=== PATIENT | male | born 1955 | race Caucasian/White ===

== ENCOUNTER 2017-07-30 16:29 | Emergency (ER) | payer OTHER ==
[2017-07-30] MEDS: IBUPROFEN 600 MG TAB PO ×2 (17:09)
[2017-07-30 18:08] LABS: INFLUENZA A AMPLIFICATION NEGATIVE (NEGATIVE); INFLUENZA B AMPLIFICATION NEGATIVE (NEGATIVE)
[2017-07-30] MEDS: cefTRIAXone SOD 1 GM VIAL (J0696) IM ×2 (18:32)
== END 2017-07-30 18:56 | disposition home or self-care (01) ==
LOC: M ED 16:29
DX: J06.9 Acute upper respiratory infection, unspecified (principal); F17.200 Nicotine dependence, unspecified, uncomplicated
CPT/HCPCS: J0696

== ENCOUNTER → 2018-07-07 | Outpatient (CLI) | payer OTHER ==
[~2018-07-07] MED LIST: LISI10TA2 PO; PROAAER10 INH; ZITHTAB PO
--- NOTE | 2018-07-07 12:42 | REP ---
Chest x-ray: Two views. History: Cough. History of pneumonia. Comparison study: July 30, 2017. Findings: There is a 2.2 cm noncalcified lung nodule projecting in the right upper lobe region. This merits further evaluation. Remaining lung mena appear clear. Pleural angles are sharp. Heart is not enlarged. There is mild vascular calcification. Mild degenerative changes are seen in the thoracic spine. Impression: 2.2 cm pulmonary nodule right upper lobe. Recommend chest CT study. Otherwise no active disease. Electronically Signed by Justin Orosco MD 07/07/2018 12:33 P
== END ==
LOC: M SMT 08:45
PROVIDERS: ATTEND Internal Medicine Pulmonary Disease
DX: R91.1 Solitary pulmonary nodule (principal)

== ENCOUNTER → 2018-08-07 | Outpatient (CLI) | payer OTHER ==
[~2018-08-07] MED LIST changes: +ISOVUE-370 76% 100ML VIAL (Q9967) As Ordered ONE
--- NOTE | 2018-08-07 11:27 | REP ---
CT CHEST WITH IV CONTRAST: HISTORY: Mild persistent uncomplicated asthma. Comparison chest x-ray July 12, 2018. CT CONTRAST DOSE: 75 mL of intravenous Isovue 370. CT FINDINGS: CT study confirms the presence of a spiculated right upper lobe lung nodule measuring 2.4 x 1.8 x 1.8 cm. This is suspicious for primary malignancy. There is no evidence of mediastinal or hilar lymphadenopathy. No pleural effusion is seen. No adrenal lesion is seen. There is an accessory splenule in the left upper quadrant. There is mild fatty infiltration of the liver. No bony destructive lesion is appreciated. No other pulmonary lesion is seen. IMPRESSION: 2.4 cm spiculated nodule in the right upper lobe suspicious for primary pulmonary malignancy. Histologic sampling and PET/CT scanning should be considered. Electronically Signed by Justin Orosco MD 08/07/2018 11:41 A
== END ==
LOC: M RAD 10:05
PROVIDERS: ATTEND Internal Medicine Pulmonary Disease
DX: J45.30 Mild persistent asthma, uncomplicated (principal); R91.1 Solitary pulmonary nodule
CPT/HCPCS: 71260; Q9967

== ENCOUNTER → 2018-08-17 | Outpatient (REF) | payer OTHER ==
[~2018-08-17] MED LIST changes: -ISOVUE-370 76% 100ML VIAL (Q9967) As Ordered ONE
== END ==
LOC: M LAB REF 17:51
PROVIDERS: ATTEND Internal Medicine Pulmonary Disease
DX: R91.8 Other nonspecific abnormal finding of lung field (principal)

== ENCOUNTER → 2018-08-18 | Outpatient (REF) | payer OTHER | LOC: M LAB REF 17:06 | PROVIDERS: ATTEND Internal Medicine Pulmonary Disease | DX: Z01.812 Encounter for preprocedural laboratory examination (principal); R91.8 Other nonspecific abnormal finding of lung field ==

== ENCOUNTER → 2018-08-24 | Outpatient (CLI) | payer OTHER ==
[2018-08-24 08:24] LABS: INR 0.93; PROTHROMBIN TIME 12.6 SECONDS (12.1-14.4)
[2018-08-24 08:25] LABS: PARTIAL THROMBOPLASTIN TIME 33.9 SECONDS (25.4-37.6)
== END ==
LOC: M LAB 07:13
PROVIDERS: ATTEND Internal Medicine Pulmonary Disease
DX: R91.8 Other nonspecific abnormal finding of lung field (principal)

== ENCOUNTER → 2018-08-28 | Outpatient (CLI) | payer OTHER ==
[~2018-08-28] MED LIST changes: +LIDOCAINE 1% MDV 20ML VIAL As Ordered ONE
--- NOTE | 2018-08-28 10:56 | REP ---
Chest x-ray: Single view. History: Post procedure pneumothorax. The patient status post CT guided needle biopsy right lung nodule. Findings: There is a 15-20% right-sided pneumothorax. This is unchanged from imaging done after the biopsy in the CT suite. Impression: Small post biopsy right sided pneumothorax. A followup film is to be performed in 2 hours. Electronically Signed by Justin Orosco MD 08/28/2018 07:16 P
--- NOTE | 2018-08-28 13:16 | REP ---
Follow-up chest x-ray: PA view. A 12:46 p.m. film. Comparison study 10:33 a.m. on this same date. History: Right-sided pneumothorax status post CT guided needle biopsy attempt. Findings: The current film demonstrates improvement in the size of the small right-sided pneumothorax, 5-10%. The patient is essentially asymptomatic and will be released. The reattempts is percutaneous needle biopsy at a different dates. The patient will follow-up with Dr. Holm as per previous arrangements. Impression: Improvement noted in the small right-sided pneumothorax. Electronically Signed by Justin Orosco MD 08/28/2018 01:07 P
--- NOTE | 2018-08-28 19:17 | REP ---
CT-guided right lobe lung biopsy The procedure is performed by HAZEL Tao, under the personal supervision of Dr. Orosco. The patient has a history of a spiculated right upper lobe lung nodule measuring 2.4 x 1.8 x 1.[address] dated 08/07/2018. The risks and benefits of the procedure were explained to the patient and informed consent was obtained both orally and written. Directly prior to the start of the procedure, a formal timeout was done in the exam room. The right upper lobe lung nodule was localized using CT guidance. Skin was prepped and draped in the usual sterile fashion. 8 ml of 1% lidocaine was used as a local anesthetic. Using CT guidance, a 19/20 gauge coaxial needle biopsy system was inserted and advanced towards the nodule. Pre biopsy imaging showed a pneumothorax had occurred, displacing the nodule too far away to allow for the procedure to continue. The patient was placed on 3 liters/min of oxygen via nasal cannula.. The patient was brought back to the department, serial chest x-rays show the pneumothorax to be improved. Dr. Emilee Charles was consulted. The patient is being discharged to follow up with Dr. Holm. He was given an appointment for repeat CT guided needle biopsy. After the appropriate amount of monitored convalescence the patient was discharged from the department. Reviewed by HAZEL Matute 08/28/2018 01:21 P Electronically Signed by Justin Orosco MD 08/28/2018 07:08 P
== END ==
LOC: M RADPRO 08:37
PROVIDERS: ATTEND Internal Medicine Pulmonary Disease
DX: R91.8 Other nonspecific abnormal finding of lung field (principal); J93.9 Pneumothorax, unspecified; Z79.899 Other long term (current) drug therapy

== ENCOUNTER → 2018-09-13 | Outpatient (CLI) | payer OTHER ==
[~2018-09-13] MED LIST changes: +FLON1SPR; +MULTCAP PO
--- NOTE | 2018-09-13 11:11 | REP ---
POST BIOPSY CHEST: A single post biopsy film of the chest is performed. There is a very small right pneumothorax status post right lung biopsy. Right upper lobe mass is again seen. Heart is not enlarged and there is mild calcification of the thoracic aorta. IMPRESSION: Very small right pneumothorax status post right lung biopsy. Electronically Signed by Bebo Daily MD 09/13/2018 02:12 P
--- NOTE | 2018-09-13 13:32 | REP ---
CHEST, SINGLE VIEW: Single view of the chest is performed. Comparison is made with prior exam of the same day. A very small right pneumothorax is again seen, stable, status post right lung biopsy. There are no other new findings. IMPRESSION: Stable small right pneumothorax status post right lung biopsy. Electronically Signed by Bebo Daily MD 09/13/2018 02:17 P
--- NOTE | 2018-09-13 14:18 | REP ---
CT-guided right lobe lung biopsy The procedure is performed by HAZEL Tao, under the personal supervision of Dr. Daily. The patient has a history of a spiculated right upper lobe lung nodule measuring 2.4 x 1.8 x 1.[address] dated 08/07/2018. The risks and benefits of the procedure were explained to the patient and informed consent was obtained both orally and written. Directly prior to the start of the procedure, a formal timeout was done in the exam room. The right upper lobe lung nodule was localized using CT guidance. Skin was prepped and draped in the usual sterile fashion. 13 ml of 1% lidocaine was used as a local anesthetic. Using CT guidance a 19/20 gauge coaxial needle biopsy system was inserted and advanced into the nodule. 4 core biopsy samples were obtained and sent to the lab. CT images obtained directly after the biopsy show evidence of a small pneumothorax, and the patient was put on 2 liters of oxygen via nasal cannula. A series of chest radiographs demonstrated a small pneumothorax that was not worsening . After the appropriate amount of monitored convalescence the patient was discharged from the department. Reviewed by HAZEL Matute 09/13/2018 01:16 P Electronically Signed by Bebo Daily MD 09/13/2018 02:09 P
== END ==
LOC: M RADPRO 08:05
PROVIDERS: ATTEND Internal Medicine Pulmonary Disease
DX: C34.11 Malignant neoplasm of upper lobe, right bronchus or lung (principal); J95.811 Postprocedural pneumothorax

== ENCOUNTER → 2018-10-11 | Outpatient (CLI) | payer OTHER ==
[~2018-10-11] MED LIST changes: -LIDOCAINE 1% MDV 20ML VIAL As Ordered ONE
[2018-10-11 14:38] LABS: BASO # 0.1 10^3/uL (0.0-0.2); BASO % 0.4 % (0.0-1.0); EOS # 0.1 10^3/uL (0.0-0.50); HEMATOCRIT 46.4 % (42.0-52.0); HEMOGLOBIN 15.2 g/dl (13.5-17.5); LYMPH # 1.8 10^3/uL (1.5-4.5); LYMPH % 16.1 % (24.0-44.0); MEAN CORPUSCULAR HGB CONC 32.8 g/dl (32.0-36.5); MEAN CORPUSCULAR VOLUME 85.6 fl (80.0-96.0); MONO # 0.6 10^3/uL (0.0-0.8); MONO % 5.4 % (0.0-5.0); NEUTROPHILS # 8.6 10^3/uL (1.8-7.7); NEUTROPHILS % 76.8 % (36.0-66.0); PLATELET COUNT, AUTOMATED 231 10^3/uL (150-450); RED BLOOD COUNT 5.42 10^6/uL (4.30-6.10); WHITE BLOOD COUNT 11.2 10^3/uL (4.0-10.0)
[2018-10-11 14:52] LABS: INR 0.93; PROTHROMBIN TIME 12.2 SECONDS (11.8-14.0)
[2018-10-11 14:53] LABS: PARTIAL THROMBOPLASTIN TIME 32.5 SECONDS (25.0-38.4)
[2018-10-11 15:01] LABS: BLOOD UREA NITROGEN 13 MG/DL (7-18); CALCIUM LEVEL 9.2 MG/DL (8.8-10.2); CARBON DIOXIDE LEVEL 29 MEQ/L (21-32); CHLORIDE LEVEL 103 MEQ/L (98-107); CREATININE FOR GFR 1.04 MG/DL (0.70-1.30); GLOMERULAR FILTRATION RATE > 60.0 (>49); GLUCOSE, FASTING 113 MG/DL (70-100); POTASSIUM SERUM 4.1 MEQ/L (3.5-5.1); SODIUM LEVEL 137 MEQ/L (136-145)
[2018-10-11 15:34] LABS: APPEARANCE, URINE CLEAR (CLEAR); BACTERIA, URINE AUTO NEGATIVE (NEGATIVE); BILIRUBIN, URINE AUTO NEGATIVE (NEGATIVE); BLOOD, URINE BLOOD NEGATIVE (NEGATIVE); COLOR, URINE STRAW (YELLOW); GLUCOSE, URINE (UA) AUTO NEGATIVE (NEGATIVE); KETONE, URINE AUTO NEGATIVE (NEGATIVE); LEUKOCYTE ESTERASE, URINE AUTO NEGATIVE (NEGATIVE); MUCUS, URINE SMALL (NEGATIVE); NITRITE, URINE AUTO NEGATIVE (NEGATIVE); PROTEIN, URINE AUTO NEGATIVE (NEGATIVE); RBC, URINE AUTO 1 /HPF (0-3); SPECIFIC GRAVITY URINE AUTO 1.009 (1.002-1.035); SQUAMOUS EPITHELIAL CELL UR AU 0 /HPF (0-6); UROBILINOGEN, URINE AUTO 0.2 mg/dL (0.0-2.0); WBC, URINE AUTO 0 /HPF (0-3)
--- NOTE | 2018-10-12 09:41 | REP ---
Clinical: Preoperative assessment. Lung cancer . Comparison: 07/07/2018 . Technique: PA and lateral. Findings: The mediastinum and cardiac silhouette are normal. No acute consolidation, effusion, or pneumothorax. Right upper lobe mass unchanged. The skeletal structures are intact and normal. Impression: 1. No acute cardiopulmonary process. 2. known right upper lobe mass unchanged. Electronically Signed by Sesar Dorado MD 10/11/2018 03:27 P
== END ==
LOC: M ADMPAT 14:03
PROVIDERS: ATTEND Thoracic Surgery (Cardiothoracic Vascular Surgery)
DX: C34.11 Malignant neoplasm of upper lobe, right bronchus or lung (principal)

== ENCOUNTER 2018-10-26 07:02 | Inpatient (IN) | payer OTHER ==
[2018-10-11 14:02] LABS: ABG BASE EXCESS 2.5 (-2.0-2.0); ABG HCO3 26.9 MEQ/L (22.0-26.0); ABG O2 SATURATION 94.8 % (95.0-99.0); ABG PARTIAL PRESSURE CO2 40.8 mmHg (35.0-45.0); ABG PARTIAL PRESSURE O2 71.3 mmHg (75.0-100.0); ABG STANDARD HCO3 26.6 MEQ/L (22.0-26.0); ABG TOTAL CO2 28.2 MEQ/L (23.0-31.0); ABG pH (ARTERIAL) 7.437 UNITS (7.350-7.450)
--- NOTE | 2018-10-13 00:03 | ECGEPIP ---
[facility] Test Date: 2018-10-11 Pat Name: ALAN JULIAN Department: Room: - Gender: Male House Coordinator: GULSHAN : 1955 Requested By: Angel Gill Order Number: [id number] Reading MD: Fercho Zepeda Measurements Intervals [place] Rate: 74 P: 34 OK: 147 QRS: QRSD: 110 T: 6 QT: 351 QTc: 391 Interpretive Statements SINUS RHYTHM MARKED LEFT AXIS DEVIATION/LAHB No prior tracing in the system Electronically Signed on 10-13-2018 0:02:47 EDT by Fercho Zepeda
[2018-10-26] VITALS (9 sets, daily range): BP systolic 85–127; BP diastolic 59–92
[~2018-10-26] VITALS: Ht 177.8 cm; Wt 103.3 kg
[~2018-10-26 07:02] MED LIST changes: +LR 1,000 ML IV ONE; +MUPIROCIN 2% OINT 22 GM TUBE TOP ONE
[2018-10-26] MEDS ORDERED: BUPIVACAINE LIPOSOME/PF 1.3% 20ML VIAL (13.3MG/ML)(EXPAREL)(C9290 PER1MG) As Ordered ONE (07:22)
[2018-10-26] MEDS ORDERED: BUPIVACAINE HCL 0.5% 10 ML VIAL As Ordered ONE (07:24)
[2018-10-26] MEDS ORDERED: PROPOFOL 200 MG/20 ML VIAL As Ordered ONE (08:09)
[2018-10-26] MEDS ORDERED: LIDOCAINE 2% INJ 100 MG/5 ML SDV (FOR ANES.) As Ordered ONE ×2 (08:09→12:19)
[2018-10-26] MEDS ORDERED: fentaNYL 100 MCG/2 ML INJECTION (J3010) As Ordered ONE ×3 (08:09→13:55)
[2018-10-26] MEDS ORDERED: ROCURONIUM BROMIDE 50 MG/5 ML VIAL As Ordered ONE ×2 (08:09→11:46)
[2018-10-26] MEDS ORDERED: ONDANSETRON 4MG/2ML VIAL (J2405) As Ordered ONE (08:09)
[2018-10-26] MEDS ORDERED: dexameTHASONE 4 MG/ML 1ML VIAL (J1100) As Ordered ONE (08:09)
[2018-10-26] MEDS ORDERED: SUGAMMADEX SODIUM 500 MG/5 ML VIAL (BRIDION) As Ordered ONE (08:09)
[2018-10-26] MEDS ORDERED: MIDAZOLAM INJ 2 MG/2 ML VIAL (J2250) As Ordered ONE ×3 (08:10→09:06)
[2018-10-26] MEDS ORDERED: CETACAINE SPRAY 5GM As Ordered ONE (08:47)
[2018-10-26] MEDS: MIDAZOLAM INJ 2 MG/2 ML VIAL (J2250) IV SCH ×3 (08:49→09:06)
[2018-10-26] MEDS: fentaNYL 100 MCG/2 ML INJECTION (J3010) IV SCH ×2 (08:49→08:51)
[2018-10-26] MEDS ORDERED: ONDANSETRON 4MG/2ML VIAL (J2405) IV PRN ×3 (10:45→16:30)
[2018-10-26] MEDS ORDERED: WALLBOXKEY XX PRN (10:45)
[2018-10-26] MEDS ORDERED: EPIDURAL/PCA KEYS XX PRN (10:45)
[2018-10-26] MEDS ORDERED: diphenhydrAMINE INJ 50MG/ML VIAL (J1200) IV PRN (10:45)
[2018-10-26] MEDS ORDERED: METOCLOPRAMIDE INJ 10MG/2ML VIAL (J2765) IV PRN (10:45)
[2018-10-26] MEDS ORDERED: NALOXONE INJ 0.4 MG/1 ML VIAL (J2310) IV PRN (10:45)
[2018-10-26] MEDS ORDERED: PHENYLEPHRINE INJ 10MG/ML VIAL (J2370) As Ordered ONE (11:21)
[2018-10-26] MEDS ORDERED: PHENYLephrine HCL 500 MCG/5 ML (100MCG/ML) SYRINGE (J2370) As Ordered ONE (11:48)
[2018-10-26] MEDS ORDERED: LIDOCAINE 2% W/EPIN INJ 20ML **PRES FREE As Ordered ONE (14:33)
[2018-10-26] MEDS ORDERED: ACETAMINOPHEN TAB 650MG DOSE (2X325MG) PO PRN (15:00)
[2018-10-26] MEDS ORDERED: BISACODYL 10 MG SUPP PR PRN (15:00)
[2018-10-26] MEDS ORDERED: KCL 20MEQ IN D5/NS 1000ML 1,000 ML IV SCH (15:00)
[2018-10-26] MEDS ORDERED: FLUTICASONE PROP 0.05% NASAL SPRAY 16 GM (FLONASE) PRN (15:00)
[2018-10-26 15:34] LABS: ABG BASE EXCESS -1.4 (-2.0-2.0); ABG HCO3 26.4 MEQ/L (22.0-26.0); ABG O2 SATURATION 99.1 % (95.0-99.0); ABG PARTIAL PRESSURE CO2 57.8 mmHg (35.0-45.0); ABG PARTIAL PRESSURE O2 161.4 mmHg (75.0-100.0); ABG STANDARD HCO3 23.3 MEQ/L (22.0-26.0); ABG TOTAL CO2 28.2 MEQ/L (23.0-31.0); ABG pH (ARTERIAL) 7.278 UNITS (7.350-7.450)
[2018-10-26] MEDS: FENTANYL/BUPIVACAINE/NACL BAG 250 ML EPIDURAL SCH (15:35)
[2018-10-26 15:44] LABS: BASO % 0.2 % (0.0-1.0); HEMATOCRIT 42.8 % (42.0-52.0); HEMOGLOBIN 13.6 g/dl (13.5-17.5); LYMPH # 0.7 10^3/uL (1.5-4.5); LYMPH % 3.4 % (24.0-44.0); MEAN CORPUSCULAR HEMOGLOBIN 27.9 pg (27.0-33.0); MEAN CORPUSCULAR HGB CONC 31.8 g/dl (32.0-36.5); MEAN CORPUSCULAR VOLUME 87.7 fl (80.0-96.0); MONO # 0.5 10^3/uL (0.0-0.8); MONO % 2.3 % (0.0-5.0); NEUTROPHILS % 93.4 % (36.0-66.0); PLATELET COUNT, AUTOMATED 246 10^3/uL (150-450); RED BLOOD COUNT 4.88 10^6/uL (4.30-6.10); WHITE BLOOD COUNT 21.4 10^3/uL (4.0-10.0)
[2018-10-26] MEDS: KETOROLAC 30 MG/ML VIAL (J1885) IV SCH ×2 (15:45→21:00)
[2018-10-26] MEDS ORDERED: PERCOCET 5MG/325MG TAB As Ordered ONE (15:51)
[2018-10-26] MEDS: PERCOCET 5MG/325MG TAB PO PRN ×2 (15:55→16:25)
[2018-10-26] MEDS: fentaNYL 100 MCG/2 ML INJECTION (J3010) IV PRN ×4 (15:55→16:10)
[2018-10-26 16:12] LABS: BLOOD UREA NITROGEN 10 MG/DL (7-18); CALCIUM LEVEL 9.4 MG/DL (8.8-10.2); CARBON DIOXIDE LEVEL 28 MEQ/L (21-32); CHLORIDE LEVEL 108 MEQ/L (98-107); CREATININE FOR GFR 1.21 MG/DL (0.70-1.30); GLOMERULAR FILTRATION RATE > 60.0 (>49); GLUCOSE, FASTING 144 MG/DL (70-100); SODIUM LEVEL 140 MEQ/L (136-145)
[2018-10-26] MEDS ORDERED: LR 1,000 ML IV SCH (16:30)
[2018-10-26] MEDS: LISINOPRIL 10 MG TAB PO SCH (17:34)
[2018-10-26] MEDS: MOM 30ML SUSPENSION UDC PO SCH (17:43)
[2018-10-26] MEDS: ceFAZolin SOD 1 GM in D5W MINI-BAG PLUS 50 ML IV SCH (17:43)
[2018-10-26] MEDS: PANTOPRAZOLE 40MG TAB (PROTONIX) PO SCH (17:43)
[2018-10-26] MEDS: hydroCHLOROthiazide 12.5 MG CAPSULE PO SCH (17:57)
--- NOTE | 2018-10-26 19:02 | REP ---
AP PORTABLE CHEST: 10/26/2018. Clinical history: Status post bilobectomy in the right lung. Comparison: Chest x-ray 10/11/2018, CT chest of 08/07/2018. Findings: Two new chest tubes in the right hemithorax with volume loss in the right chest. Small apical and medial pneumothorax in the upper chest. No gross effusion. No midline shift. Left lung shows some minimal linear atelectatic change. No effusion. Heart size not grossly enlarged. The aorta is with some calcifications in the arch but without aneurysm. Impression: 1. Status post thoracotomy with volume loss in right lung and with apical and paramediastinal pneumothorax on that right side, small. There is no tension component. Two chest tubes at the upper lung zone on the right side. 2. Some linear atelectatic change left mid lung zone. Electronically Signed by Mauri Elizondo MD 10/26/2018 07:55 P
[2018-10-26] MEDS: LEVALBUTEROL 1.25 MG/0.5 ML CONCENTRATE NEB NEB SCH (19:31)
[2018-10-26] MEDS: DOCUSATE SODIUM 100 MG CAP PO SCH (21:04)
[2018-10-26] MEDS: HEPARIN SOD (PORCINE) 5000 UNITS/ML VIAL SC SCH (21:04)
[2018-10-27] VITALS (9 sets, daily range): BP systolic 90–133; BP diastolic 51–73
[2018-10-27] MEDS: ceFAZolin SOD 1 GM in D5W MINI-BAG PLUS 50 ML IV SCH ×3 (01:58→19:12)
[2018-10-27] MEDS: LEVALBUTEROL 1.25 MG/0.5 ML CONCENTRATE NEB NEB SCH ×4 (02:01→19:40)
[2018-10-27] MEDS: KETOROLAC 30 MG/ML VIAL (J1885) IV SCH ×4 (04:04→21:15)
[2018-10-27 06:33] LABS: ABG BASE EXCESS 2.5 (-2.0-2.0); ABG HCO3 27.5 MEQ/L (22.0-26.0); ABG PARTIAL PRESSURE CO2 43.8 mmHg (35.0-45.0); ABG PARTIAL PRESSURE O2 153.1 mmHg (75.0-100.0); ABG STANDARD HCO3 26.7 MEQ/L (22.0-26.0); ABG TOTAL CO2 28.8 MEQ/L (23.0-31.0); ABG pH (ARTERIAL) 7.415 UNITS (7.350-7.450)
[2018-10-27 07:29] LABS: BASO % 0.2 % (0.0-1.0); EOS % 0.1 % (0.0-3.0); HEMATOCRIT 36.9 % (42.0-52.0); HEMOGLOBIN 12.1 g/dl (13.5-17.5); LYMPH # 1.7 10^3/uL (1.5-4.5); LYMPH % 12.8 % (24.0-44.0); MEAN CORPUSCULAR HEMOGLOBIN 28.7 pg (27.0-33.0); MEAN CORPUSCULAR HGB CONC 32.8 g/dl (32.0-36.5); MEAN CORPUSCULAR VOLUME 87.6 fl (80.0-96.0); MONO # 0.9 10^3/uL (0.0-0.8); NEUTROPHILS # 10.3 10^3/uL (1.8-7.7); NEUTROPHILS % 79.5 % (36.0-66.0); PLATELET COUNT, AUTOMATED 178 10^3/uL (150-450); RED BLOOD COUNT 4.21 10^6/uL (4.30-6.10); WHITE BLOOD COUNT 12.9 10^3/uL (4.0-10.0)
[2018-10-27 07:54] LABS: BLOOD UREA NITROGEN 15 MG/DL (7-18); CALCIUM LEVEL 8.3 MG/DL (8.8-10.2); CARBON DIOXIDE LEVEL 31 MEQ/L (21-32); CHLORIDE LEVEL 105 MEQ/L (98-107); CREATININE FOR GFR 1.25 MG/DL (0.70-1.30); GLOMERULAR FILTRATION RATE > 60.0 (>49); GLUCOSE, FASTING 123 MG/DL (70-100); POTASSIUM SERUM 4.2 MEQ/L (3.5-5.1); SODIUM LEVEL 139 MEQ/L (136-145)
[2018-10-27] MEDS: MOM 30ML SUSPENSION UDC PO SCH (09:00)
--- NOTE | 2018-10-27 09:32 | REP ---
Chest x-ray: Two views. History: Status post bilobectomy. Comparison study: October 26, 2018. Findings: EKG monitoring electrodes overlie the chest. There are two right-sided chest tubes. A small right apical pneumothorax is visible. There is some pleural thickening along the lateral chest wall. Soft tissue emphysema is seen at the chest tube insertion sites outside of the chest. The right lung is otherwise clear. There is discoid atelectasis in the left inferior perihilar region. This is more pronounced than on yesterday's radiograph. Heart is not enlarged. Electronically Signed by Justin Orosco MD 10/27/2018 12:28 P
[2018-10-27] MEDS: HEPARIN SOD (PORCINE) 5000 UNITS/ML VIAL SC SCH ×2 (10:11→21:15)
[2018-10-27] MEDS: hydroCHLOROthiazide 12.5 MG CAPSULE PO SCH (10:16)
[2018-10-27] MEDS: LISINOPRIL 10 MG TAB PO SCH (10:16)
[2018-10-27] MEDS: PANTOPRAZOLE 40MG TAB (PROTONIX) PO SCH (10:17)
[2018-10-27] MEDS: DOCUSATE SODIUM 100 MG CAP PO SCH ×2 (10:17→21:15)
--- NOTE | 2018-10-27 10:45 | RO ---
DATE OF PROCEDURE: 10/26/2018 PREPROCEDURE DIAGNOSIS: Right upper lobe lung cancer. POSTPROCEDURE DIAGNOSIS: Right upper lobe lung cancer. PROCEDURE: Bilobectomy of right upper and right middle lobes, mediastinal node lymphadenectomy, azygous vein flap bronchoplasty, five level rib block and bronchoscopy with BAL times two at the beginning and end of the case. FINDINGS: The bronchoscopy revealed a normal branching tracheobronchial tree. The right upper lobe only had two orifices. It was an increased distance from the kevin. He had some thick secretions which were suction aspirated. The lung resection however revealed very aberrant variant anatomy. There was no major fissure to speak of. The dissection proceeded from anterior to posterior taking the vein and then the truncal pulmonary artery at the hilum. The bronchus was then taken. Even after doing so, I could not create a major fissure because of the thickness of the tissue. Finally, after multiple attempts to create the minor fissure, I decided that it was safer to just proceed with a bilobectomy, therefore the middle lobe was also taken for specimen. Bronchoscopy at the end of the procedure showed increased secretions and these were suction aspirated with bronchoalveolar lavage. He did have numerous aberrant (2.28) branched pulmonary arteries. SURGEON: Angel Lowery MD SALES PERFORMANCE ANALYST: ANESTHESIA: PROCEDURE: Under satisfactory general anesthesia and single lumen tube endotracheal intubation, the bronchoscope was passed into the tracheobronchial tree. He had normal anatomy as described above with a fairly low takeoff of the right upper lobe with only two segments. He had thick secretions which were suction aspirated. The patient then underwent double lumen intubation and the tube was properly positioned. The patient was then turned into the left lateral decubitus position and sterilely prepped and draped in the usual fashion. A posterolateral incision was made and the latissimus dorsi divided. A portion of the serratus anterior was also divided and the incision had to be extended in order to achieve adequate visualization throughout the procedure. The chest was entered through the 5th intercostal space. The first thing that was noted was that there was absence of a minor fissure, except for a rudimentary fissure which was only approximately a centimeter in depth. I therefore decided to approach it from an anterior to posterior strategy. The superior pulmonary vein was then dissected free at the underlying pulmonary artery with preservation of the right middle lobe vein. This was surrounded by umbilical tape. The trunk of the pulmonary artery at the hilum was then carefully dissected after incising the mediastinal pleura. It too, was surrounded by vessel loop. Both of these were then divided by use of vascular VICKEY staplers. Attention was then turned to the posterior portion of the lung where the posterior mediastinal pleura was incised and the right upper lobe bronchus was identified from the takeoff of the right mainstem bronchus and its junction with the bronchus intermedius. The bronchus was then dissected free of the overlying pulmonary artery. An Holstein 4.5 stapler could then be passed around it and fired to complete the bronchial amputation. The remainder of the pulmonary artery was attempted to be dissected without adequate visualization of the posterior descending pulmonary artery. I therefore decided to create the minor fissure. The lung was reinflated and that portion of the lung that inflated was assumed to be the middle lobe and it was marked. I then attempted to create a minor fissure with the Holstein VICKEY stapler. The tissue was just way to thick to accept the sharmila. The lung tissue began tearing and I did not think that it was prudent to continue with that strategy. I therefore converted to a bilobectomy. The remaining middle lobe vein, which had been assiduously preserved, was then divided by use of a VICKEY vascular stapler. The major fissure was completed anteriorly with an Holstein VICKEY stapler. This then left the dissection of the pulmonary artery where two separate middle lobe arteries were identified, coming off separately, and were again divided by use of a VICKEY vascular stapler. The middle lobe bronchus was then divided by an Eschelon 4.5 stapler. The interlobar pulmonary artery was proximally dissected looking for the posterior ascending artery, which was then found and was then ligated in continuity with two #0 silk sutures reinforced by hemoclips. There was one additional upper lobe artery which was not initially appreciated, and this too was divided with a VICKEY stapler. It was just proximal to the posterior ascending pulmonary artery. The specimen was then delivered to the field and sent for pathological examination. Attention was then turned to the superior mediastinum which was incised. The azygous vein was divided at the vena cava and stapled at the hemiazygos vein. It was eventually filleted to form a bronchoplastic flap. The mediastinal nodes were then dissected including the azygous node. The azygous node was sent separately. There were copious amounts of nodes and there was one that had a white contoured hard appearance. The entire block was sent in toto for pathological examination with the distal node next to the azygous node marked with a suture for pathology orientation. After assuring ourselves that there was no lymphatic leak, the mediastinal paratracheal space was then filled with TISSEEL glue. The bronchoplastic flap was then constructed by filleting the azygous vein and suturing it with #3-0 Vicryl sutures to the bronchial stump. Before undertaking the flap, both bronchi were tested at 30 cm of water pressure and were found to be intact. A five level rib block consisting of Marcaine and Exparel was then injected and the ribs were reapproximated by use of #1 Prolene figure-of-8 sutures. The lung was reinflated after placement of two chest tubes, both #24s, a curved and a straight. The extrathoracic muscles were closed with running #0 Vicryl suture. The subcutaneous tissue was closed with running #3-0 Vicryl suture and the skin closed with running #3-0 Monocryl subcuticular suture. The patient was then turned supine and a second bronchoscopy was undertaken as I had difficulty inflating the lung initially after dividing the upper lobe bronchus. He was found to have copious secretions and these were suction aspirated with bronchoalveolar lavage. The patient tolerated the procedure well and left the operating room in satisfactory condition for the recovery room. ROGER
[2018-10-27] MEDS: FENTANYL/BUPIVACAINE/NACL BAG 250 ML EPIDURAL SCH ×2 (12:12→12:14)
[2018-10-27] MEDS ORDERED: FUROSEMIDE 40 MG/4 ML VIAL (J1940) IV ONE (15:00)
--- NOTE | 2018-10-27 19:40 | IPN ---
DATE: 10/27/2018 This is the first postoperative day for Mr. Mcdonnell. He had a stable night of surgery. He is not complaining of any pain. He has been up and around ambulating and walking. His vital signs show a maximum temperature (T max) of 98.6 with a heart rate that ranges between 96 and 104 and is sinus rhythm and a respiratory rate of 18 to 20 without the use of accessory muscles who is 95% saturated on two liters nasal cannula. His blood pressure is ranging between 125/68 to 91/54. His intake and output over the past 24 hours has been recorded as 2060 in and 860 out for a positivity of 1200 mL. He put out 210 mL yesterday from the chest tube and 300 mL in the last 14 hours. He had a small air leak with forceful coughing. On physical examination, he has coarse rhonchi, most of which was cleared with coughing on both sides. Percussion note is full to the diaphragm. Cardiac exam is without murmurs, clicks, gallops or rubs. I cannot feel his point of maximum impulse (PMI). S1, S2 are normal. Abdomen is soft and nontender. Bowel sounds are positive. There is no hepatomegaly. No costovertebral angle (CVA) tenderness. He is slightly tympanitic, however. He has passed flatus. Extremities show trace pretibial edema. No calf tenderness. No differential swelling of the upper extremities. Skin is warm, dry and perfused without cyanosis or mottling, including that of the nail beds and the knees. Neck is supple. There is no jugular venous distention, no subcutaneous emphysema. Trachea is midline. Mouth shows his mucous membranes to be pink and moist. Lips and commissures without lesions. There is no thrush. Eyes show his pupils to be equal and reactive. Extraocular motions intact. Sclerae anicteric. Neurologic shows II-XII intact along with gross motor and gross sensation intact. Gait is not tested. Psychiatric shows him to be awake and alert, oriented times three with appropriate mood and affect and conversational. His white count today is 12.9 down from 21.4 yesterday immediately after surgery. Hemoglobin and hematocrit are 12.1 and 36.9 down from 13.6 and 42.8 yesterday, no doubt secondary to hemodilution. Platelet count is 178 and differential shows 79% neutrophils, 12% lymphocytes, 7% monocytes. There are no immature forms. No toxic granulations. His electrolytes are normal with a BUN and creatinine of 15 and 1.25 with a glucose of 123 and a calcium of 8.3. Today's blood gases show a pH of 7.45, pCO2 of 43, a pO2 of 153 with a base excess of 2.5. His chest x-ray today shows his lung fully expanded to the chest wall. Chest tubes are in good place. There is minimal subcutaneous emphysema at the chest tube insertion sites. Costophrenic angles are sharp. There is obligate volume loss to the right side with a very minimal midline shift to the right. His right diaphragm is elevated secondary to the volume loss of the right lung. IMPRESSION: 1. Clinical stage I adenocarcinoma; pathology pending. 2. Postoperative day #1 status post bilobectomy right upper and middle lobes. 3. Chronic obstructive pulmonary disease (COPD). 4. Hypertension. PLAN AND DISCUSSION: I will transfer him to the progressive care unit (PCU) today. I will also diurese him today. I will continue his chest tube on suction. I am very gratified at how well he is doing postoperative day #1.
[2018-10-28] VITALS: BP 117/67
[2018-10-28] MEDS: LEVALBUTEROL 1.25 MG/0.5 ML CONCENTRATE NEB NEB SCH ×4 (01:39→19:46)
[2018-10-28] MEDS: ceFAZolin SOD 1 GM in D5W MINI-BAG PLUS 50 ML IV SCH ×2 (02:40→10:06)
[2018-10-28] MEDS: KETOROLAC 30 MG/ML VIAL (J1885) IV SCH ×2 (04:48→10:07)
[2018-10-28 05:14] LABS: BASO % 0.2 % (0.0-1.0); EOS # 0.1 10^3/uL (0.0-0.50); EOS % 0.4 % (0.0-3.0); HEMATOCRIT 35.2 % (42.0-52.0); HEMOGLOBIN 11.3 g/dl (13.5-17.5); LYMPH # 1.7 10^3/uL (1.5-4.5); MEAN CORPUSCULAR HEMOGLOBIN 28.2 pg (27.0-33.0); MEAN CORPUSCULAR HGB CONC 32.1 g/dl (32.0-36.5); MEAN CORPUSCULAR VOLUME 87.8 fl (80.0-96.0); MONO % 7.1 % (0.0-5.0); NEUTROPHILS # 11.3 10^3/uL (1.8-7.7); NEUTROPHILS % 79.9 % (36.0-66.0); PLATELET COUNT, AUTOMATED 163 10^3/uL (150-450); RED BLOOD COUNT 4.01 10^6/uL (4.30-6.10); WHITE BLOOD COUNT 14.2 10^3/uL (4.0-10.0)
[2018-10-28 05:34] LABS: CALCIUM LEVEL 7.9 MG/DL (8.8-10.2); CREATININE FOR GFR 1.33 MG/DL (0.70-1.30); GLOMERULAR FILTRATION RATE 58.2 (>49); POTASSIUM SERUM 4.3 MEQ/L (3.5-5.1)
[2018-10-28 06:00] VITALS: BP 120/66
[2018-10-28 08:00] VITALS: BP 133/80
[2018-10-28] MEDS: FENTANYL/BUPIVACAINE/NACL BAG 250 ML EPIDURAL SCH (08:06)
[2018-10-28] MEDS: DOCUSATE SODIUM 100 MG CAP PO SCH ×2 (08:06→20:51)
[2018-10-28] MEDS: PANTOPRAZOLE 40MG TAB (PROTONIX) PO SCH (08:06)
[2018-10-28] MEDS: hydroCHLOROthiazide 12.5 MG CAPSULE PO SCH (08:08)
[2018-10-28] MEDS: MOM 30ML SUSPENSION UDC PO SCH (08:08)
[2018-10-28] MEDS: LISINOPRIL 10 MG TAB PO SCH (08:08)
[2018-10-28] MEDS: HEPARIN SOD (PORCINE) 5000 UNITS/ML VIAL SC SCH ×2 (08:09→20:51)
--- NOTE | 2018-10-28 09:50 | REP ---
Chest x-ray: Two views. History: Status post by lobectomy. Comparison study: October 27, 2018. Findings: EKG monitoring electrodes are seen. An epidural catheter is noted. There are two right chest tubes noted in place. A small right apical pneumothorax is again seen. There is plate-like atelectasis in the left base unchanged. No new infiltrate is seen. Lungs are otherwise clear. Electronically Signed by Justin Orosco MD 10/28/2018 09:41 A
--- NOTE | 2018-10-28 10:55 | IPN ---
DATE: 10/28/2018 This is now the second postoperative day for Mr. Mcdonnell after his right upper and middle lobe bilobectomy. His pain is being well controlled with the epidural. His vital signs show a maximum temperature (T max) of 98.6 with a heart rate that ranges between 95 and 103 and is sinus rhythm, respiratory rate of 18 to 22 without the use of accessory muscles who is 96% saturated on 2 liters nasal cannula and whose blood pressure is ranging between 133/80 to 117/67. His intake and output over the past 24 hours has been recorded as 3318 in and 2455 out for a positivity of 860 mL. He put 445 mL out the chest tube and there is an air leak with forceful coughing. He has put 2000 mL out in urine. On physical examination, he has bilateral wheezing on both lungs during expiration. Percussion note is full to the diaphragm. Cardiac exam is without murmurs, clicks, gallops or rubs. I cannot feel his point of maximum impulse (PMI). S1 and S2 are normal. Abdomen is soft and nontender, but distended with active bowel sounds. He has not yet had a bowel movement, but he is passing flatus. Extremities show trace pretibial edema. No calf tenderness. No differential swelling of the upper extremities. Skin is warm, dry and perfused without cyanosis or mottling, including that of the nail beds and the knees. Neck is supple. There is no jugular venous distention, no subcutaneous emphysema. Trachea is midline. Mouth shows his mucous membranes to be pink and moist. Lips and commissures without lesions. There is no thrush. Eyes show his pupils to be equal and reactive. Extraocular motions intact. Sclerae nonicteric. Neurologic shows II-XII intact along with gross motor and gross sensation intact. Gait is not tested. Psychiatric showed him to be awake and alert, oriented times three with appropriate mood and affect and conversational. His white count today is 14.2 up slightly from 12.9 yesterday. Hemoglobin and hematocrit are 11.3 and 35.2, down from 12.1 and 36.9 yesterday. Platelet count is 163 and stable, differential shows 79% neutrophils, 12% lymphocytes, 7% monocytes. There are no immature forms. No toxic granulations. His electrolytes show a marginally high total CO2 of 33 with a BUN and creatinine of 20 and 1.33, up from 15 and 1.25 yesterday. Glucose is 121 with a calcium of 7.9. I will hold his Toradol today. His chest x-ray shows his lung fully expanded to the chest wall except for a very small apical air space in the right upper hemithorax. There are no infiltrates. Costophrenic angles are sharp and the chest tubes are in good place. There is gastric dilatation. There is minimal subcutaneus emphysema at the chest tube insertion sites. Pathology is still pending. IMPRESSION: 1. Postop day 2 status post right middle and upper lobe bilobectomy. 2. Clinical stage IA3 adenocarcinoma; final pathology pending. 3. Chronic obstructive pulmonary disease (COPD). 4. Hypertension. PLAN AND DISCUSSION: I will gently diurese him today. I will however hold his Toradol. His pain is being well controlled by use of the epidural and his blood pressure is quite adequate.
[2018-10-28] MEDS ORDERED: FUROSEMIDE 40 MG/4 ML VIAL (J1940) IV ONE (11:00)
[2018-10-28 12:00] VITALS: BP 129/73
[2018-10-28 16:00] VITALS: BP 126/73
[2018-10-28 20:00] VITALS: BP 119/68
[2018-10-29] VITALS: BP 122/76
[2018-10-29] MEDS: LEVALBUTEROL 1.25 MG/0.5 ML CONCENTRATE NEB NEB SCH ×4 (01:05→20:50)
[2018-10-29 04:00] VITALS: BP 129/80
[2018-10-29] MEDS: FENTANYL/BUPIVACAINE/NACL BAG 250 ML EPIDURAL SCH (04:34)
[2018-10-29 05:05] LABS: BASO # 0.1 10^3/uL (0.0-0.2); BASO % 0.4 % (0.0-1.0); EOS # 0.3 10^3/uL (0.0-0.50); EOS % 2.2 % (0.0-3.0); HEMATOCRIT 35.3 % (42.0-52.0); HEMOGLOBIN 11.2 g/dl (13.5-17.5); LYMPH # 1.7 10^3/uL (1.5-4.5); LYMPH % 12.9 % (24.0-44.0); MEAN CORPUSCULAR HEMOGLOBIN 27.1 pg (27.0-33.0); MEAN CORPUSCULAR HGB CONC 31.7 g/dl (32.0-36.5); MEAN CORPUSCULAR VOLUME 85.3 fl (80.0-96.0); MONO # 0.8 10^3/uL (0.0-0.8); MONO % 6.2 % (0.0-5.0); NEUTROPHILS # 10.4 10^3/uL (1.8-7.7); NEUTROPHILS % 77.8 % (36.0-66.0); PLATELET COUNT, AUTOMATED 176 10^3/uL (150-450); RED BLOOD COUNT 4.14 10^6/uL (4.30-6.10); WHITE BLOOD COUNT 13.4 10^3/uL (4.0-10.0)
[2018-10-29 05:31] LABS: BLOOD UREA NITROGEN 20 MG/DL (7-18); CALCIUM LEVEL 8.5 MG/DL (8.8-10.2); CARBON DIOXIDE LEVEL 35 MEQ/L (21-32); CHLORIDE LEVEL 100 MEQ/L (98-107); CREATININE FOR GFR 1.24 MG/DL (0.70-1.30); GLOMERULAR FILTRATION RATE > 60.0 (>49); GLUCOSE, FASTING 115 MG/DL (70-100); POTASSIUM SERUM 4.4 MEQ/L (3.5-5.1); SODIUM LEVEL 137 MEQ/L (136-145)
--- NOTE | 2018-10-29 08:18 | REP ---
Chest x-ray: Two views. History: Status post standby lobectomy. Comparison study: October 28, 2018. Findings: Two right-sided chest tubes are noted. A small right apical pneumothorax is again seen. This is unchanged. There is extrathoracic soft tissue emphysema in the supraclavicular and right lateral chest wall soft tissues. Plate-like atelectasis is noted on the left. No new infiltrate is seen. Right hemidiaphragm remains elevated. There is some mild plate-like atelectasis in the right base as well. Electronically Signed by Justin Orosco MD 10/29/2018 08:08 A
[2018-10-29] MEDS: LISINOPRIL 10 MG TAB PO SCH (08:56)
[2018-10-29] MEDS: HEPARIN SOD (PORCINE) 5000 UNITS/ML VIAL SC SCH ×2 (08:56→20:40)
[2018-10-29] MEDS: hydroCHLOROthiazide 12.5 MG CAPSULE PO SCH (08:57)
[2018-10-29] MEDS: PANTOPRAZOLE 40MG TAB (PROTONIX) PO SCH (08:57)
[2018-10-29] MEDS: MOM 30ML SUSPENSION UDC PO SCH (08:57)
[2018-10-29] MEDS: DOCUSATE SODIUM 100 MG CAP PO SCH ×2 (08:57→20:41)
[2018-10-29] MEDS ORDERED: FUROSEMIDE 40 MG/4 ML VIAL (J1940) IV ONE (10:00)
[2018-10-29] MEDS: KETOROLAC 30 MG/ML VIAL (J1885) IV SCH ×3 (10:40→20:40)
--- NOTE | 2018-10-29 10:48 | IPN ---
DATE: 10/29/2018 This is Mr. Mcdonnell's third postoperative day. His pain is being well controlled, and he is doing well. He has a very small air leak with forceful coughing. His vital signs show a maximum temperature (T max) of 97.8 with a heart rate that ranges between 100 and 95 and is sinus rhythm with a respiratory rate of 22 to 18 without the use of accessory muscles who is 93% saturated on 2 liters nasal cannula and whose blood pressure is ranging between 129/75 to 133/80. His intake and output over the past 24 hours has been recorded as only 592 in and 2710 out for a negativity of 2118 mL. He has put 310 mL out the chest tube, and there is a small air leak with forceful cough. On physical examination, he still has bilateral wheezing during expiration on both sides, but it is much improved over yesterday. Percussion note is full to the diaphragm. Cardiac exam is without murmurs, clicks, gallops or rubs. I cannot feel his point of maximum impulse (PMI). S1, S2 are normal. Abdomen is soft and nontender. Bowel sounds are positive. He is less distended. There is no costovertebral angle (CVA) tenderness or hepatomegaly. He has had a bowel movement today. His extremities show no pretibial edema, no calf tenderness. No differential swelling of the upper extremities. Skin is warm, dry and perfused without cyanosis or mottling, including that of the nail beds and the knees. Neck is supple. There is no jugular venous distention, no subcutaneous emphysema. Trachea is midline. Mouth shows his mucous membranes to be pink and moist. Lips and commissures without lesions. There is no thrush. Eyes show his pupils to be equal and reactive. Extraocular motions intact. Sclerae anicteric. Neurologic shows II-XII intact along with gross motor and gross sensation intact. Gait is not tested. Psychiatric shows him to be awake and alert, oriented times three with appropriate mood and affect and conversational. His white count today is 13.4, down from 14.2 yesterday. Hemoglobin and hematocrit are 11.2 and 35.3 respectively, unchanged. Platelet count is 176 and stable and differential shows 77% neutrophils, 12% lymphocytes, 6% monocytes. There are no immature forms. No toxic granulations. His electrolytes are normal with a marginally elevated total CO2 of 35. BUN and creatinine are 20 and 1.24 down from 20 and 1.33 yesterday. Glucose is 115 with a calcium of 8.5. There are no blood gases on him today. His chest x-ray shows a small apical air space. There is some subcutaneous emphysema at the base of the neck, which is not palpable on physical examination. Chest tubes are in good place. Costophrenic angles are sharp, and there is obligate volume loss from the bilobectomy on the right side. IMPRESSION: 1. Postoperative day #3, status post right middle and upper bilobectomy. 2. Clinical stage IA3 adenocarcinoma; final pathology pending. 3. Chronic obstructive pulmonary disease (COPD). 4. Hypertension. PLAN AND DISCUSSION: I will discontinue his chest tube from suction today. I will also again diurese him. He is written for progressive care unit (PCU) status; however, there are no beds in the PCU at this time.
[2018-10-29 11:55] VITALS: BP 141/74
[2018-10-29 16:00] VITALS: BP 122/75
[2018-10-29 20:00] VITALS: BP 132/82
[2018-10-29 22:00] VITALS: BP 132/82
[2018-10-30] VITALS (7 sets, daily range): BP systolic 109–132; BP diastolic 58–82
[2018-10-30] MEDS: LEVALBUTEROL 1.25 MG/0.5 ML CONCENTRATE NEB NEB SCH ×4 (01:08→20:05)
[2018-10-30] MEDS: FENTANYL/BUPIVACAINE/NACL BAG 250 ML EPIDURAL SCH ×2 (01:45→18:24)
[2018-10-30] MEDS: KETOROLAC 30 MG/ML VIAL (J1885) IV SCH ×4 (03:47→21:30)
[2018-10-30 06:18] LABS: BASO # 0.1 10^3/uL (0.0-0.2); BASO % 0.4 % (0.0-1.0); EOS # 0.5 10^3/uL (0.0-0.50); HEMATOCRIT 33.7 % (42.0-52.0); LYMPH # 1.2 10^3/uL (1.5-4.5); LYMPH % 10.8 % (24.0-44.0); MEAN CORPUSCULAR HEMOGLOBIN 27.5 pg (27.0-33.0); MEAN CORPUSCULAR HGB CONC 32.6 g/dl (32.0-36.5); MEAN CORPUSCULAR VOLUME 84.3 fl (80.0-96.0); MONO # 0.8 10^3/uL (0.0-0.8); NEUTROPHILS # 8.9 10^3/uL (1.8-7.7); NEUTROPHILS % 77.4 % (36.0-66.0); PLATELET COUNT, AUTOMATED 191 10^3/uL (150-450); WHITE BLOOD COUNT 11.5 10^3/uL (4.0-10.0)
[2018-10-30 06:45] LABS: BLOOD UREA NITROGEN 22 MG/DL (7-18); CALCIUM LEVEL 8.3 MG/DL (8.8-10.2); CARBON DIOXIDE LEVEL 33 MEQ/L (21-32); CHLORIDE LEVEL 98 MEQ/L (98-107); CREATININE FOR GFR 1.13 MG/DL (0.70-1.30); GLOMERULAR FILTRATION RATE > 60.0 (>49); GLUCOSE, FASTING 125 MG/DL (70-100); POTASSIUM SERUM 3.7 MEQ/L (3.5-5.1); SODIUM LEVEL 136 MEQ/L (136-145)
--- NOTE | 2018-10-30 08:25 | REP ---
PA and lateral chest: Comparison is 10/29/2018. There are two right thoracotomy tubes, unchanged. There is a small right apical pneumothorax, mildly increased size. The subcutaneous emphysema along the right lateral chest wall has increased. Left lung is clear. The discoid atelectasis noted previously in the left lung inferiorly has resolved. Impression: The small right apical pneumothorax has slightly increased in size. The previous discoid atelectasis inferiorly in the left lung has resolved. The subcutaneous emphysema along the right lateral chest wall has increased. Electronically Signed by Bebo Cota MD 10/30/2018 08:16 A
[2018-10-30] MEDS: MOM 30ML SUSPENSION UDC PO SCH (09:00)
[2018-10-30] MEDS: DOCUSATE SODIUM 100 MG CAP PO SCH ×2 (09:00→20:12)
[2018-10-30] MEDS: LISINOPRIL 10 MG TAB PO SCH (10:17)
[2018-10-30] MEDS: HEPARIN SOD (PORCINE) 5000 UNITS/ML VIAL SC SCH ×2 (10:18→21:29)
[2018-10-30] MEDS: PANTOPRAZOLE 40MG TAB (PROTONIX) PO SCH (10:19)
[2018-10-30] MEDS: hydroCHLOROthiazide 12.5 MG CAPSULE PO SCH (10:19)
[2018-10-30] MEDS ORDERED: SLF 3 ML SYR IV PRN (13:45)
--- NOTE | 2018-10-30 15:17 | IPN ---
DATE: 10/30/2018 This is now the fourth postoperative day for Mr. Mcdonnell. His pain is being well controlled, although he still has a small air leak. He is awake and alert. His vital signs show a maximum temperature (Tmax) of 98.5 with a heart rate that ranges between 110 and 99 in a sinus rhythm, respiratory rate of 18 to 22 without the use of accessory muscles, who is 99% on 1 liter nasal cannula, and has blood pressures ranging between 132/82 to 122/70. His intake and output for the past 24 hours recorded as 870 in, 275 out for a negativity of 1205 mL. He put out 105 mL from the chest tube. He has put out 135 mL out in the last 14 hours. Weight today is 105.3 kg compared to 104.2 kg yesterday. On physical examination, his lungs show equal breath sounds on either side. I cannot hear the faint crackles or subcutaneous emphysema on the right side. Percussion notes are full to the diaphragm. Cardiac exam is without murmurs, clicks, gallops, or rubs. I cannot feel his point of maximum impulse (PMI). S1, S2 are normal. Abdomen is soft and nontender. Bowel sounds are positive. There is no hepatomegaly. No costovertebral angle (CVA) tenderness. Extremities show no pretibial edema, no calf tenderness. No differential swelling of the upper extremities. Skin is warm, dry and perfused without cyanosis or mottling, including that of the nail beds and the knees. Neck is supple. There is no jugular venous distention, no subcutaneous emphysema. Trachea is midline. Mouth shows his mucous membranes to be pink and moist. Lips and commissures without lesions. There is no thrush. Eyes show his pupils to be equal and reactive. Extraocular motions intact. Sclerae anicteric. Neurologic shows II-XII intact along with gross motor and gross sensation intact. Gait is not tested. His psychiatric shows him to be awake, alert, oriented times three with appropriate mood and affect and conversational. His white count today is down to 11.5 a hemoglobin and hematocrit of 11.0 and 33.7, respectively. Platelet count of 191 and stable. Differential shows 77% neutrophils, 10% lymphocytes, and 7% monocytes. There are no immature forms. No toxic granulations. His electrolytes are normal with a potassium of 3.7, down from 4.4 yesterday. BUN and creatinine are 22 and 1.13. Glucose is 125 with a calcium 8.3. His chest x-ray today shows the lung apical air space increased with, what I think is, subpulmonic air. Subcutaneous emphysema is worse. There is obligate volume loss from the bilobectomy. I will, therefore, place him back on suction. I see no infiltrates either on the PA film or the lateral film posteriorly. I spoke with Dr. Guzman of pathology, and she indicates to me that the azygous node is positive as well as the lowest mediastinal node. This upstages him from a stage I to a stage III disease. I have informed him of the findings and stressed that he would be eligible for adjuvant chemotherapy. I will ask pathology to send it off for all the appropriate markers. IMPRESSION: 1. Postoperative day #4, status post right middle and upper bilobectomy. 2. Clinical stage, pathological stage, IIIA adenocarcinoma. 3. Chronic obstructive pulmonary disease (COPD). 4. Hypertension. PLAN AND DISCUSSION: I will place his chest tube back on suction. He has a very small air leak, and I will get his lung back to the chest wall. His voice is a bit nasally secondary to subcutaneous emphysema. I do not feel subcutaneous emphysema in palpation in his neck, though he has some at the base of the neck on the PA film.
[2018-10-30] MEDS: SLF 3 ML SYR IV SCH ×2 (16:30→21:30)
[2018-10-31] MEDS: LEVALBUTEROL 1.25 MG/0.5 ML CONCENTRATE NEB NEB SCH ×4 (02:48→23:06)
[2018-10-31 04:00] VITALS: BP 112/63
[2018-10-31] MEDS: KETOROLAC 30 MG/ML VIAL (J1885) IV SCH ×2 (04:08→09:24)
[2018-10-31] MEDS: SLF 3 ML SYR IV SCH ×3 (04:09→20:19)
[2018-10-31 05:55] LABS: BASO % 0.4 % (0.0-1.0); EOS # 0.5 10^3/uL (0.0-0.50); HEMATOCRIT 34.2 % (42.0-52.0); LYMPH # 1.5 10^3/uL (1.5-4.5); LYMPH % 13.2 % (24.0-44.0); MEAN CORPUSCULAR HEMOGLOBIN 27.6 pg (27.0-33.0); MEAN CORPUSCULAR HGB CONC 32.2 g/dl (32.0-36.5); MEAN CORPUSCULAR VOLUME 85.9 fl (80.0-96.0); MONO # 0.7 10^3/uL (0.0-0.8); MONO % 6.5 % (0.0-5.0); NEUTROPHILS # 8.6 10^3/uL (1.8-7.7); NEUTROPHILS % 75.3 % (36.0-66.0); PLATELET COUNT, AUTOMATED 218 10^3/uL (150-450); RED BLOOD COUNT 3.98 10^6/uL (4.30-6.10); WHITE BLOOD COUNT 11.4 10^3/uL (4.0-10.0)
[2018-10-31 06:15] LABS: BLOOD UREA NITROGEN 21 MG/DL (7-18); CALCIUM LEVEL 8.7 MG/DL (8.8-10.2); CARBON DIOXIDE LEVEL 35 MEQ/L (21-32); CHLORIDE LEVEL 100 MEQ/L (98-107); CREATININE FOR GFR 1.14 MG/DL (0.70-1.30); GLOMERULAR FILTRATION RATE > 60.0 (>49); GLUCOSE, FASTING 125 MG/DL (70-100); POTASSIUM SERUM 4.3 MEQ/L (3.5-5.1); SODIUM LEVEL 137 MEQ/L (136-145)
[2018-10-31 07:32] VITALS: BP 127/67
[2018-10-31] MEDS ORDERED: FUROSEMIDE 40 MG/4 ML VIAL (J1940) IV ONE (09:00)
[2018-10-31] MEDS: MOM 30ML SUSPENSION UDC PO SCH (09:00)
[2018-10-31] MEDS: DOCUSATE SODIUM 100 MG CAP PO SCH ×2 (09:00→20:18)
--- NOTE | 2018-10-31 09:21 | REP ---
CHEST X-RAY: Two views. HISTORY: Status post by lobectomy. COMPARISON STUDY: October 30, 2018. FINDINGS: Two left chest tubes remain in place, one anteriorly and the other posteriorly. There is a tiny right apical pneumothorax seen decreased somewhat in size from October 30, 2018. Extrathoracic soft tissue emphysema is seen along the right lateral chest wall extending into the right neck as before. Right hemidiaphragm is elevated. An epidural catheter is seen along with EKG leads. Heart is not enlarged. No infiltrate is seen. IMPRESSION: Interval decrease in the size of a small right apical pneumothorax. Electronically Signed by Justin Orosco MD 10/31/2018 09:53 A
[2018-10-31] MEDS: LISINOPRIL 10 MG TAB PO SCH (09:22)
[2018-10-31] MEDS: hydroCHLOROthiazide 12.5 MG CAPSULE PO SCH (09:22)
[2018-10-31] MEDS: PANTOPRAZOLE 40MG TAB (PROTONIX) PO SCH (09:22)
[2018-10-31] MEDS: HEPARIN SOD (PORCINE) 5000 UNITS/ML VIAL SC SCH ×2 (09:23→20:19)
[2018-10-31 09:56] LABS: MAGNESIUM LEVEL 2.4 MG/DL (1.8-2.4)
--- NOTE | 2018-10-31 09:59 | IPN ---
DATE: 10/31/2018 This is now the 5th postoperative day for Mr. Mcdonnell. He is in good spirits. He still has an air leak however. His vital signs show a maximum temperature (T-max) of 99.1 with a heart rate that ranges between 97 and 104 and in sinus rhythm. Respiratory rate of 18-25 using accessory muscles, who is 92% saturated on room air and his blood pressure is ranging between 125/67 to 109/63. His intake and output over the past 24 hours is recorded as only 216 in and 1900 out for a negativity of 1684 mL. He has put out 250 mL from the chest tube and there is an air leak. He weighed 106.1 kg, weight was 105.3 kg yesterday. My suspicion is that the intake is in accurate. On physical examination, I hear the crackles and subcutaneous emphysema on the right side. I do not feel subcutaneous emphysema. I hear no wheezes or rhonchi or rales. Percussion note is full to the diaphragm. Cardiac exam is without murmurs, clicks, gallops or rubs. I cannot feel his point of maximum impulse (PMI). S1 and S2 are normal. Abdomen is soft and nontender. Bowel sounds are positive. There is no hepatomegaly. No costovertebral angle (CVA) tenderness. Extremities show no pretibial edema with no calf tenderness. No differential swelling of the upper extremities. Skin is warm, dry and perfused without cyanosis or mottling including that of the nail beds and knees. Neck is supple. There is no jugular venous distention. No subcutaneous emphysema. Trachea is midline. Mouth shows his mucous membranes to be pink and moist. Lips and commissures are without lesions. There is no thrush. Eyes show his pupils to be equal and reactive. Extraocular movements intact. Sclerae nonicteric. Neurologic shows II-XII intact along with gross motor and gross sensation intact. Gait is not tested. Psychiatric showed him to be awake, alert and oriented times three with appropriate and affect and conversational. His chest x-ray today shows he has just a small apical airspace at the cupula of the lung. Chest tubes are in good place but the anterior chest tube is a little low. Subcutaneous emphysema seems to be dissipating now. His white count is 11.4 with a hemoglobin and hematocrit of 11 and 34.2 unchanged from yesterday with a platelet count of 218. Differential shows 65% neutrophils, 13% lymphocytes, 6% monocytes. There are no immature forms or toxic granulations. His total CO2 is now up to 35. The remainder of his electrolytes are normal. BUN and creatinine are 21 and 1.14 with a glucose of 125 and a calcium of 8.7. The increased total CO2 may be secondary to Lasix diuresis. IMPRESSION: 1. Postop day #5 status post right middle and upper bilobectomy. 2. Pathologic stage III A adenocarcinoma. 3. Chronic obstructive pulmonary disease. 4. Hypertension. PLAN/DISCUSSION: I will keep his chest tube on suction. I will also diuresis him again today. He still has as nasal-sounding voice but I do not actually feel a subcutaneous emphysema and it looks as though it is starting to dissipate on chest x-ray.
[2018-10-31] MEDS: LEVALBUTEROL 1.25 MG/0.5 ML CONCENTRATE NEB NEB PRN (11:57)
[2018-10-31 12:00] VITALS: BP 112/70
[2018-10-31] MEDS: FENTANYL/BUPIVACAINE/NACL BAG 250 ML EPIDURAL SCH (14:32)
[2018-10-31 16:00] VITALS: BP 114/73
[2018-10-31 20:00] VITALS: BP 122/74
[2018-10-31 23:59] VITALS: BP 119/68
[2018-11-01] MEDS: LEVALBUTEROL 1.25 MG/0.5 ML CONCENTRATE NEB NEB PRN (01:40)
[2018-11-01] MEDS: LEVALBUTEROL 1.25 MG/0.5 ML CONCENTRATE NEB NEB SCH ×4 (02:48→20:37)
[2018-11-01 04:00] VITALS: BP 121/70
[2018-11-01 05:43] LABS: BASO # 0.1 10^3/uL (0.0-0.2); BASO % 0.4 % (0.0-1.0); EOS # 0.5 10^3/uL (0.0-0.50); EOS % 4.4 % (0.0-3.0); HEMATOCRIT 33.6 % (42.0-52.0); HEMOGLOBIN 10.9 g/dl (13.5-17.5); LYMPH # 1.7 10^3/uL (1.5-4.5); LYMPH % 14.6 % (24.0-44.0); MEAN CORPUSCULAR HEMOGLOBIN 28.2 pg (27.0-33.0); MEAN CORPUSCULAR HGB CONC 32.4 g/dl (32.0-36.5); MONO # 0.9 10^3/uL (0.0-0.8); MONO % 7.4 % (0.0-5.0); NEUTROPHILS # 8.6 10^3/uL (1.8-7.7); NEUTROPHILS % 72.5 % (36.0-66.0); PLATELET COUNT, AUTOMATED 236 10^3/uL (150-450); RED BLOOD COUNT 3.86 10^6/uL (4.30-6.10); WHITE BLOOD COUNT 11.9 10^3/uL (4.0-10.0)
[2018-11-01] MEDS: SLF 3 ML SYR IV SCH ×3 (05:50→20:17)
[2018-11-01 06:05] LABS: BLOOD UREA NITROGEN 19 MG/DL (7-18); CALCIUM LEVEL 8.4 MG/DL (8.8-10.2); CARBON DIOXIDE LEVEL 35 MEQ/L (21-32); CHLORIDE LEVEL 99 MEQ/L (98-107); CREATININE FOR GFR 1.12 MG/DL (0.70-1.30); GLOMERULAR FILTRATION RATE > 60.0 (>49); GLUCOSE, FASTING 116 MG/DL (70-100); POTASSIUM SERUM 3.7 MEQ/L (3.5-5.1); SODIUM LEVEL 137 MEQ/L (136-145)
[2018-11-01 08:00] VITALS: BP 143/81
[2018-11-01] MEDS: DOCUSATE SODIUM 100 MG CAP PO SCH ×2 (09:00→20:17)
[2018-11-01] MEDS: MOM 30ML SUSPENSION UDC PO SCH (09:00)
--- NOTE | 2018-11-01 09:02 | REP ---
PA and lateral chest: Comparison is 10/31/2018. The two right thoracotomy tubes are unchanged. There is a small right apical pneumothorax, unchanged. There is subcutaneous emphysema along the right lateral chest wall, unchanged. There is pleural thickening along the right lateral chest wall, unchanged. The right hemidiaphragm is elevated, unchanged. Left lung is clear. Cardiac size is normal. The epidural catheter is unchanged. Impression: No interval change. Electronically Signed by Bebo Cota MD 11/01/2018 08:54 A
[2018-11-01] MEDS: hydroCHLOROthiazide 12.5 MG CAPSULE PO SCH (09:35)
[2018-11-01] MEDS: PANTOPRAZOLE 40MG TAB (PROTONIX) PO SCH (09:35)
[2018-11-01] MEDS: LISINOPRIL 10 MG TAB PO SCH (09:35)
[2018-11-01] MEDS: HEPARIN SOD (PORCINE) 5000 UNITS/ML VIAL SC SCH ×2 (09:38→20:17)
[2018-11-01] MEDS: FENTANYL/BUPIVACAINE/NACL BAG 250 ML EPIDURAL SCH (09:54)
[2018-11-01] MEDS ORDERED: FUROSEMIDE 40 MG/4 ML VIAL (J1940) IV ONE (11:00)
--- NOTE | 2018-11-01 11:49 | IPN ---
DATE OF SERVICE: 11/01/2018 This is now the 6th postoperative day for Mr. Mcdonnell. He still has an air leak. He is feeling well, and his pain is being well controlled. His vital signs show a maximum temperature (Tmax) of 98.9 with a heart rate that ranges between 110 and 82 in a sinus rhythm. Respiratory rate of 18-20 without the use of accessory muscles, who is 91% saturated on room air, and whose blood pressure is ranging between 114/73 to 143/81. His intake and output over the past 24 hours has been recorded as 528 in and 1795 out for a negativity of 1267 mL. He has put out 320 mL from the chest tube, and there is still a small air leak. Weight today is 105.7 kg compared to 106.1 kg yesterday. On physical examination, he has squeaks and crackles in the right hemithorax. Percussion note is full to the diaphragm. I do not feel subcutaneous emphysema, although it is present on a chest x-ray. Cardiac examination is without murmurs, clicks, gallops, or rubs. I cannot feel his point of maximum impulse (PMI). S1 and S2 are normal. Abdomen is soft and nontender. Bowel sounds are positive. There is no hepatomegaly. No costovertebral angle (CVA) tenderness. Extremities show no pretibial edema. No calf tenderness. No differential swelling of the upper extremities. Skin is warm, dry, and perfused without cyanosis or mottling including that of the nail beds and the knees. Neck is supple. There is no jugular venous distention. No subcutaneous emphysema. Trachea is midline. Mouth shows his mucous membranes to be pink and moist. Lips and commissures without lesions. There is no thrush. Eyes show his pupils to be equal and reactive. Extraocular movements intact. Sclerae anicteric. Neurologic shows II-XII intact, along with gross motor and gross sensation intact. Gait is not tested. Psychiatric shows him to be awake, alert, and oriented times three with appropriate and affect and conversational. His white count today is 11.9 essentially unchanged from yesterdays. Hemoglobin and hematocrit are 10.9 and 33.6 again unchanged from yesterday with a platelet count of 236 and stable. Differential shows 72% neutrophils, 14% lymphocytes, 7% monocytes. There are no immature forms, no toxic granulations. His electrolytes are normal except for marginally elevated total CO2 of 35. BUN and creatinine are 19 and 1.19 with a glucose of 116 and a calcium of 8.4. I suspect the total CO2 is secondary to Lasix diuresis. There are no blood gases on him today. His chest x-ray today again shows a small airspace in the upper lung with maybe some small amount of subpulmonic air. His anterior chest tube continues to recede and pull out of the chest. I am not exactly sure why it is doing that, as when I inspect the chest tube, it looks to be in good place and well sutured in. He is leaking via that chest tube, and I am wondering whether the hole may be out of the chest and I just cannot see the correct position of the chest tube on the chest x-ray. It certainly looks within the chest on the lateral film. I do see the small amount of subpulmonic air on the lateral film additionally. Nonetheless, I have clamped the anterior tube, and I will take a chest x-ray later today to see if the lung changes its position. If not, I will pull the chest tube. IMPRESSION: 1. Postoperative day #6, status post right upper and right middle lobe bilobectomy. 2. Pathological stage IIIA adenocarcinoma. 3. Chronic obstructive pulmonary disease (COPD). 4. Hypertension. PLAN AND DISCUSSION: As noted above, I will clamp his anterior chest tube and take a chest x-ray later today. He may come to a blood patch in the near future.
[2018-11-01 12:00] VITALS: BP 122/72
--- NOTE | 2018-11-01 15:19 | REP ---
PA and lateral chest: Comparison is 11/01/2018, earlier today. The two right thoracotomy tubes are unchanged. The small right apical pneumothorax is unchanged. The subcutaneous emphysema along the right lateral chest wall is unchanged. The pleural thickening along the right lateral chest wall is unchanged. The right hemidiaphragm is elevated, unchanged. Left lung is clear. Cardiac size is normal. The epidural catheter is unchanged. Impression: No interval change. Electronically Signed by Bebo Cota MD 11/01/2018 03:11 P
[2018-11-01 16:00] VITALS: BP 112/67
[2018-11-01 20:00] VITALS: BP 136/66
[2018-11-01 23:59] VITALS: BP 111/66
[2018-11-02] MEDS: LEVALBUTEROL 1.25 MG/0.5 ML CONCENTRATE NEB NEB SCH ×4 (03:06→20:32)
[2018-11-02 04:00] VITALS: BP 114/60
[2018-11-02] MEDS: FENTANYL/BUPIVACAINE/NACL BAG 250 ML EPIDURAL SCH (06:19)
[2018-11-02] MEDS: SLF 3 ML SYR IV SCH ×3 (06:34→20:49)
--- NOTE | 2018-11-02 07:47 | REP ---
PA and lateral chest: Comparison is a 11/01/2018. The two right thoracotomy tubes are unchanged. The small right apical pneumothorax is unchanged. The subcutaneous emphysema along the right lateral chest wall is unchanged. The pleural thickening along the right lateral chest wall is unchanged. The right hemidiaphragm is elevated, unchanged. The left lung is clear. The cardiac size is normal. The epidural catheter is unchanged. Impression: There is no interval change. Electronically Signed by Bebo Cota MD 11/02/2018 07:39 A
[2018-11-02 08:00] VITALS: BP 107/59
[2018-11-02] MEDS ORDERED: FUROSEMIDE 40 MG/4 ML VIAL (J1940) IV ONE (08:00)
[2018-11-02] MEDS: HEPARIN SOD (PORCINE) 5000 UNITS/ML VIAL SC SCH ×2 (08:33→20:49)
[2018-11-02] MEDS: hydroCHLOROthiazide 12.5 MG CAPSULE PO SCH (08:34)
[2018-11-02] MEDS: LISINOPRIL 10 MG TAB PO SCH (08:34)
[2018-11-02] MEDS: PANTOPRAZOLE 40MG TAB (PROTONIX) PO SCH (08:35)
[2018-11-02] MEDS: DOCUSATE SODIUM 100 MG CAP PO SCH ×2 (08:35→20:47)
[2018-11-02] MEDS: MOM 30ML SUSPENSION UDC PO SCH (08:35)
[2018-11-02 12:00] VITALS: BP 102/62
[2018-11-02 16:00] VITALS: BP 120/78
[2018-11-02] MEDS: PERCOCET 5MG/325MG TAB PO PRN (17:07)
--- NOTE | 2018-11-02 19:44 | IPN ---
DATE: 11/02/2018 Re-dictation. This is the 7th postoperative day for Mr. Mcdonnell. He remains comfortable with the epidural going at 12 cc/hr. . However, I am going to need to wean the epidural 1 mL an hour and substitute oral pain control. Will also discontinue his Rojas catheter. His vital signs show a maximum temperature (T max) of 98.2 with a heart rate that ranges between 111 and 107 and is sinus rhythm, respiratory rate of 18 to 17 without the use of accessory muscles, who is 95 to 96% saturated on room air and whose blood pressure is ranging between 107/59 to 120/78. His intake and output over the past 24 hours has been recorded as 1284 in and 3415 out for a negativity of 2131 mL. This is the most he has taken in by mouth 1200 mL and his urine output is 3150 mL with a chest tube output of 265 mL with the above air leak. His weight today is 103.4 kg compared to 105.7 kg yesterday. PHYSICAL EXAMINATION: His lungs show normal vesicular sounds on either side. I do not hear the bubbling of the air leak, however, percussion note is full to the diaphragm. Cardiac exam is without murmurs, clicks, gallops or rubs. I cannot feel his point of maximum impulse (PMI). S1, S2 are normal. Abdomen is soft and nontender. Bowel sounds are positive. There is no hepatomegaly. No costovertebral angle (CVA) tenderness. Extremities show no pretibial edema. No calf tenderness. No differential swelling of the upper extremities. Skin is warm, dry and perfused without cyanosis or mottling, including that of the nail beds and the knees. Neck is supple. There is no jugular venous distention. Positive subcutaneous emphysema at the root of the right neck supraclavicularly. Trachea is midline. Mouth shows his mucous membranes to be pink and moist. Lips and commissures without lesions. There is no thrush. Eyes show his pupils to be equal and reactive. Extraocular motions intact. Sclerae anicteric. Neurologic shows II-XII intact along with gross motor and gross sensation intact. Gait is not tested. Psychiatric shows him to be awake and alert, oriented times three with appropriate mood and affect and conversational. His white count today is 11.9 with a hemoglobin and hematocrit of 10.9 and 33.6, essentially unchanged from yesterday with a platelet count of 236 and stable. Differential shows 72% neutrophils, 14% lymphocytes, 7% monocytes. There are no immature forms. No toxic granulations. Chemistries today again show normal electrolytes except for a marginally high total CO2 of 35, most likely secondary to Lasix diuresis. BUN and creatinine are 19 and 1.12 with a glucose of 116 and a calcium of 8.4. His chest x-ray today shows the lung fully expanded to the chest wall except for a 1 cm apical air space. Costophrenic angles are sharp. There is subcutaneous emphysema along the lateral chest wall and at the base of the neck. IMPRESSION: 1. Postoperative day #7 status post right upper and middle bilobectomy. 2. Stage IIIA adenocarcinoma with microscopic nests of malignant cells in the azygos node. 3. Chronic obstructive pulmonary disease. 4. Hypertension. 5. Alveolar pleural fistula. PLAN AND DISCUSSION: His air leak is so small that I am loath to undertake a blood patch at this point in time. I will continue to observe him over the next few days. We will hopefully wean his epidural as noted above. MTDD
[2018-11-02 20:00] VITALS: BP 135/77
[2018-11-02] MEDS: NORCO, ANEXSIA 5/325MG TABLET (HYDROcodone/ACETAMINOPHEN) PO PRN (20:48)
[2018-11-02 23:59] VITALS: BP 125/67
[2018-11-03] MEDS: PERCOCET 5MG/325MG TAB PO PRN ×6 (00:35→22:18)
[2018-11-03] MEDS: LEVALBUTEROL 1.25 MG/0.5 ML CONCENTRATE NEB NEB SCH ×4 (01:44→19:58)
[2018-11-03 04:00] VITALS: BP 146/91
[2018-11-03] MEDS: FENTANYL/BUPIVACAINE/NACL BAG 250 ML EPIDURAL SCH (04:10)
[2018-11-03] MEDS: SLF 3 ML SYR IV SCH ×3 (05:21→21:22)
[2018-11-03] MEDS: HEPARIN SOD (PORCINE) 5000 UNITS/ML VIAL SC SCH ×2 (07:29→21:00)
--- NOTE | 2018-11-03 07:59 | REP ---
PA and lateral chest, 07:45 a.m.: Comparison is 11/02/2018. The two right thoracotomy tubes are unchanged. A small right apical pneumothorax is unchanged. The subcutaneous emphysema along the right lateral chest wall is unchanged. The pleural thickening along the right lateral chest wall is unchanged. There hemidiaphragm is elevated, unchanged. Left lung is clear. Cardiac size is normal. The epidural catheter is unchanged. Impression: There is no interval change. Electronically Signed by Bebo Cota MD 11/03/2018 07:50 A
[2018-11-03 08:00] VITALS: BP 139/69
[2018-11-03] MEDS: hydroCHLOROthiazide 12.5 MG CAPSULE PO SCH (08:33)
[2018-11-03] MEDS: PANTOPRAZOLE 40MG TAB (PROTONIX) PO SCH (08:33)
[2018-11-03] MEDS: LISINOPRIL 10 MG TAB PO SCH (08:33)
[2018-11-03] MEDS: DOCUSATE SODIUM 100 MG CAP PO SCH ×2 (08:33→20:23)
[2018-11-03] MEDS: MOM 30ML SUSPENSION UDC PO SCH (09:00)
[2018-11-03] MEDS ORDERED: LIDOCAINE 1% MDV 20ML VIAL As Ordered ONE (11:52)
[2018-11-03 12:00] VITALS: BP 159/98
--- NOTE | 2018-11-03 13:12 | REP ---
Portable chest x-ray: Single view. 12:17 p.m. film. History: Chest tube. Comparison chest x-ray: 07:45 a.m. film. November 03, 2018. Findings: Two right-sided chest tubes are again noted. A small right apical pneumothorax is seen. There is moderate amount of extrathoracic soft tissue emphysema along the right chest extending into the right neck as before. Some pleural thickening is noted laterally in the right chest. Right hemidiaphragm is again noted to be elevated. A right subclavian [id number] catheter is visible today with its tip in the expected location of the superior vena cava. EKG electrodes are seen. The left lung is clear. Impression: Small right-sided pneumothorax unchanged. Right subclavian [id number] catheter in place. Electronically Signed by Justin Orosco MD 11/03/2018 01:29 P
--- NOTE | 2018-11-03 13:54 | IPN ---
DATE: 11/03/2018 This is the 8th postoperative day for Mr. Mcdonnell. He still continues to leak. I am therefore going to perform a blood patch. His epidural was weaned yesterday. He is now on oral pain medications and his pain is being fairly well controlled. Certainly it is not as good as it was with the epidural, but it does allow him to take deep breaths and cough. His vital signs show a maximum temperature (Tmax) of 97.5 with a heart rate that ranges between 92-108 in a is sinus rhythm, respiratory rate of 18-17 without the use of accessory muscles, who is 95% saturated on room air and whose blood pressure is ranging between 146/91-139/69. His intake and output for the past 24 hours has been recorded as 1140 in and 1960 out for a negativity of 820 mL. He has put out 90 mL from the chest tube and there is still an air leak. Weight today is 103.7 kg, slightly up from 103.4 kg yesterday. On physical examination, he has equal breath sounds on either side. I still hear rales and squeaks on the right side referable to his air leak. Percussion note is full to the diaphragm. Cardiac exam is without murmurs, clicks, gallops or rubs. I cannot feel his point of maximum impulse (PMI). S1, S2 are normal. Abdomen is soft, nontender. Bowel sounds are positive. There is no hepatomegaly. No costovertebral angle (CVA) tenderness. Extremities show no pretibial edema. No calf tenderness. No differential swelling of the upper extremities. Skin is warm, dry, and perfused without cyanosis or mottling, including that of the nail beds and the knees. Neck is supple. There is no jugular venous distention. No subcutaneous emphysema. Trachea is midline. Mouth shows the mucous membranes to be pink and moist. Lips and commissures without lesions. There is no thrush. Eyes show his pupils to be equal and reactive. Extraocular motions intact. Sclerae anicteric. Neurologic shows II-XII intact along with gross motor and gross sensation intact. Gait is not tested. Psychiatric shows him to be awake and alert, oriented times three with appropriate mood and affect and conversational. His white count is 11.9 with a hemoglobin and hematocrit of 10.9 and 33.6. This is essentially unchanged from yesterday. Platelet count is 236 and differential shows 72% neutrophils, 14% lymphocytes, 7% monocytes. There are no immature forms. No toxic granulations. Electrolytes are normal again with a marginally high total CO2 of 35 secondary to Lasix diuresis. BUN and creatinine are 19 and 1.12 with a glucose of 116 and a calcium of 8.4. His chest x-ray still shows the subcutaneous emphysema. It is essentially unchanged from yesterday. He has a small apical air space in the cupula of the right chest. Costophrenic angles are sharp. There is alveolar volume loss from the bilobectomy. IMPRESSION: 1. Postoperative day #8 status post right upper and middle bilobectomy. 2. 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 3. Chronic obstructive pulmonary disease (COPD). 4. Hypertension. 5. Alveolar pleural fistula. PLAN AND DISCUSSION: As noted above in the introduction, I will undertake a blood patch today. We will place a central line in order to withdraw the blood. The leak is larger than yesterday's.
[2018-11-03] MEDS ORDERED: LIDOCAINE 1% MDV 20ML VIAL SC ONE (14:00)
[2018-11-03 16:00] VITALS: BP 132/83
[2018-11-03] MEDS ORDERED: SODIUM CHLORIDE 0.9% INJ 10 ML SYR IV PRN (17:00)
[2018-11-03 20:00] VITALS: BP 141/65
[2018-11-03] MEDS: SODIUM CHLORIDE 0.9% INJ 10 ML SYR IV SCH (21:22)
[2018-11-03 23:59] VITALS: BP 130/65
[2018-11-04] MEDS: PERCOCET 5MG/325MG TAB PO PRN ×5 (02:35→21:06)
[2018-11-04 04:00] VITALS: BP 129/69
[2018-11-04] MEDS: SODIUM CHLORIDE 0.9% INJ 10 ML SYR IV SCH ×3 (06:34→21:13)
[2018-11-04] MEDS: SLF 3 ML SYR IV SCH ×3 (06:34→21:07)
[2018-11-04] MEDS: LEVALBUTEROL 1.25 MG/0.5 ML CONCENTRATE NEB NEB SCH ×3 (07:47→21:09)
[2018-11-04 08:00] VITALS: BP 143/87
[2018-11-04] MEDS: hydroCHLOROthiazide 12.5 MG CAPSULE PO SCH (08:21)
[2018-11-04] MEDS: PANTOPRAZOLE 40MG TAB (PROTONIX) PO SCH (08:22)
[2018-11-04] MEDS: DOCUSATE SODIUM 100 MG CAP PO SCH ×2 (08:22→21:05)
[2018-11-04] MEDS: MOM 30ML SUSPENSION UDC PO SCH (08:22)
[2018-11-04] MEDS: LISINOPRIL 10 MG TAB PO SCH (08:22)
[2018-11-04] MEDS: HEPARIN SOD (PORCINE) 5000 UNITS/ML VIAL SC SCH ×3 (08:23→21:06)
[2018-11-04 08:44] LABS: BASO # 0.1 10^3/uL (0.0-0.2); BASO % 0.4 % (0.0-1.0); EOS # 0.4 10^3/uL (0.0-0.50); EOS % 2.9 % (0.0-3.0); HEMATOCRIT 36.1 % (42.0-52.0); LYMPH # 1.4 10^3/uL (1.5-4.5); LYMPH % 10.1 % (24.0-44.0); MEAN CORPUSCULAR HEMOGLOBIN 28.5 pg (27.0-33.0); MEAN CORPUSCULAR HGB CONC 33.2 g/dl (32.0-36.5); MEAN CORPUSCULAR VOLUME 85.7 fl (80.0-96.0); MONO # 0.8 10^3/uL (0.0-0.8); MONO % 5.9 % (0.0-5.0); NEUTROPHILS # 11.4 10^3/uL (1.8-7.7); NEUTROPHILS % 79.3 % (36.0-66.0); PLATELET COUNT, AUTOMATED 362 10^3/uL (150-450); RED BLOOD COUNT 4.21 10^6/uL (4.30-6.10); WHITE BLOOD COUNT 14.3 10^3/uL (4.0-10.0)
[2018-11-04 08:59] LABS: BLOOD UREA NITROGEN 11 MG/DL (7-18); CALCIUM LEVEL 8.6 MG/DL (8.8-10.2); CARBON DIOXIDE LEVEL 34 MEQ/L (21-32); CHLORIDE LEVEL 96 MEQ/L (98-107); CREATININE FOR GFR 1.03 MG/DL (0.70-1.30); GLOMERULAR FILTRATION RATE > 60.0 (>49); GLUCOSE, FASTING 129 MG/DL (70-100); POTASSIUM SERUM 3.7 MEQ/L (3.5-5.1); SODIUM LEVEL 134 MEQ/L (136-145)
[2018-11-04 12:00] VITALS: BP 141/76
[2018-11-04 16:00] VITALS: BP 128/71
[2018-11-04 20:00] VITALS: BP 136/77
[2018-11-04 23:59] VITALS: BP 137/67
[2018-11-05] MEDS: PERCOCET 5MG/325MG TAB PO PRN ×5 (02:19→20:08)
[2018-11-05] MEDS: LEVALBUTEROL 1.25 MG/0.5 ML CONCENTRATE NEB NEB SCH ×4 (02:22→20:28)
[2018-11-05 04:00] VITALS: BP 144/82
[2018-11-05] MEDS: SLF 3 ML SYR IV SCH ×3 (05:14→22:32)
[2018-11-05] MEDS: SODIUM CHLORIDE 0.9% INJ 10 ML SYR IV SCH ×3 (05:14→22:32)
[2018-11-05 05:26] LABS: BASO # 0.1 10^3/uL (0.0-0.2); BASO % 0.4 % (0.0-1.0); EOS # 0.4 10^3/uL (0.0-0.50); HEMATOCRIT 33.2 % (42.0-52.0); HEMOGLOBIN 10.8 g/dl (13.5-17.5); LYMPH # 2.2 10^3/uL (1.5-4.5); LYMPH % 16.2 % (24.0-44.0); MEAN CORPUSCULAR HEMOGLOBIN 27.4 pg (27.0-33.0); MEAN CORPUSCULAR HGB CONC 32.5 g/dl (32.0-36.5); MEAN CORPUSCULAR VOLUME 84.3 fl (80.0-96.0); MONO # 0.8 10^3/uL (0.0-0.8); MONO % 5.8 % (0.0-5.0); NEUTROPHILS # 9.7 10^3/uL (1.8-7.7); NEUTROPHILS % 73.1 % (36.0-66.0); PLATELET COUNT, AUTOMATED 355 10^3/uL (150-450); RED BLOOD COUNT 3.94 10^6/uL (4.30-6.10); WHITE BLOOD COUNT 13.3 10^3/uL (4.0-10.0)
[2018-11-05 05:47] LABS: BLOOD UREA NITROGEN 14 MG/DL (7-18); CALCIUM LEVEL 8.6 MG/DL (8.8-10.2); CARBON DIOXIDE LEVEL 33 MEQ/L (21-32); CHLORIDE LEVEL 98 MEQ/L (98-107); CREATININE FOR GFR 1.07 MG/DL (0.70-1.30); GLOMERULAR FILTRATION RATE > 60.0 (>49); GLUCOSE, FASTING 124 MG/DL (70-100); POTASSIUM SERUM 3.8 MEQ/L (3.5-5.1); SODIUM LEVEL 135 MEQ/L (136-145)
--- NOTE | 2018-11-05 07:33 | REP ---
CHEST, TWO VIEWS: Two views of the chest are performed and compared to a prior study 11/03/2018. Two right chest tubes remain in place. There is a tiny right apical pneumothorax. There is elevation of the right hemidiaphragm. Mild atelectatic changes are seen inferiorly on the right. Left lung is well aerated. Cardiomediastinal silhouette is unchanged. Electronically Signed by Bebo Daily MD 11/05/2018 10:24 P
[2018-11-05 08:00] VITALS: BP 125/71
[2018-11-05] MEDS: HEPARIN SOD (PORCINE) 5000 UNITS/ML VIAL SC SCH ×2 (08:30→20:30)
[2018-11-05] MEDS: LISINOPRIL 10 MG TAB PO SCH (08:32)
[2018-11-05] MEDS: hydroCHLOROthiazide 12.5 MG CAPSULE PO SCH (08:33)
[2018-11-05] MEDS: PANTOPRAZOLE 40MG TAB (PROTONIX) PO SCH (08:33)
[2018-11-05] MEDS: MOM 30ML SUSPENSION UDC PO SCH (08:33)
[2018-11-05] MEDS: DOCUSATE SODIUM 100 MG CAP PO SCH ×2 (08:33→20:08)
[2018-11-05 12:00] VITALS: BP 134/79
[2018-11-05 16:00] VITALS: BP 146/83
[2018-11-05 20:00] VITALS: BP 134/82
[2018-11-06] VITALS (7 sets, daily range): BP systolic 120–157; BP diastolic 66–89
[2018-11-06] MEDS: PERCOCET 5MG/325MG TAB PO PRN ×3 (01:37→22:10)
[2018-11-06] MEDS: LEVALBUTEROL 1.25 MG/0.5 ML CONCENTRATE NEB NEB SCH ×4 (02:26→20:14)
[2018-11-06] MEDS: SLF 3 ML SYR IV SCH ×3 (05:17→21:10)
[2018-11-06] MEDS: SODIUM CHLORIDE 0.9% INJ 10 ML SYR IV SCH ×3 (05:17→21:10)
[2018-11-06 06:12] LABS: BASO # 0.1 10^3/uL (0.0-0.2); BASO % 0.3 % (0.0-1.0); EOS # 0.4 10^3/uL (0.0-0.50); EOS % 2.7 % (0.0-3.0); HEMATOCRIT 33.4 % (42.0-52.0); HEMOGLOBIN 10.6 g/dl (13.5-17.5); LYMPH # 1.9 10^3/uL (1.5-4.5); LYMPH % 13.1 % (24.0-44.0); MEAN CORPUSCULAR HEMOGLOBIN 27.1 pg (27.0-33.0); MEAN CORPUSCULAR HGB CONC 31.7 g/dl (32.0-36.5); MEAN CORPUSCULAR VOLUME 85.4 fl (80.0-96.0); MONO # 0.8 10^3/uL (0.0-0.8); MONO % 5.1 % (0.0-5.0); NEUTROPHILS # 11.3 10^3/uL (1.8-7.7); NEUTROPHILS % 76.8 % (36.0-66.0); PLATELET COUNT, AUTOMATED 362 10^3/uL (150-450); RED BLOOD COUNT 3.91 10^6/uL (4.30-6.10); WHITE BLOOD COUNT 14.7 10^3/uL (4.0-10.0)
--- NOTE | 2018-11-06 06:27 | IPN ---
DATE: 11/05/2018 This is now the 9th postoperative day for Mr. Mcdonnell. He underwent a blood patch two days ago and today he has just a one bubble air leak with forceful coughing. His chest x-ray is also improved with regard to the subcutaneous emphysema which is dissipating. His pain is doing well on oral pain medications at a 3-4 level. His vital signs show a maximum temperature (Tmax) of 97.9 with a heart rate that ranges between 97-101n in a is sinus rhythm, a respiratory rate of 18-20 without the use of accessory muscles, who is 94% saturated on room air and whose blood pressure is ranging between 144/82 to 125/71. His intake and output for the past 24 hours has been recorded as 1389 in and 1725 out for a negativity of 335 mL. He has put 125 mL out the chest tube. He weighed 101.2 kg compared to 102.2 kg yesterday. On physical examination, his lungs show the crackles of subcutaneous emphysema over the posterior chest wall. Underneath there are normal vesicular sounds without wheezes, rhonchi or rales. Percussion note is full to he diaphragm. Cardiac exam is without murmurs, clicks, gallops or rubs. I cannot feel his point of maximum impulse (PMI). S1, S2 are normal. Abdomen is soft, nontender. Bowel sounds are positive. There is no hepatomegaly. No costovertebral angle (CVA) tenderness. Extremities show no pretibial edema. No calf tenderness. No differential swelling of the upper extremities. Skin is warm, dry, and perfused without cyanosis or mottling, including that of the nail beds and the knees. Neck is supple. There is no jugular venous distention. No subcutaneous emphysema. Trachea is midline. Mouth shows the mucous membranes to be pink and moist. Lips and commissures without lesions. There is no thrush. Eyes show his pupils to be equal and reactive. Extraocular motions intact. Sclerae anicteric. Neurologic shows II-XII intact along with gross motor and gross sensation intact. Gait is not tested. Psychiatric shows him to be awake and alert, oriented times three with appropriate mood and affect and conversational. His white count is down to 13.3 from 14.3 yesterday. Hemoglobin and hematocrit are 10.8 and 33.2, down from 12.0 and 36.1. It is the same as the value on 11/01/2018. Platelet count is 355 and stable and differential shows 73% neutrophils, 16% lymphocytes, 5% monocytes. There are no immature forms and no toxic granulations. His electrolytes are normal with a BUN and creatinine of 14 and 1.07, a glucose of 124 and a calcium of 8.6. His chest x-ray shows an apical air space filled and outlined with fluid opacity from the blood patch. The subcutaneous emphysema looks to be more dissipated. The costophrenic angle is sharp. There is obligate volume loss from the bilobectomy. The chest tubes are in good place. IMPRESSION: 1. Postoperative day #9 status post right middle and right upper bilobectomy. 2. Alveolar pleural fistula, hopefully resolving. 3. 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 4. Chronic obstructive pulmonary disease (COPD). 5. Hypertension. PLAN AND DISCUSSION: He is now off suction and I will leave him as such. I will not do a blood patch as he only has a one bubble air leak with forceful coughing. Most likely tomorrow if there is no air leak I will clamp the chest tube and make sure the lung stays up and if so will discontinue the chest tube a day after clamping it.
[2018-11-06 06:38] LABS: BLOOD UREA NITROGEN 16 MG/DL (7-18); CALCIUM LEVEL 8.5 MG/DL (8.8-10.2); CARBON DIOXIDE LEVEL 32 MEQ/L (21-32); CHLORIDE LEVEL 102 MEQ/L (98-107); CREATININE FOR GFR 1.12 MG/DL (0.70-1.30); GLOMERULAR FILTRATION RATE > 60.0 (>49); GLUCOSE, FASTING 165 MG/DL (70-100); POTASSIUM SERUM 3.7 MEQ/L (3.5-5.1); SODIUM LEVEL 138 MEQ/L (136-145)
--- NOTE | 2018-11-06 08:26 | IPN ---
DATE: 11/04/2018 This is now the 8th postoperative day for Mr. Mcdonnell. He underwent a blood patch yesterday. Today, when he is talking, he is not leaking; however, when he gives me a cough, he expels a large amount of air. When he starts back to talking, there is no active leak. His vital signs show a maximum temperature (Tmax) of 97.7 with a heart rate that ranges between 101 and 89 in sinus rhythm, respiratory rate 18-20 without the use of accessory muscles, who is 92-95% saturated on room air, and his blood pressure is ranging between 129/69 to 143/87. His intake and output over the past 24 hours has been recorded as 200 in and 1020 out for a negativity of 820 mL. He has put 100 mL out the chest tube. His weight today is 102.2 kg, compared to 103.7 kg yesterday. On physical examination, he has equal breath sounds on either side. position coarse rhonchi, most of which clear with coughing on the right side. Percussion note is full to the diaphragm. Cardiac exam is without murmurs, clicks, gallops, or rubs. I cannot feel his point of maximal impulse (PMI). S1 and S2 are normal. Abdomen was soft and nontender. Bowel sounds were positive. There was no hepatomegaly. No costovertebral angle (CVA) tenderness. Extremities show no pretibial edema and no calf tenderness. There is no differential swelling of the upper extremities. Skin is warm, dry, and perfused without cyanosis or mottling, including that of the nail beds and knees. Neck is supple. There is no jugular venous distention. He has subcutaneous emphysema at the root of the right neck. Trachea is midline. Mouth shows his mucous membranes to be pink and moist. Lips and commissures without lesions. There is no thrush. Eyes show his pupils to be equal and reactive. Extraocular motions are intact. Sclerae nonicteric. Neurologic shows II-XII intact along with gross motor and gross sensation intact. Gait is not tested. Psychiatric shows him to be awake and alert, oriented times three with appropriate mood and affect, and conversational. His white count today is up to 14.3 from 11.9 yesterday. I suspect this is secondary to the inflammatory response of the blood patch. Hemoglobin and hematocrit are 12.0 and 36.1, respectively, up from 10.9 and 33.6 secondary to hemoconcentration. Platelet count is 362 and stable, and differential shows 79% neutrophils, 10% lymphocytes, 5% monocytes. There are no immature forms or toxic granulations. Sodium is marginally low at 134. BUN and creatinine are 11 and 1.03 with a glucose of 129 and a calcium of 8.6. His chest x-ray shows the same apical airspace partially filled with fluid, which is no doubt blood from the blood patch. His subcutaneous emphysema may be a bit better and more dissipated. Right costophrenic angle is sharp. Chest tubes are in good place, although the anterior chest tube is a little bit more inferior than I would want it. IMPRESSION: 1. Postoperative day #8 status post right upper and middle bi-lobectomies. 2. Stage IIIA adenocarcinoma with microscopic nests of malignant cells in the azygos node. 3. Chronic obstructive pulmonary disease (COPD). 4. Hypertension. 5. Alveolar pleural fistula. PLAN AND DISCUSSION: I will keep him off suction today. I do not see a continuous air leak off suction and only when he coughs. If he has the air leak tomorrow, I will do yet another blood patch.
--- NOTE | 2018-11-06 08:42 | REP ---
PA and lateral chest: Comparison is 11/05/2018. The two right thoracotomy tubes are unchanged. The right apical pneumothorax is unchanged. The subcutaneous emphysema along the right lateral chest wall is unchanged. The elevation of the right hemidiaphragm is unchanged. Left lung is clear. Cardiac size is normal. This is unchanged. The The left subclavian central venous catheter with the tip in the right atrium is unchanged. Impression: There is no interval change. Electronically Signed by Bebo Cota MD 11/06/2018 08:34 A
[2018-11-06] MEDS: hydroCHLOROthiazide 12.5 MG CAPSULE PO SCH (09:00)
[2018-11-06] MEDS: MOM 30ML SUSPENSION UDC PO SCH (09:07)
[2018-11-06] MEDS: LISINOPRIL 10 MG TAB PO SCH (09:07)
[2018-11-06] MEDS: DOCUSATE SODIUM 100 MG CAP PO SCH ×2 (09:07→21:10)
[2018-11-06] MEDS: HEPARIN SOD (PORCINE) 5000 UNITS/ML VIAL SC SCH ×2 (09:07→21:10)
[2018-11-06] MEDS: PANTOPRAZOLE 40MG TAB (PROTONIX) PO SCH (09:09)
--- NOTE | 2018-11-06 09:50 | REP ---
CHEST, TWO VIEWS: COMPARISON: 10/2018. Two views of the chest are performed. Small right apical pneumothorax is stable. Two right chest tubes are in place. There is air in the soft tissues of the right chest wall unchanged. Mild diffuse pleural opacity on the right and mild linear opacities in the right lung base are stable. There is mild discoid atelectasis in the left base. Cardiomediastinal silhouette is unchanged. Electronically Signed by Bebo Daily MD 11/07/2018 01:23 P
--- NOTE | 2018-11-06 14:01 | RO ---
DATE OF PROCEDURE: 11/03/2018 PREPROCEDURE DIAGNOSIS: Continued alveolar pleural fistula, need for vascular access for blood patch. POSTPROCEDURE DIAGNOSIS: Continued alveolar pleural fistula, need for vascular access for blood patch. PROCEDURE: Insertion of right subclavian central line SURGEON: Dr. Angel Lowery DRIER FEEDER: ANESTHESIA: DESCRIPTION OF PROCEDURE: Patient was prepped and draped in the usual sterile fashion and placed into the Trendelenburg position. The right infraclavicular fossa was infiltrated with 1% lidocaine. The vein was found on the fourth pass. A wire was placed with production of PVCs. The tract was dilated and a triple lumen catheter was placed by Seldinger technique. The ports were aspirated and flushed without difficulty and the catheter was secured to the chest wall with two #3-0 silk sutures. The patient tolerated the procedure well and a chest x-ray is pending.
--- NOTE | 2018-11-06 14:05 | RO ---
DATE OF PROCEDURE: 11/03/2018 PREPROCEDURE DIAGNOSIS: Alveolar pleural fistula, continuing. POSTPROCEDURE DIAGNOSIS: Alveolar pleural fistula, continuing. PROCEDURE: Right pleural blood patch. SURGEON: Dr. Angel Lowery IPHONE DEVELOPER: ANESTHESIA: DESCRIPTION OF PROCEDURE: The patient was placed in Trendelenburg and 120 mL of blood was withdrawn from the previously placed central line. This was infused into the anterior chest tube. The patient was placed in Trendelenburg position in order for the blood to collect at the cupula of the lung where I suspect the air leak is occurring. The chest tube was clamped and will be unclamped in 4 hours. The patient will be kept in Trendelenburg for half an hour. The patient tolerated the procedure well.
[2018-11-06] MEDS: NORCO, ANEXSIA 5/325MG TABLET (HYDROcodone/ACETAMINOPHEN) PO PRN (17:52)
[2018-11-07] MEDS: LEVALBUTEROL 1.25 MG/0.5 ML CONCENTRATE NEB NEB SCH ×5 (00:54→19:30)
[2018-11-07 04:00] VITALS: BP 128/70
[2018-11-07] MEDS: SLF 3 ML SYR IV SCH ×3 (05:07→21:09)
[2018-11-07] MEDS: SODIUM CHLORIDE 0.9% INJ 10 ML SYR IV SCH ×3 (05:08→21:09)
[2018-11-07 05:29] LABS: BASO # 0.1 10^3/uL (0.0-0.2); BASO % 0.5 % (0.0-1.0); EOS # 0.5 10^3/uL (0.0-0.50); EOS % 3.2 % (0.0-3.0); HEMATOCRIT 33.6 % (42.0-52.0); HEMOGLOBIN 10.7 g/dl (13.5-17.5); LYMPH # 2.1 10^3/uL (1.5-4.5); MEAN CORPUSCULAR HEMOGLOBIN 27.9 pg (27.0-33.0); MEAN CORPUSCULAR HGB CONC 31.8 g/dl (32.0-36.5); MEAN CORPUSCULAR VOLUME 87.7 fl (80.0-96.0); MONO # 0.6 10^3/uL (0.0-0.8); MONO % 4.3 % (0.0-5.0); NEUTROPHILS # 10.5 10^3/uL (1.8-7.7); NEUTROPHILS % 75.1 % (36.0-66.0); PLATELET COUNT, AUTOMATED 363 10^3/uL (150-450); RED BLOOD COUNT 3.83 10^6/uL (4.30-6.10)
[2018-11-07 06:24] LABS: BLOOD UREA NITROGEN 16 MG/DL (7-18); CALCIUM LEVEL 8.5 MG/DL (8.8-10.2); CARBON DIOXIDE LEVEL 31 MEQ/L (21-32); CHLORIDE LEVEL 105 MEQ/L (98-107); CREATININE FOR GFR 1.01 MG/DL (0.70-1.30); GLOMERULAR FILTRATION RATE > 60.0 (>49); GLUCOSE, FASTING 118 MG/DL (70-100); POTASSIUM SERUM 4.4 MEQ/L (3.5-5.1); SODIUM LEVEL 141 MEQ/L (136-145)
[2018-11-07 08:00] VITALS: BP 143/91
[2018-11-07] MEDS: MOM 30ML SUSPENSION UDC PO SCH (08:19)
[2018-11-07] MEDS: DOCUSATE SODIUM 100 MG CAP PO SCH ×2 (08:20→21:08)
[2018-11-07] MEDS: HEPARIN SOD (PORCINE) 5000 UNITS/ML VIAL SC SCH ×2 (08:20→21:08)
[2018-11-07] MEDS: PANTOPRAZOLE 40MG TAB (PROTONIX) PO SCH (08:20)
[2018-11-07] MEDS: hydroCHLOROthiazide 12.5 MG CAPSULE PO SCH (08:20)
[2018-11-07] MEDS: LISINOPRIL 10 MG TAB PO SCH (08:20)
--- NOTE | 2018-11-07 09:36 | REP ---
PA and lateral chest: Comparison is 11/06/2018. There is a right apical pneumothorax, unchanged. The two right chest tubes are unchanged. The subcutaneous emphysema along the right lateral chest wall is unchanged. The right subclavian central venous catheter is unchanged. Pleural thickening along the right lateral chest wall is unchanged. Left lung is clear. Cardiac size is normal. Impression: No interval change. Electronically Signed by Bebo Cota MD 11/07/2018 09:27 A
--- NOTE | 2018-11-07 10:43 | IPN ---
DATE: 11/06/2018 This is now the 11th postoperative day for Mr. Mcdonnell. He is breathing well and his pain is being well controlled. He still has a one bubble air leak with very forceful coughing. When he is speaking there is no air leak. His subcutaneous emphysema at the base of his neck is no worse. His vital signs show a T-max of 99.5 with a heart rate that ranges between 65 and 125 and is sinus rhythm, with one run of atrial tachycardia. Respiratory rate is 16-22 without the use of accessory muscles, and he is 93-97% saturated on room air. Blood pressure is ranging between 157/89 to 120/67. His intake and output the past 24 hours has been recorded as only 200 in and 415 out, for a negativity of 215 mL. He has put 65 mL out the chest tube. He weighs 102.6 kg compared to 101.2 kg yesterday. I suspect the intake and output are not accurate. On physical examination, I hear the crackles of subcutaneous emphysema on the right side. Underneath he has normal vesicular sounds. I hear no other wheezes, rhonchi or rales. Percussion notes are full to he diaphragm. Cardiac exam is without murmurs, clicks, gallops or rubs. I cannot feel his point of maximum impulse (PMI). S1, S2 are normal. Abdomen is soft, nontender. Bowel sounds are positive. There is no hepatomegaly. No costovertebral angle (CVA) tenderness. Extremities show no pretibial edema. No calf tenderness. No differential swelling of the upper extremities. Skin is warm, dry, and perfused without cyanosis or mottling, including that of the nail beds and the knees. Neck is supple. There is no jugular venous distention. No subcutaneous emphysema. Trachea is midline. Mouth shows his mucous membranes to be pink and moist. Lips and commissures without lesions. There is no thrush. Eyes show his pupils to be equal and reactive. Extraocular motions intact. Sclerae nonicteric. Neurologic shows II-XII intact along with gross motor and gross sensation intact. Gait is not tested. Psychiatric shows him to be awake and alert, oriented times three with appropriate mood and affect and conversational. White count today is 14.7 up from 13.3 yesterday. Hemoglobin and hematocrit are 10.6 and 33.4, unchanged, with a platelet count of 362. Differential shows 76% neutrophils, 13% lymphocytes, 5% monocytes. There are no immature forms and no toxic granulations. His electrolytes are normal with a BUN and creatinine of 16 and 1.12. Glucose is 165 with a calcium of 8.5. His chest x-ray shows an apical air space in the cupula of the right hemithorax. The subcutaneous emphysema may be a bit better, but only marginally so. Costophrenic angle is sharp. The air space is almost filled completely with now fluid. Chest tubes are in good place. There is no anterior pneumothorax. IMPRESSION: 1. Postoperative day 11 status post right upper and middle lobe bilobectomy. 2. Stage IIIA adenocarcinoma with microscopic nests of malignant cells in the azygos nodes. 3. Chronic obstructive pulmonary disease (COPD). 4. Hypertension. 5. Alveolar pleural fistula. PLAN AND DISCUSSION: Today I am going to clamp his chest tubes. We will check a chest x-ray tomorrow. I have made sure that the nursing staff has appreciated his subcutaneous emphysema at the base of the neck. If it increases I will get a chest x-ray and reevaluate. Edited 11/07/2018 @ 1057 [facility]
--- NOTE | 2018-11-07 11:00 | IPN ---
DATE: 11/07/2018 This is now Mr. Mcdonnell's 12th postoperative day status post a right upper and middle lobe bilobectomy. His chest has been clamped for 24 hours. His chest x-ray shows no increase, in fact, probably a decrease in his subcutaneous emphysema. There are no complaints of shortness of breath and the subcutaneous emphysema at the base of the neck is better. I will therefore remove his chest tubes today. His vital signs show a T-max of 99.5 with a heart rate that ranges between 96 and 109 and is sinus rhythm, respiratory rate is 16-20 without the use of accessory muscles, who is 95% saturated on room air, and whose blood pressure is ranging between 128/70 to 143/91. His intake and output the past 24 hours has been recorded as 600 in and 1230 out, for a negativity of 630 mL. Before clamping the chest tubes yesterday, he put out 30 mL. His weight today is 102.3 kilos compared to 102.6 kilos yesterday. On physical examination, while I hear the sounds of subcutaneous emphysema in the right hemithorax, they are much decreased. Underneath, I heart normal vesicular sounds without wheezes, rhonchi or rales. Percussion notes are full to the diaphragm. Cardiac exam is without murmurs, clicks, gallops or rubs. I cannot feel his point of maximum impulse (PMI). S1 and S2 are normal. Abdomen is soft, nontender, slightly distended with bowel sounds positive. There is no hepatomegaly. No costovertebral angle (CVA) tenderness. Extremities show no pretibial edema. No calf tenderness. No differential swelling of the upper extremities. Skin is warm, dry, and perfused without cyanosis or mottling, including that of the nail beds and the knees. Neck is supple. There is no jugular venous distention. The subcutaneous emphysema at the base of the neck supraclavicularly is decreased. Trachea is midline. Mouth shows his mucous membranes to be pink and moist. Lips and commissures without lesions. There is no thrush. Eyes show his pupils to be equal and reactive. Extraocular motions intact. Sclerae nonicteric. Neurologic shows II-XII intact along with gross motor and gross sensation intact. Gait is also intact. Psychiatric shows him to be awake and alert, oriented times three with appropriate mood and affect and conversational. White count today is 14.0, slightly down from 14.7 yesterday. Hemoglobin and hematocrit are stable at 10.7 and 33.6 with a platelet count of 363 and stable. Differential shows 75% neutrophils, 15% lymphocytes, 4% monocytes. There are no immature forms and no toxic granulations. His electrolytes are normal with a BUN and creatinine of 16 and 1.01 with a glucose is 118 and a calcium of 8.5. His chest x-ray today is improved. The subcutaneous emphysema looks to be dissipating. The lung is fully expanded to the chest wall except for an apical space, which now looks to be fluid filled. Chest tubes are in satisfactory position. Lateral film shows no infiltrates. IMPRESSION: 1. Postoperative day 12 status post right upper and middle lobe bilobectomy. 2. Alveolar pleural fistula, resolved. 3. 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 4. Chronic obstructive pulmonary disease (COPD). 5. Hypertension. PLAN AND DISCUSSION: I will remove his chest tubes today. Even though the chest tube has been clamped for 24 hours, I will give him another 24 hours to make sure that all is well with regard to his air leak. I have given him permission to walk outside if he wishes. He has also been instructed not to lift anything heavy.
[2018-11-07 12:00] VITALS: BP 133/84
[2018-11-07] MEDS: PERCOCET 5MG/325MG TAB PO PRN ×2 (12:01→22:44)
[2018-11-07 16:00] VITALS: BP 131/77
[2018-11-07] MEDS: NORCO, ANEXSIA 5/325MG TABLET (HYDROcodone/ACETAMINOPHEN) PO PRN (18:07)
[2018-11-07 20:00] VITALS: BP 142/70
[2018-11-07 23:59] VITALS: BP 141/78
[2018-11-08] MEDS: LEVALBUTEROL 1.25 MG/0.5 ML CONCENTRATE NEB NEB SCH (01:19)
[2018-11-08] MEDS: SODIUM CHLORIDE 0.9% INJ 10 ML SYR IV SCH (05:01)
[2018-11-08] MEDS: SLF 3 ML SYR IV SCH (05:01)
[2018-11-08 06:22] LABS: BASO # 0.1 10^3/uL (0.0-0.2); BASO % 0.4 % (0.0-1.0); EOS # 0.6 10^3/uL (0.0-0.50); EOS % 3.5 % (0.0-3.0); HEMATOCRIT 33.1 % (42.0-52.0); HEMOGLOBIN 10.5 g/dl (13.5-17.5); LYMPH # 2.1 10^3/uL (1.5-4.5); MEAN CORPUSCULAR HEMOGLOBIN 27.1 pg (27.0-33.0); MEAN CORPUSCULAR HGB CONC 31.7 g/dl (32.0-36.5); MEAN CORPUSCULAR VOLUME 85.3 fl (80.0-96.0); MONO # 0.7 10^3/uL (0.0-0.8); MONO % 4.5 % (0.0-5.0); NEUTROPHILS # 12.1 10^3/uL (1.8-7.7); NEUTROPHILS % 76.4 % (36.0-66.0); PLATELET COUNT, AUTOMATED 390 10^3/uL (150-450); RED BLOOD COUNT 3.88 10^6/uL (4.30-6.10); WHITE BLOOD COUNT 15.8 10^3/uL (4.0-10.0)
[2018-11-08 06:56] LABS: BLOOD UREA NITROGEN 15 MG/DL (7-18); CALCIUM LEVEL 8.4 MG/DL (8.8-10.2); CARBON DIOXIDE LEVEL 30 MEQ/L (21-32); CHLORIDE LEVEL 104 MEQ/L (98-107); CREATININE FOR GFR 1.02 MG/DL (0.70-1.30); GLOMERULAR FILTRATION RATE > 60.0 (>49); GLUCOSE, FASTING 125 MG/DL (70-100); POTASSIUM SERUM 4.6 MEQ/L (3.5-5.1); SODIUM LEVEL 140 MEQ/L (136-145)
[2018-11-08] MEDS: LEVALBUTEROL 1.25 MG/0.5 ML CONCENTRATE NEB NEB PRN (07:37)
[2018-11-08 08:00] VITALS: BP 141/90
[2018-11-08] MEDS ORDERED: PERCOCET PO (08:06)
--- NOTE | 2018-11-08 08:27 | REP ---
Clinical: Right chest tube. Technique: PA and lateral. Comparison: 11/07/2018. Findings: Right chest tubes have been removed. Right-sided pleuroparenchymal changes including relatively circumferential pleural based opacity surrounding the visualized right hemithorax as well as elevation to the right hemidiaphragm and right basilar opacity is appreciated. Subcutaneous emphysema is also identified and these findings remain relatively stable/unchanged. Right subclavian central venous catheter extends into the SVC/right atrium. The cardiac silhouette is normal. The left hemithorax is clear. Skeletal structures remain unchanged. Impression: 1. Previous right-sided chest tubes have been removed. 2. No significant change in subcutaneous emphysema or pleural parenchymal changes involving the right hemithorax. 3. No obvious new acute process identified. Electronically Signed by Sesar Dorado MD 11/08/2018 08:20 A
[2018-11-08 08:38] VITALS: BP 143/91
[2018-11-08] MEDS: hydroCHLOROthiazide 12.5 MG CAPSULE PO SCH (08:38)
[2018-11-08] MEDS: MOM 30ML SUSPENSION UDC PO SCH (08:38)
[2018-11-08] MEDS: DOCUSATE SODIUM 100 MG CAP PO SCH (08:38)
[2018-11-08] MEDS: NORCO, ANEXSIA 5/325MG TABLET (HYDROcodone/ACETAMINOPHEN) PO PRN (08:38)
[2018-11-08] MEDS: PANTOPRAZOLE 40MG TAB (PROTONIX) PO SCH (08:38)
[2018-11-08] MEDS: LISINOPRIL 10 MG TAB PO SCH (08:38)
[2018-11-08] MEDS: HEPARIN SOD (PORCINE) 5000 UNITS/ML VIAL SC SCH (09:00)
--- NOTE | 2018-11-09 11:29 | DSES ---
DATE OF ADMISSION: 10/26/2018 DATE OF DISCHARGE: 11/08/2018 DISCHARGE DIAGNOSES: 1. 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 2. Chronic obstructive pulmonary disease (COPD). 3. Hypertension. 4. Alveolar pleural fistula. 5. Postoperative day #13, status post right upper and middle bilobectomy. HOSPITAL COURSE: The patient is a 63-year-old white male who developed a respiratory infection approximately a year ago. He had an x-ray performed, which showed a right side lung lesion. He only complained of shortness of breath with vigorous activity and with an intermittent cough. There was no chest pain, no chest discomfort, no fever, chills, or sweats, or weight loss. CT scan done in July of this year showed a left upper lesion which measured 2.2 in its greatest dimensions, and there was no mediastinal lymphadenopathy. There were no liver or adrenal lesions. Positron emission tomography (PET) scan showed hypermetabolic uptake in the right upper lobe lesion but none in the mediastinum or the adrenals. Pulmonary function tests (PFTs) showed an FEV1 of 2.68 which was 75% of predicted with a diffusing capacity of lung for carbon monoxide (DLCO) which is 112% of predicted. He underwent a CT-guided needle biopsy which showed a moderately differentiated adenocarcinoma. It was notable on his chest CT that there was an absence of a middle lobe fissure. He was, therefore, taken to the operating room on 10/26/2018 where he underwent a right upper and middle lobectomy and a complete mediastinal node dissection. The intent was to undertake the right upper lobectomy. However, once all the vasculature had been divided, as was the bronchus, the lung tissue thickness was such that it could not be stapled to create a fissure; and, therefore, it was decided to take the middle lobe along with it where he had a nearly-complete major fissure. He had a benign postoperative course except for a small air leak which persisted over the course of approximately 10 days. He underwent a blood patch pleurodesis after placement of a central line. The air leak did eventually stop, and the chest tube was removed. Pathological examination of the node dissection showed microscopic nest in the azygos node just above the pulmonary artery and under the azygos vein. He, therefore, went from a clinical stage I disease to stage IIIA disease and will be a candidate for adjuvant chemotherapy. He is being discharged on his home medications, which include ProAir two puffs four times a day as needed for shortness of breath, Flonase two sprays to each nares as needed congestion, lisinopril/hydrochlorothiazide combination of 10/12.5 mg every day, and multivitamins every day. He is also being placed on Percocet one every 4 hours as needed pain. His discharge white count is 15.8 with a hemoglobin and hematocrit of 10.5 and 33.1 with a platelet count of 390. His differential shows 76% neutrophils, 13% lymphocytes, and 4% monocytes. Chemistries show normal electrolytes with a BUN and creatinine of 15 and 1.02, glucose of 125, and a calcium of 8.4. His blood saturations are 95% and 97% on room air. He will return to see me in 1 week with a chest x-ray. I have asked him not to lift anything over 10 pounds but have encouraged him to be active. He may shower with his wounds and leave them open to air.
== END 2018-11-08 11:05 | disposition home or self-care (01) | DRG 163 ==
LOC: M OR 07:02 → M ICU 16:54 → M PCU 10-29 09:42
PROVIDERS: ADMIT Thoracic Surgery (Cardiothoracic Vascular Surgery); ATTEND Thoracic Surgery (Cardiothoracic Vascular Surgery)
PROC: 07B70ZX Excision of Thorax Lymphatic, Open Approach, Diagnostic (ICD-10-PCS; 2018-10-26)
PROC: 0BU Respiratory System, Supplement (ICD-10-PCS; 2018-10-26)
PROC: 0BTC0ZZ Resection of Right Upper Lung Lobe, Open Approach (ICD-10-PCS; principal; 2018-10-26 09:30)
PROC: 3E0S3GC Introduction of Other Therapeutic Substance into Epidural Space, Percutaneous Approach (ICD-10-PCS; 2018-11-03)
PROC: 05H533Z Insertion of Infusion Device into Right Subclavian Vein, Percutaneous Approach (ICD-10-PCS; 2018-11-03)
DX: C34.11 Malignant neoplasm of upper lobe, right bronchus or lung (principal); J86.0 Pyothorax with fistula; C77.1 Secondary and unspecified malignant neoplasm of intrathoracic lymph nodes; J44.9 Chronic obstructive pulmonary disease, unspecified; I10 Essential (primary) hypertension

== ENCOUNTER → 2018-11-16 | Outpatient (CLI) | payer OTHER ==
[~2018-11-16] MED LIST changes: +DEXA4TA PO; +LIDO2.5C15 TOP; -LR 1,000 ML IV ONE; -MUPIROCIN 2% OINT 22 GM TUBE TOP ONE; +ONDA8TAB8 PO; +PERCOCET PO
--- NOTE | 2018-11-16 09:42 | REP ---
Clinical: Postoperative evaluation. Technique: PA and lateral. Comparison: 11/08/2018. Findings: Postsurgical changes involving the right hemithorax are again noted. No new acute consolidation. A small residual right apical pneumothorax cannot be excluded. Moderate amount of subcutaneous emphysema along the right lateral chest wall and thoracic inlet has decreased. The left hemithorax is well-aerated and essentially clear. Cardiac silhouette is normal. Stable right rib fractures cannot be excluded. Impression: Relatively stable postsurgical changes involving the right hemithorax. Decreased subcutaneous emphysema. No new acute process appreciated. Electronically Signed by Sesar Dorado MD 11/16/2018 09:33 A
== END ==
LOC: M SMT 09:22
PROVIDERS: ATTEND Thoracic Surgery (Cardiothoracic Vascular Surgery)
DX: Z48.3 Aftercare following surgery for neoplasm (principal)

== ENCOUNTER → 2018-11-28 | Outpatient (CLI) | payer OTHER ==
[~2018-11-28] MED LIST changes: +BUPIVACAINE HCL 0.5% 10 ML VIAL As Ordered ONE; +LIDOCAINE 2% MDV 20 ML VIAL As Ordered ONE; +LISI10TA15 PO; -LISI10TA2 PO; +ceFAZolin 1GM INJ (J0690 PER 500MG) As Ordered ONE
--- NOTE | 2018-11-28 13:55 | ROOPDOC ---
[facility] Report Of Operation Report of Operation DATE OF PROCEDURE: 11/28/2018 PREOPERATIVE DIAGNOSIS: Small cell lung cancer. POSTOPERATIVE DIAGNOSIS: Small cell lung cancer. PROCEDURE: Ultrasound guided right internal jugular vein cannulation. Fluoroscopic guided right internal jugular vein tunneled central venous catheter with subcutaneous port placement with placement of a power injectable [employer] [place] Power Port with 21 centimeter length catheter. SURGEON: Dr. Jairo John M.D. PHARMACY SALESPERSON: Zulay Murry ANESTHESIA: Local with 20 mL of 2% lidocaine mixed with 0.5% Marcaine. SEDATION TIME: None. ANTIBIOTICS: Ancef 2 g FLUOROSCOPY TIME: 0.1 minutes. CONTRAST: None. ESTIMATED BLOOD LOSS: 15 mL. IV FLUID: 150 mL. COMPLICATIONS: None. DRAINS: None. SPECIMENS: None. IMPLANTS: Right internal jugular vein tunneled central venous catheter with subcutaneous port placement using a [employer] [place] Power Port which is power injectable. INDICATION: Patient is a 63-year-old male with lung cancer who requires central venous access for chemotherapy and blood draws. Patient will undergo a right tunneled central venous catheter placement with subcutaneous port. Procedure was described and explained to the patient in detail including drawing of pictures showing the procedure and anatomy associated with insertion of the tunneled central venous catheter was subcutaneous port. Risks, benefits, and alternative treatment options were discussed with the patient. Alternative treatment options included, but were not limited to, no intervention. Benefits included, but were not limited to, access for chemotherapy infusion centrally, avoiding recurrent venous cannulations , IV placements and sclerosis of peripheral veins. Risks included, but were not limited to, infection, bleeding, pneumothorax, hemothorax, possible need for further open surgical intervention, renal failure requiring hemodialysis, failure of the tunneled central venous catheter with subcutaneous port to function requiring evaluation, revision and/or replacement, adverse and/or allergic reaction to the sedation medications and/or local anesthetics, anesthetic and sedation complication, possible need for transfusion of blood products, allergic reaction and/or complication from the prepping and draping materials, bruising, scarring, cerebrovascular accident, myocardial infarction, pulmonary embolus, deep venous thrombosis, poor satisfaction, poor results, poor outcome, loss of limb and loss of life. Risks of not performing the port insertion included but were not limited to inability to gain access for chemotherapy, inability to gain access for blood draws and laboratory evaluation, sclerosis and thrombophlebitis of peripheral veins and pain associated with continued peripheral cannulations. Patient's questions were answered. Patient voices understanding of these risks, benefits, and alternative treatment options. Patient voices acceptance of the risks associated with placement of a central venous tunneled catheter with subcutaneous port placement and consents to proceed with tunneled central venous catheter with subcutaneous port placement. No guarantees or promises were made to the patient regarding the results or outcome of the procedure. DESCRIPTION OF PROCEDURE: Patient was taken to the angiography suite, placed supine on the angiography room table, and prepped and draped in a standard surgical fashion. A time-out was conducted by myself and the team members involved in the procedure, confirming the correct procedure, patient, and laterality. Ultrasound was then used to evaluate the right internal jugular vein, which was noted to be easily compressible, widely patent, and free of thrombus. Ultrasound was then used to guide cannulation of the right internal jugular vein with a micropuncture needle with real-time concurrent visualization of the entry of the needle into the right internal jugular vein with a hardcopy image preserved. The skin overlying the right internal jugular vein was anesthetized with 2% lidocaine mixed with 0.5% Marcaine prior to cannulation. Once the right internal jugular vein was cannulated, the micropuncture wire was advanced through the micropuncture needle, which was up-sized to a micropuncture sheath. A J wire was advanced through the micropuncture sheath. The right internal jugular vein was then dilated under fluoroscopic guidance, and a #8-Mosotho introducer sheath was positioned through the right internal jugular vein into the superior vena cava. The wire was removed, and the #8-Mosotho single lumen catheter, which had been tunneled from a puncture wound in the right chest and brought out at the puncture wound at the right internal jugular vein entry site, was advanced through the introducer sheath under fluoroscopic guidance. The introducer sheath was then removed, and the catheter was positioned with the tip in the superior vena cava/right atrial junction under fluoroscopic guidance. The catheter was cut to a length of 21 cm and attached to the port. A pocket was created in the right chest after anesthetizing the overlying tissue with 2% lidocaine mixed with 0.5% Marcaine. The port was placed in the pocket and cannulated using an access needle. The port was noted to aspirate and flush easily and then was flushed with heparinized saline. The incision in the chest was closed using # 4-0 Monocryl suture in inverted interrupted fashion. The puncture wound in the right neck was closed using a #4-0 Monocryl in inverted interrupted fashion. Steri-Strips and dressings were applied. Patient tolerated the procedure well. All instrument, sponge, and needle counts were correct at the end of the case. There were no complications. Dr. John was present for and directed the entire case. Patient was transferred to the recovery area and subsequently discharged in stable condition. The tunneled central venous catheter with subcutaneous port is stable for use for access. RADIOLOGIC SUPERVISION AND INTERPRETATION: The ultrasound showed the right internal jugular vein to be easily compressible, widely patent, and free of thrombus. Ultrasound was used to guide cannulation of the right internal jugul ar vein with real-time concurrent visualization of the entry of the needle into the right internal jugular vein. The right internal jugular vein was then dilated under fluoroscopic guidance with a #8-Mosotho introducer sheath placed under fluoroscopic guidance. The 8 Mosotho single lumen catheter was advanced through the introducer sheath positioned with the tip in the superior vena/right atrial junction using fluoroscopic guidance with final fluoroscopic image showing the catheter and port to be in good position and good alignment with the tip in the superior vena cava/right atrial junction with no pneumo- or hemothorax noted. The tunneled central venous catheter with subcutaneous port is stable for use. Juliano John MD Nov 28, 2018 13:55
[2018-11-28 14:00] VITALS: BP 132/62
== END | disposition home or self-care (01) ==
LOC: M IRPRO 11:50
PROVIDERS: ATTEND Internal Medicine Hematology & Oncology
DX: C34.90 Malignant neoplasm of unspecified part of unspecified bronchus or lung (principal); J44.9 Chronic obstructive pulmonary disease, unspecified

== ENCOUNTER → 2018-11-28 | Outpatient (CLI) | payer OTHER ==
[~2018-11-28] MED LIST changes: -BUPIVACAINE HCL 0.5% 10 ML VIAL As Ordered ONE; -LIDOCAINE 2% MDV 20 ML VIAL As Ordered ONE; -ceFAZolin 1GM INJ (J0690 PER 500MG) As Ordered ONE
--- NOTE | 2018-11-30 09:34 | RADONC ---
NEW PATIENT CONSULTATION: 11/28/2018 REFERRING PHYSICIAN: Dr. Rubi Selby CHART NUMBER: [id number] DIAGNOSIS: Adenocarcinoma right upper lobe. STAGE: III A, [id number]. ICD-10 code: 34.11. ECOG performance status zero. HISTORY OF PRESENT ILLNESS: This patient is a 63-year-old man who is referred by Dr. Rubi Selby for evaluation of local regional radiotherapy for his known adenocarcinoma of the lung. He had a chest x-ray after he had a persistent cough in July 2017. The cough did not subside which led to a chest x-ray which revealed a right-sided lung lesion. A biopsy was performed revealing adenocarcinoma and eventually a lobectomy was performed on 10/26/2018. The pathology was from a resection which Dr. Lowery had performed to remove the right upper and middle lobes as well as biopsy of the mediastinal and paratracheal lymph nodes. The right lung lesion measured 2 x 2 x 1.8 cm in greatest dimension and the tumor was located in the subpleural area and puckered the overlying pleura, however no invasion onto the overlying pleura was noted. Peribronchial lymph nodes and bronchial margins appeared free of malignancy. The azygos lymph node was biopsied and revealed metastatic adenocarcinoma, partially replacing the lymph node and the paratracheal lymph node biopsy was also positive in at least two of the middle lymph nodes located farthest from a stitch which was placed for orientation. A few clusters of malignant cells were also noted in the adherent blood clot associated with the lymph node. With these results, he was pathologically staged a T1b, N2, M0. Subsequently a PET scan was obtained which showed no evidence of metastatic disease. He saw Dr. Rubi Selby who felt that although he was clinically staged a 1A pathologically, he was most likely consistent with a stage III A. Dr. Selby felt that a multimodality approach should be considered. The patient has already had surgery and would need adjuvant radiotherapy and chemotherapy. The tumor was EGFR, ROS-1, ALK negative and PD-L1 1% expressed. She was going to consider weekly Taxol and carboplatin for 7 weeks with radiotherapy and then afterwards administer durvalumab which is to be given an IV every 2 weeks for approximately 1 year for maintenance. The patient is having a Port-A-Cath placed today and will initiate chemotherapy soon. She gave the patient dexamethasone to take prior to his chemotherapy. PAST MEDICAL HEALTH: Hypertension. History of ankle surgery. 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 He smokes one to two packs of cigarettes for 20-30 years but now does not smoke any longer. He claimed that his daily consumption of cigarettes however was probably only approximately six cigarettes because when he is on his job, he will smoke only a fraction of one cigarette and then put it out. Nonetheless, though it is documented his record that he has a one to two pack history of smoking for 20-30 years. FAMILY HISTORY: Cancer. His sister of lung cancer and his father had a history of bone cancer perhaps as well primary lung cancer. ALLERGIES: SEASONAL as well as BEE VENOM. CURRENT MEDICATIONS: - albuterol 2 puffs q.i.d. - fluticasone two sprays daily p.r.n. - lisinopril 10 08/05.5 daily - multivitamins one capsule p.o. daily - oxycodone 09/09 one p.o. q. 4 hours as needed. REVIEW OF SYSTEMS: Respiratory: Denies current significant coughing, but he will have an occasional cough. He has no significant dyspnea unless he tries to exert himself. He has no hemoptysis, hiccups pleuritic chest pain or wheezing. Psychiatric: Denies delusions, hallucination, mood changes or depression. Neurologic: Denies disorientation, dizziness, gait issues, headaches, insomnia, memory loss, neuropathy, paralysis, seizure disorder, sensory problems or stroke. Musculoskeletal: Denies arthritis. Has occasional aches and pain problems but no persistent problems with pain. Denies significant joint pain, muscle weakness or decreased range of motion. Integumentary: Denies alopecia, blisters, bruising, dry skin, facial burning, finger nail or toenail issues, photosensitivity, pruritus, rashes or urticaria. Hematologic/lymphatic: Denies easy bruising, lymphadenopathy. Head: Denies alopecia. Genitourinary: Denies dysuria, frequency, hematuria, impotence, incontinence, nocturia, renal stone disease, retrograde ejaculation, scrotal swelling, urgency or change in urine color. Gastrointestinal: Denies bowel or bowel habit changes, constipation, diarrhea, heartburn, dyspepsia, hematemesis, hematochezia, hemorrhoids, melanin, GI bleeding, nausea, pain, cramping, early satiety, vomiting. HEENT: Denies ear pain, epistaxis, esophagitis, hearing ability decrease, denies mouth dryness, oral bleeding, otitis, sinusitis, sputum production, stomatitis, alteration in taste, tinnitus. Endocrine: Denies diabetes, hot flashes, but denies thyroid disease. Constitutional: Denies decreased appetite, fatigue, fevers, lethargy, malaise, night sweats, rigors or weight change. Cardiovascular: Denies arrhythmia, chest pain, dyspnea, orthopnea or palpitations. EXAMINATION FINDINGS: Vitals: O2 saturation 96% on room air. Diastolic 96, systolic 149, respirations 22, pulse 117, temperature 98.3, weight 223.4, height 69 inches. HEENT: Normocephalic. EOMs intact. PERRLA. Fundi benign. Lymphatics: No palpable peripheral lymphadenopathy in the cervical, supraclavicular, axillary or inguinal lymph node chains. Lungs: Clear to auscultation and percussion. Heart: Regular without murmurs. Thoracotomy scar well healed. Heart: Regular without audible murmurs. Abdomen: Without evidence of hepatomegaly, masses, deep abdominal tenderness. Extremities: Without cyanosis, clubbing or edema. Neurologic: Examination physiologic and nonfocal. IMPRESSION: Stage III A, T1b, N2, M0 adenocarcinoma, involving the right upper lobe status post thoracotomy with resection of the right and middle lobes. The tumor measured 2 x 2 x 1.8 cm in largest dimension and peribronchial lymph nodes were free of malignancy. The azygos lymph node, however, biopsy was positive for metastatic disease partially replacing the node and paratracheal lymph nodes (two) were positive for metastatic disease. He was thusly staged a pathologic [id number] or group stage III A. There was no evidence of visceral pleural invasion and the bronchial vascular margins were free. PLAN OF RADIOTHERAPY: The patient is a candidate for an adjuvant radiotherapy and chemotherapy. We would recommend a course of adjuvant postoperative radiotherapy administered in approximately 6-7 weeks. Prior to treatment delivery, localization will be accomplished on our CT simulator and treatment portals defined by the use of multiple leaf collimators. The indications, possible side effects of skin reaction, odynophagia, dysphagia, radiation esophagitis and fatigue have been explained to the patient in detail. He understands and is willing to proceed as outlined. Thank you for allowing us the opportunity of participation in the management of this very fine gentleman. cc: MD Rubi Arce MD David Rechlin, DO, [facility]
== END ==
LOC: M ONCR 10:21
PROVIDERS: ATTEND Radiology Radiation Oncology
DX: C34.11 Malignant neoplasm of upper lobe, right bronchus or lung (principal)

== ENCOUNTER → 2018-12-07 | Outpatient (CLI) | payer OTHER ==
--- NOTE | 2018-12-07 11:01 | REP ---
Chest x-ray: Two views. History: Right lung malignancy post surgery. Comparison chest x-ray: November 16, 2018. Findings: There is a right-sided Esqquh-D-Iycl with the catheter tip in the expected location of the superior vena cava. There is postoperative volume loss in the right lung with elevation of the right hemidiaphragm. The previously noted extrathoracic soft tissue emphysema has resolved. There is slight pleural thickening on the right. There is no evidence of pneumothorax or castro hydrothorax. The left lung is clear. Heart is not enlarged. Impression: Post thoracotomy changes and volume loss in the right chest. Fvwewq-[id number]-Dvdb catheter. Otherwise no acute disease. Electronically Signed by Justin Orosco MD 12/07/2018 04:48 P
== END ==
LOC: M SMT 08:35
PROVIDERS: ATTEND Thoracic Surgery (Cardiothoracic Vascular Surgery)
DX: Z48.3 Aftercare following surgery for neoplasm (principal)

== ENCOUNTER 2018-12-15 14:12 | Outpatient (RCR) | payer OTHER ==
--- NOTE | 2018-12-08 09:08 | RADONC ---
RADIATION ONCOLOGY SIMULATION NOTE DATE: 12/05/2018 CHART NUMBER: [id number] Mr. Mcdonnell was taken to the CT scan for CT simulation of his right upper lobe field. CT was accomplished without difficulty or discomfort. Radiation treatment planning is underway and radiation treatments will begin subsequently. An immobilization device was created without difficulty or discomfort. It will be used throughout the course of treatment. I was physically present throughout the course of CT simulation.
[~2018-12-15 14:12] MED LIST changes: +PEPC10TA6 PO
[2019-01-05] MEDS ORDERED: MAGICMW SSP (10:17)
[2019-01-06] MEDS ORDERED: LISI10TA4 PO (08:16)
[2019-01-26] MEDS ORDERED: [UNRECOGNIZED DRUG - CODE] IM (08:06)
[2019-03-26] MEDS ORDERED: MULTCAP PO (11:03)
[2019-03-26] MEDS ORDERED: NEUR300C PO ×2 (11:37→11:41)
[2019-04-06] MEDS ORDERED: FOLI1TAB11 PO (10:08)
[2019-04-09] MEDS ORDERED: PERC5TAB12 PO ×2 (13:22→13:26)
[2019-04-24] MEDS ORDERED: DEXA4TA PO (10:17)
[2019-04-24] MEDS ORDERED: OXYC1TAB23 PO (10:17)
[2019-04-24] MEDS ORDERED: ATIV1TAB7 PO (10:20)
[2019-04-24] MEDS ORDERED: MULTCAP PO (11:38)
== END 2018-12-16 ==
LOC: M ONCR 14:12
PROVIDERS: ATTEND Radiology Radiation Oncology
DX: C34.11 Malignant neoplasm of upper lobe, right bronchus or lung (principal)

== ENCOUNTER 2019-01-06 08:01 | Emergency (ER) | payer OTHER ==
[~2019-01-06] VITALS: Ht 175.3 cm; Wt 101.8 kg
[~2019-01-06 08:01] MED LIST changes: +MAGICMW SSP
[2019-01-06] MEDS ORDERED: LISI10TA4 (08:16)
[2019-01-06] MEDS ORDERED: ACETAMINOPHEN 500 MG TAB PO ONE (08:30)
[2019-01-06] MEDS ORDERED: NS 1,000 ML IV ONE ×2 (08:30→10:15)
[2019-01-06 08:58] LABS: VENOUS BASE EXCESS 1.1 (-2.0-2.0); VENOUS HCO3 25.5 MEQ/L (23.0-27.0); VENOUS O2 SATURATION 90.7 % (60.0-80.0); VENOUS PARTIAL PRESSURE CO2 39.8 mmHg (38.0-50.0); VENOUS PARTIAL PRESSURE O2 58.9 mmHg (30.0-50.0); VENOUS PH 7.424 UNITS (7.330-7.430); VENOUS STANDARD HCO3 25.3 MEQ/L; VENOUS TOTAL CO2 26.7 MEQ/L (24.0-28.0)
--- NOTE | 2019-01-06 09:03 | REP ---
PORTABLE CHEST: AP portable view of the chest is performed. There is no acute infiltrate or pulmonary edema. There is again elevation of the right hemidiaphragm. Heart is not enlarged. Mediastinal silhouette is unchanged. Right central venous catheter is again noted. There is mild right pleural thickening which is stable. IMPRESSION: No acute pulmonary disease. Electronically Signed by Bebo Daily MD 01/07/2019 05:47 P
[2019-01-06 09:20] LABS: BASO % 0.2 % (0.0-1.0); EOS % 0.6 % (0.0-3.0); HEMATOCRIT 38.7 % (42.0-52.0); HEMOGLOBIN 12.7 g/dl (13.5-17.5); LYMPH % 1.5 % (24.0-44.0); MEAN CORPUSCULAR HEMOGLOBIN 27.5 pg (27.0-33.0); MEAN CORPUSCULAR HGB CONC 32.8 g/dl (32.0-36.5); MEAN CORPUSCULAR VOLUME 83.9 fl (80.0-96.0); MONO # 0.2 10^3/uL (0.0-0.8); MONO % 4.4 % (0.0-5.0); NEUTROPHILS # 4.8 10^3/uL (1.5-8.5); NEUTROPHILS % 92.2 % (36.0-66.0); PLATELET COUNT, AUTOMATED 119 10^3/uL (150-450); RED BLOOD COUNT 4.61 10^6/uL (4.30-6.10); WHITE BLOOD COUNT 5.2 10^3/uL (4.0-10.0)
[2019-01-06 09:28] LABS: ALBUMIN 3.1 GM/DL (3.2-5.2); ALT/SGPT 50 U/L (12-78); AMYLASE 46 U/L (25-115); BILIRUBIN,DIRECT 0.2 MG/DL (0.0-0.2); BILIRUBIN,TOTAL 0.5 MG/DL (0.2-1.0); BLOOD UREA NITROGEN 16 MG/DL (7-18); C REACTIVE PROTEIN QUANTITATIV 7.13 MG/DL (0.00-0.30); CARBON DIOXIDE LEVEL 25 MEQ/L (21-32); CHLORIDE LEVEL 101 MEQ/L (98-107); CK-MB VALUE MASS 1.6 NG/ML (<3.6); CPK CREATINE PHOSPHOKINASE 91 U/L (39-308); CREATININE FOR GFR 1.14 MG/DL (0.70-1.30); GLOMERULAR FILTRATION RATE > 60.0 (>49); GLUCOSE, FASTING 116 MG/DL (70-100); INFLUENZA A AMPLIFICATION NEGATIVE (NEGATIVE); INFLUENZA B AMPLIFICATION NEGATIVE (NEGATIVE); MB/CK RELATIVE INDEX 1.76 (< OR =4); POTASSIUM SERUM 4.1 MEQ/L (3.5-5.1); SODIUM LEVEL 135 MEQ/L (136-145); TOTAL PROTEIN 6.5 GM/DL (6.4-8.2); TROPONIN I < 0.02 NG/ML (< 0.10)
[2019-01-06 09:36] LABS: INR 1.14; PROTHROMBIN TIME 14.3 SECONDS (11.8-14.0)
[2019-01-06 09:37] LABS: PARTIAL THROMBOPLASTIN TIME 27.8 SECONDS (25.0-38.4)
[2019-01-06 09:46] LABS: LYMPH # 0.1 10^3/uL (1.5-5.0)
[2019-01-06 11:54] LABS: APPEARANCE, URINE HAZY (CLEAR); BACTERIA, URINE AUTO NEGATIVE (NEGATIVE); BILIRUBIN, URINE AUTO NEGATIVE (NEGATIVE); BLOOD, URINE BLOOD 1+ (NEGATIVE); COLOR, URINE YELLOW (YELLOW); GLUCOSE, URINE (UA) AUTO NEGATIVE (NEGATIVE); KETONE, URINE AUTO NEGATIVE (NEGATIVE); LEUKOCYTE ESTERASE, URINE AUTO NEGATIVE (NEGATIVE); MUCUS, URINE SMALL (NEGATIVE); NITRITE, URINE AUTO NEGATIVE (NEGATIVE); PROTEIN, URINE AUTO NEGATIVE (NEGATIVE); RBC, URINE AUTO 16 /HPF (0-3); SPECIFIC GRAVITY URINE AUTO 1.021 (1.002-1.035); SQUAMOUS EPITHELIAL CELL UR AU 0 /HPF (0-6); UROBILINOGEN, URINE AUTO 0.2 mg/dL (0.0-2.0); WBC, URINE AUTO 1 /HPF (0-3)
[2019-01-06 14:06] VITALS: BP 110/69
[2019-01-06] MEDS ORDERED: SODIUM CHLORIDE 0.9% INJ 10 ML SYR IV PRN (14:15)
--- NOTE | 2019-01-06 15:47 | ECGEPIP ---
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
[2019-01-26] MEDS ORDERED: [UNRECOGNIZED DRUG - CODE] IM (08:06)
== END 2019-01-06 14:31 | disposition home or self-care (01) ==
LOC: M ED 08:01
DX: E86.0 Dehydration (principal); Z79.899 Other long term (current) drug therapy; Z91.030 Bee allergy status; J30.2 Other seasonal allergic rhinitis; Z87.891 Personal history of nicotine dependence

== ENCOUNTER → 2019-01-15 | Outpatient (RCR) | payer OTHER ==
--- NOTE | 2018-12-20 10:04 | RADONC ---
RADIATION ONCOLOGY PROGRESS NOTE DATE: 12/19/2018 CHART NUMBER: [id number] PROGRESS NOTE: Mr. Gonzalo Mcdonnell with a diagnosis of adenocarcinoma of the right upper lobe is currently receiving local regional radiotherapy. His current dose is 540 cGy of an anticipated 3960 cGy and reevaluate for further dose escalations. Thus far, he is tolerating his radiotherapy reasonably well and denies any nausea, vomiting, significant exacerbation of coughing, sputum production or hemoptysis. His energy level is diminished somewhat but he is still able to maintain most of his day-to-day activities without any alteration of his lifestyle. EXAMINATION FINDINGS: Reveals a patient who is alert and appropriate for stated age. There is no evidence of skin erythema or desquamation. Lungs are relatively clear with some wheezing in the upper lobes. Heart: Regular without murmurs. Abdomen: Without evidence of hepatomegaly, masses, deep abdominal tenderness. Extremities: Negative. The remainder of the physical examination is noncontributory. IMPRESSION: Tolerating therapy well. PLAN: Treatments to continue.
--- NOTE | 2018-12-25 08:54 | RADONC ---
RADIATION ONCOLOGY PROGRESS NOTE DATE: 12/25/2018 CHART NUMBER: [id number] PROGRESS NOTE: Mr. Gonzalo Mcdonnell with lung cancer is currently receiving local regional radiotherapy and he is at a dose of 1260 cGy of an anticipated 3960 cGy be followup to be followed by further dose escalations with volume reductions. He is tolerating his therapy quite well with no significant untoward side effects. REVIEW OF SYSTEMS: He specifically denies any nausea, vomiting, coughing, sputum production or hemoptysis. He also denies odynophagia or dysphagia. His energy level is such that he is able to maintain most day-to-day activities without any alteration of his lifestyle. The remainder of the review of systems is unchanged. IMPRESSION: Tolerating therapy well. PLAN: Treatments to continue. Thank you for allowing us the opportunity of participation in the management of this patient.
--- NOTE | 2019-01-03 12:43 | RADONC ---
RADIATION ONCOLOGY PROGRESS NOTE DATE OF SERVICE: 01/01/2019 CHART #: [id number] Mr. Mcdonnell is presently at a dose of 2160 cGy to his mediastinum and is tolerating treatments quite well at this point with no significant difficulties related to his radiation therapy. He is having no significant increased difficulty swallowing or breathing. REVIEW OF SYSTEMS: The patient's review of systems is basically noncontributory. Denies nausea, vomiting, fevers, chills, night sweats, diplopia, headaches, anxiety or depression, anorexia, weight loss, visual disturbances, chest pain, urinary or bowel difficulties, bone pain, or neurological problems. PHYSICAL EXAMINATION: The patient's skin is in good condition with no evidence of moist or dry desquamation. The remainder of his physical exam remains unchanged. Mr. Mcdonnell is tolerating treatments quite well and radiation will continue as scheduled.
--- NOTE | 2019-01-09 09:46 | RADONC ---
RADIATION ONCOLOGY PROGRESS NOTE: DATE: 01/09/2019 CHART NUMBER: [id number] Mr. Mcdonnell is presently at a dose of 3060 cGy to his mediastinum and is tolerating treatments quite well with no complaints at this time related to his radiation therapy. The patient reports that Tuesday he received his chemotherapy and Tuesday he was in our emergency room with a fever 101.3 degrees as well as red face. He had been evaluated in the ER and received IV fluids. His medical oncologist, Dr. Shereen Crabtree was informed. He is scheduled for further chemo this Tuesday. As far as the radiation goes, the patient is having no increased difficulty swallowing. He reports that his breathing is actually improved although I can continue to hear bronchial wheezing sounds. Overall, however the patient reports that he is doing much better today. REVIEW OF SYSTEMS: The patient's review of systems is positive for some continued shortness of breath and wheezing especially in hot, humid weather, but is otherwise now noncontributory. He denies nausea, vomiting, fevers, chills, night sweats, diplopia, headaches, anxiety or depression, anorexia, weight loss, visual disturbances, chest pain, urinary or bowel difficulties, bone pain, or neurological problems. PHYSICAL EXAMINATION: The patient's skin is in good condition with no evidence of moist or dry desquamation. Again the patient's lungs show some bronchial wheezing but are otherwise clear to auscultation and percussion. The remainder of his physical exam remains unchanged. Mr. Mcdonnell is tolerating treatments and radiation will continue as scheduled.
[~2019-01-15] MED LIST changes: +LISI10TA4
--- NOTE | 2019-01-15 09:14 | RADONC ---
RADIATION ONCOLOGY PROGRESS NOTE DATE: 01/15/2019 CHART NUMBER: [id number] Mr. Son is presently a dose of 3960 cGy to his mediastinum and is tolerating treatments quite well at this point with no significant difficulties related to his radiation therapy other than some continued shortness of breath and some wheezing. He did much better over the weekend with his chemotherapy. They adjusted his medications. REVIEW OF SYSTEMS: The patient's review of systems is positive for some continued wheezing and shortness breath, but is otherwise noncontributory. He denies nausea, vomiting, fevers, chills, night sweats, diplopia, headaches, anxiety or depression, anorexia, weight loss, visual disturbances, chest pain, urinary or bowel difficulties, bone pain or neurological problems. PHYSICAL EXAMINATION: The patient's skin is in good condition with no evidence of moist or dry desquamation. The remainder of his physical exam remains unchanged. Mr. Son is tolerating treatments quite well and radiation will continue as scheduled.
== END ==
LOC: M ONCR 12-19 14:09
PROVIDERS: ATTEND Radiology Radiation Oncology
DX: C34.11 Malignant neoplasm of upper lobe, right bronchus or lung (principal)

== ENCOUNTER 2019-01-30 07:52 | Outpatient (RCR) | payer OTHER ==
--- NOTE | 2019-01-16 13:25 | MEDONC ---
HEMATOLOGY/ONCOLOGY PROGRESS NOTE DATE OF SERVICE: 01/16/2019 This is a very pleasant 64-year-old gentleman who is here today after being seen in the hospital emergency room several days ago. The patient had complained of fever of 101.5 with a red flushed face. He was seen in the emergency room. Blood cultures were taken, which turned out to be negative, and his fever had defervesced. No antibiotic therapy was given at that time. The patient is currently being treated for a stage [id number] moderate to poorly differentiated adenocarcinoma of the lung, on chemotherapy combined modality with radiation with Taxol and carboplatin. The patient had completed week #5 of the Taxol/carboplatin on 01/12/2019. He is due for his #6 on 01/19/2019. The patient was seen today due to scheduling issues instead of being seen on Tuesday. He has had no new complaints of any fever. He has done well. Feels well. Has a slight cough and has been tolerating the chemotherapy regimen so far other than that fever. He does have a tendency to get a Decadron flush when he does go through his therapy. On his allergies are SEASONAL ALLERGIES, BEE VENOM, HONEY BEE. His medications are ondansetron, lisinopril, fluticasone, dexamethasone as a premedication, and albuterol. On his review of systems, he has some tiredness, fatigue, occasional cough, again a flush with the Decadron when he receives that, but he has been able to eat. Otherwise, the remainder of the 12-point review of systems are negative. On his physical examination, his ECOG status is 1/4, his temperature is 97.7, pulse is 125, respiratory rate is 20, BP is 130/90, pulse oximetry is 96. His oropharynx is otherwise clear. His neck is supple with no adenopathy. Chest is decreased breath sounds at the bases. Cardiovascular: S1, S2 are appreciated with no murmurs. His abdomen is otherwise soft, nontender. His extremities show no cyanosis, clubbing, or any edema. LABORATORIES: From 01/12/2019 show a WBC count of 3.8, hemoglobin of 13.6 over hematocrit 40.9, RDW of 13, platelet counts of 163, neutrophils are 67, lymphocytes are 27. Serum chemistries show a sodium of 139, potassium 4.4, chloride 99, CO2 26, BUN of 11, creatinine of 1.01, glucose of 171, calcium of 9.8, AST of 12, ALT of 18, alkaline phosphatase of 75, total protein of 7.6. ASSESSMENT: At this time is nonspecific fever with no signs of any neutropenia concomitant possibly due to a nonspecific viral infection, negative blood cultures. PLAN: Is to maintain the patient and continue chemotherapy. He will be due on 01/19/2019 combined modality. Monitor for any signs of infection. Electronically Signed by Rubi Selby MD 01/16/2019 03:42 P DD: Rubi Selby MD 01/16/2019 10:18 A DT: aml 01/16/2019 01:16 P CC: Angel Lowery MD
--- NOTE | 2019-01-22 10:35 | RADONC ---
RADIATION ONCOLOGY PROGRESS NOTE DATE: 01/22/2019 CHART NUMBER: [id number] PROGRESS NOTE: Mr. Mcdonnell is presently at a dose of 4860 cGy to his mediastinum and is tolerating treatments quite well at this point with no complaints related to his radiation therapy. He reports that he is swallowing without difficulty and overall feels fine. The patient's review of system remains unchanged. He is feeling better now after a difficult weekend following his chemotherapy. PHYSICAL EXAMINATION: The patient's skin is in good condition with no evidence of moist or dry desquamation. The remainder of his physical exam remains unchanged. Mr. Mcdonnell is tolerating treatments quite well and radiation will continue as scheduled.
--- NOTE | 2019-01-29 10:40 | RADONC ---
RADIATION ONCOLOGY PROGRESS NOTE DATE: 01/29/2019 CHART NUMBER: [id number] Mr. Mcdonnell is presently at a dose of 5760 cGy to his mediastinum and is tolerating treatments quite well at this point with no significant difficulties related to his radiation therapy other than a scratchy throat. The patient's review of systems is noncontributory. He denies nausea, vomiting, fevers, chills, night sweats, diplopia, headaches, anxiety or depression, anorexia, weight loss, visual disturbances, chest pain, urinary or bowel difficulties, bone pain, or neurological problems. PHYSICAL EXAMINATION: The patient's skin is in good condition with no evidence of moist or dry desquamation. The remainder of his physical exam remains unchanged. Mr. Mcdonnell is tolerating treatments quite well and radiation will continue as scheduled.
[~2019-01-30 07:52] MED LIST changes: +[UNRECOGNIZED DRUG - CODE] IM
--- NOTE | 2019-01-31 09:46 | RADONC ---
RADIATION ONCOLOGY TREATMENT SUMMARY DATE: 01/30/2019 CHART NUMBER: [id number] DIAGNOSIS: Right upper lobe lung cancer. STAGE: IIIA, [id number]. ECOG PERFORMANCE STATUS: 0 TREATMENT SUMMARY: Mr. Mcdonnell is a very pleasant 64-year-old white male with the diagnosis of a stage IIIA, [id number] moderately differentiated adenocarcinoma of the right upper and middle lobes who presented to us status post right upper middle lobe lobectomy and mediastinal node dissection for consideration of postoperative radiation therapy in an attempt to increase the likelihood of achieving local control. We treated the patient to his mediastinum for a total dose of 5940 cGy delivered in 33 fractions of 180 cGy each over 46 elapsed days from 12/14/2018 through 01/30/2019. The patient's mediastinum was treated on a linear accelerator utilizing a 15 MV photon beam via 3D conformal technique. Mr. Mcdonnell tolerated his treatments quite well and was able to complete therapy as prescribed without interruption. I have scheduled the patient to see him again in 1 month for further followup. He will also continue to be followed and managed closely by his other physicians as well. cc: MD Rubi Arce MD David Rechlin, DO, [facility]
[2019-02-02] MEDS ORDERED: GUAI1SOL2 PO (08:48)
== END 2019-02-15 ==
LOC: M ONCR 07:52
PROVIDERS: ATTEND Radiology Radiation Oncology
DX: C34.11 Malignant neoplasm of upper lobe, right bronchus or lung (principal)

== ENCOUNTER → 2019-03-07 | Outpatient (CLI) | payer OTHER ==
[~2019-03-07] MED LIST changes: +GUAI1SOL2 PO
--- NOTE | 2019-03-09 08:28 | RADONC ---
RADIATION ONCOLOGY FOLLOWUP NOTE DATE OF SERVICE: 03/07/2019 CHART #: [id number] DIAGNOSIS: Adenocarcinoma of the right upper lobe. STAGE: III A, [id number]. ECOG PERFORMANCE STATUS: 0. FOLLOWUP NOTE: Mr. Mcdonnell is a very pleasant 64-year-old white male with the diagnosis of a stage III A, [id number], adenocarcinoma of the right upper lobe who is presenting to us today for routine followup visit 1 month post completion of external beam radiation therapy. The patient presents today reporting that he is doing quite well with no significant difficulties related to his radiation therapy other than a feeling of some tightness in the right chest over the treated field area. REVIEW OF SYSTEMS: The patient's review of systems is noncontributory. Denies nausea, vomiting, fevers, chills, night sweats, diplopia, headaches, anxiety or depression, anorexia, weight loss, visual disturbances, chest pain, urinary or bowel difficulties, bone pain, or neurological problems. PHYSICAL EXAMINATION: The patient is a well-developed, well-nourished male in no acute distress. HEENT exam is normocephalic, atraumatic. Extraocular movements are intact. There is no palpable cervical, supraclavicular, infraclavicular, axillary, or inguinal lymphadenopathy present. Lungs are clear to auscultation and percussion. Heart has a regular rate and rhythm. Abdomen is benign with no hepatosplenomegaly, masses, or tenderness. Rectal examination reveals a normal anal sphincter tone. Skeletal examination reveals no tenderness to pressure or percussion of the bony skeleton. Extremities reveal no clubbing, cyanosis, or edema. Neurologic exam is grossly intact, as is the remainder of the physical examination. ASSESSMENT: The patient is clinically stable at this time. He is continuing with his systemic therapy and is scheduled for his next chemotherapy on Tuesday following next week. In addition, he will then be undertaking immunotherapy on a routine basis through medical oncology. In light of the fact that the patient is continuing his close management and follow up with his medical oncologist, I am discharging him from my followup at this time except on a p.r.n. basis. The patient does have my cell phone number and office number if he wishes to see me for any questions whatsoever or if I could be of any assistance in the meantime. cc: MD Rubi Arce MD David Rechlin, DO, [facility]
== END ==
LOC: M ONCR 08:59
PROVIDERS: ATTEND Radiology Radiation Oncology
DX: C34.11 Malignant neoplasm of upper lobe, right bronchus or lung (principal)

== ENCOUNTER → 2019-04-03 | Outpatient (CLI) | payer OTHER ==
[~2019-04-03] MED LIST changes: +NEUR300C PO
--- NOTE | 2019-04-03 12:59 | REP ---
PET/CT: History: Monitoring response to treatment. Poorly differentiated adenocarcinoma of the lung status post concurrent chemo and radiation therapy. Status post right upper lobectomy. Comparisons: Comparison PET/CT September 27, 2018. TECHNIQUE: 59 minutes following the intravenous injection of a 8.74 mCi dose of F-18 FDG, three-dimensional PET scintigraphy is acquired from the skull base to the proximal thighs. Triplanar noncontrast CT scanning is acquired through the same anatomic range for attenuation correction, and image registration with scan parameters optimized to minimize radiation exposure to the patient. PET scintigraphy and CT datasets were fused and displayed on a workstation with multiplanar and projection display capability. PET/CT Findings: There is a right supraclavicular hypermetabolic lymphadenopathy which is a new finding. Maximum standard uptake in the largest and most avid lymph node in the right supraclavicular region is 15.58. There are several foci of abnormal hypermetabolic uptake in the chest. There is a subpleural nodule in the right apex adjacent to the anterior edge of the first rib with maximum standard uptake value 5.84. There is a small subpleural nodule anteriorly in the right lung with maximum standard uptake value 5.56. There is a 1.5 cm precarinal lymph node which is hypermetabolic, maximum standard uptake value 5.43. There is hypermetabolic left perihilar uptake in the lower lobe, maximum standard uptake value 6.78. There is a pleural-based small nodule adjacent to the aortic knob in the left lower lobe superior segment which shows hypermetabolic uptake, 6.42. There are scattered small non-hypermetabolic parenchymal nodules. There is a hypermetabolic nodule in the left lower lobe with maximum standard uptake value 3.25. There is slight geographic misregistration of scintigraphic uptake regarding this nodule. It is seen on CT images to measure 1.6 cm. This is the largest pulmonary parenchymal nodule. There is a hypermetabolic metastatic focus in the posterior segment right lobe of the liver with maximum standard uptake value 13.06. This is approximately 2.3 cm in diameter. No abnormal adrenal uptake is seen. There are multiple metastatic skeletal foci of hypermetabolic uptake. These with their accompanying standard uptake values include a lesion in the lower cervical spine at C6 where maximum SUV is 9.95. An upper thoracic vertebral body focus, 4.23, a left L4 vertebral body lesion, maximum SUV 9.81. Impression: There is unfortunately evidence of progression and metastatic disease involving bilateral lungs, precarinal lymph node, right supraclavicular lymph nodes, a liver lesion, and at least three skeletal sites. Electronically Signed by Justin Orosco MD 04/03/2019 03:31 P
== END ==
LOC: M PLARAD 08:21
PROVIDERS: ATTEND Internal Medicine Hematology & Oncology
DX: C34.11 Malignant neoplasm of upper lobe, right bronchus or lung (principal); C79.51 Secondary malignant neoplasm of bone; C78.7 Secondary malignant neoplasm of liver and intrahepatic bile duct
CPT/HCPCS: 78815; A9552

== ENCOUNTER → 2019-04-20 | Outpatient (CLI) | payer OTHER ==
[~2019-04-20] MED LIST changes: +ATIV1TAB7 PO; +FOLI1TAB11 PO; +OXYC1TAB23 PO; +PERC5TAB12 PO; +PROHANCE 279.3MG/ML 15ML VIAL (A9576) As Ordered ONE; +PROHANCE 279.3MG/ML 5ML VIAL (A9576) As Ordered ONE
--- NOTE | 2019-04-20 20:21 | REP ---
MRI cervical spine without and with intravenous contrast: History: Rule out spinal cord compression from metastasis due to lung cancer. Comparison is made with PET-CT images from April 03, 2019. Technique: Sagittal and axial T1 and T2-weighted scans are acquired in the usual fashion with and without fat saturation. Sequences include spin echo, turbo spin-echo, and STIR imaging sequences. The gadolinium enhancement dose is 18 mL of intravenous ProHance. MRI findings: There is evidence of a hematogenous pattern of metastatic disease involving the 2nd thoracic vertebral body, C6, C7, and C5. There is a spinous process lesion at C6 with pathologic fracture of the spinous process and extraosseous soft tissue extent. There is a right-sided fairly large lesion 1.6 cm in AP dimension in the C6 vertebral body. On the right side at the C5-6 neural foramen and the right C6-7 neural foramen there is a combined bony and soft tissue destructive mass lesion measuring 3.8 by 2.3 cm. There is minimal right ventral epidural enhancing disease compressing the right ventral margin of the thecal sac. Postcontrast images demonstrate extensive mild dural thickening and enhancement along the dorsal aspect of the spinal canal from C2 through C6. There is more focal and a little thicker epidural enhancement ventrally at C6 and C5. At the C6 vertebral body, there is mild spinal stenosis. Midline AP dimension of the thecal sac at C6 is 8 mm. Axial postcontrast images at this level demonstrate mild but essentially circumferential dural thickening and enhancement at C6 and C5-6 disc level. There appears to be neoplastic infiltration of the right neural foramen at C5-6 and C6-7. There is a right supraclavicular lymph node which has enlarged 2.9 cm diameter noted at the edge of the field of view on axial images. No other cervical adenopathy is seen. Impression: Multifocal hematogenous metastatic disease pattern most pronounced at C6 involving anterior and posterior elements at this level. Lesions are also noted at T2, C5 and C7. There is epidural disease and dural thickening and enhancement circumferentially at C6 with mild central canal stenosis and mild cord compression. There is neoplastic infiltration of the right neural foramina at C5-6 and C6-7. Electronically Signed by Justin Orosco MD 04/21/2019 08:19 A
--- NOTE | 2019-04-20 20:24 | REP ---
MRI thoracic spine without and with IV gadolinium: History: Metastatic lung cancer. Rule out spinal cord compression. Comparison PET-CT study April 03, 2019. Technique: Sagittal and axial T1 and T2-weighted scans are acquired in the usual fashion with and without fat saturation. Sequences include spin echo, turbo spin-echo, and STIR imaging sequences. Gadolinium enhancement dose is 18 mL of intravenous ProHance. MRI findings: Please note that counting down from the cervical spine with seven cervical, and 12th thoracic vertebrae, there are only four lumbar type vertebrae the most caudal of these is labeled L4. There is a hematogenous metastasis noted incidentally on surface grinding machine hand images in the L3 vertebral body. There is a 1.9 cm metastatic focus in the T2 vertebral body occupying the right side of the vertebral body. There is contrast enhancement associated with this. No other thoracic vertebral body involvement is appreciated. There is no evidence of epidural metastasis. There is a moderate-sized central focal disc protrusion at the T7-8 vertebral body which indents the ventral margin of the thecal sac and flattens the ventral margin of the cord at this level. No other thoracic disc herniation is seen. Impression: Hematogenous metastatic lesion in the right side of the vertebral body at T2 without thoracic cord compression. There is mild cord compression at the T7-T8 disc level due to a central disc protrusion, which extends cranially and caudally. Two pulmonary nodules are visible in the left lung measuring 1.6 and 1.0 cm in greatest diameter. Electronically Signed by Justin Orosco MD 04/21/2019 08:19 A
== END ==
LOC: M RAD 16:20
PROVIDERS: ATTEND Internal Medicine Hematology & Oncology
DX: C34.90 Malignant neoplasm of unspecified part of unspecified bronchus or lung (principal); C79.51 Secondary malignant neoplasm of bone; M51.24 Other intervertebral disc displacement, thoracic region; M48.02 Spinal stenosis, cervical region
CPT/HCPCS: 72156; 72157; A9576

== ENCOUNTER → 2019-04-24 | Outpatient (CLI) | payer OTHER ==
[~2019-04-24] MED LIST changes: -PROHANCE 279.3MG/ML 15ML VIAL (A9576) As Ordered ONE; -PROHANCE 279.3MG/ML 5ML VIAL (A9576) As Ordered ONE
--- NOTE | 2019-04-25 09:06 | RADONC ---
RADIATION ONCOLOGY CONSULTATION NOTE DATE: 04/24/2019 CHART #: [id number] DIAGNOSIS: Adenocarcinoma of the right upper lobe. STAGE: III A, T1b, N2, M0, now metastatic. ECOG PERFORMANCE STATUS: 0. CONSULTATION NOTE: Mr. Mcdonnell is a very pleasant 64-year-old white male who is well-known to our department and completed a course of radiation therapy to his mediastinum for a dose of 5940 cGy on 01/30/2019. Since completion, the patient has had increasing pain in his neck and running down his right arm. An MRI was done 04/20/2019 which showed multifocal metastatic disease in the C6 vertebral body. There were also lesions noted at T2 vertebral body, the C5 and the C7 vertebral bodies. There was noted to be epidural disease, dural thickening and enhancement circumferentially at C6, with very mild cervical canal stenosis and mild cord compression. There was neoplastic infiltration of the right neural foramen at the levels of C5-C6 and C6-C7. The patient has initiated Decadron treatment with his medical oncologist, Dr. Crabtree, and is now presenting to us for consideration of palliative radiation therapy to the C-spine. PAST MEDICAL HISTORY: The patient's past medical history is positive for hypertension and ankle surgery. ALLERGIES: The patient has NO KNOWN DRUG ALLERGIES. SOCIAL HISTORY: The patient does not smoke cigarettes nor abuse alcohol. FAMILY HISTORY: The patient's family history is positive for a sister with lung cancer and father with bone cancer. REVIEW OF SYSTEMS: The patient's review of systems is positive for some shortness of breath, anxiety, right neck and shoulder pain, as well as, weakness and pain in his right arm. It is otherwise noncontributory. Denies nausea, vomiting, fevers, chills, night sweats, diplopia, headaches, anxiety or depression, anorexia, weight loss, visual disturbances, chest pain, urinary or bowel difficulties, bone pain, or neurological problems. PHYSICAL EXAMINATION: The patient is a well-developed, well-nourished male in no acute distress. HEENT exam is normocephalic, atraumatic. Extraocular movements are intact. There is no palpable cervical, supraclavicular, infraclavicular, axillary, or inguinal lymphadenopathy present. Lungs are clear to auscultation and percussion. Heart has a regular rate and rhythm. Abdomen is benign with no hepatosplenomegaly, masses, or tenderness. Rectal examination reveals a normal anal sphincter tone. His prostate is smooth with no evidence of nodularity. Skeletal examination reveals no tenderness to pressure or percussion of the bony skeleton. Extremities reveal no clubbing, cyanosis, or edema. There is some weakness and limited range of motion in the right upper extremity secondary to discomfort. Neurologic exam is grossly intact, as is the remainder of the physical examination. ASSESSMENT: I believe this patient would be a candidate for palliative radiation therapy and I have so informed him. I have discussed in detail the potential benefits as well as possible acute and chronic sequelae of external beam radiation therapy. Unfortunately, the patient's previous treatment field comes up to the area of present disease. We are attempting to undertake treatment planning and great care and diligence will be needed in order to avoid any overlap with the previously treated field. The spinal cord has already received maximum dose in the presently treated area. Once again, we will offer this patient palliative treatment, but we may be somewhat limited in the scope and volume of our treatment mena in order to avoid overlap. I have personally reviewed the patient's MRI with our radiologist Dr. Luke Orosco and I do believe that the area of largest disease as well as the area of some cord impingement is outside of our original field and therefore it is worth undertaking treatment planning to see if we could safely treat this. I am scheduling the patient for the next available simulation slot and radiation treatments will begin subsequently. I have once again as mentioned above reviewed this with Dr. Orosco and the spinal compression factor in this is minimal. I believe that the patient's difficulties with the right arm and symptomatology have more to do with the patient's bony right sided mass than with the small circumferential spinal cord issue. Thank you for allowing us to participate in the care of this very pleasant gentleman. I will keep you informed as to any new developments as they occur. As always warm regards. cc: MD Angel Mendieta MD
== END ==
LOC: M ONCR 10:48
PROVIDERS: ATTEND Radiology Radiation Oncology
DX: C34.11 Malignant neoplasm of upper lobe, right bronchus or lung (principal); C79.51 Secondary malignant neoplasm of bone

== ENCOUNTER 2019-04-30 07:59 | Outpatient (RCR) | payer OTHER ==
[2018-11-21 12:58] VITALS: BP 125/86
--- NOTE | 2018-11-22 14:33 | MEDONC ---
HEMATOLOGY/ONCOLOGY PROGRESS NOTE New patient consultation DATE OF SERVICE: 11/21/2018 This is a very pleasant 63-year-old gentleman who is here today on evaluation to discuss management of non-small cell lung carcinoma. He had a chief complaint of having had persistent cough. He had been seen due to a respiratory infection that he had developed an July 2017. The patient had a chest x-ray done at that time, which had shown a right-sided lung lesion. The patient relates that he is not short of breath but only when he has exertion such as climbing stairs or shoveling snow. The patient then went for a biopsy, which was consistent with adenocarcinoma, moderately differentiated and this was sent for markers, found to be EGFR negative, ALK negative, ROS-1 mutation negative and PD-L1 1%. He had a followup PET scan done at [facility], which showed a hypermetabolic uptake in the right upper lobe lesion, but there was no evidence of any disease in the mediastinum. Pulmonary function tests showed a bout of 75% predicted value of his FEV-1, which was 2.68, and a diffusion capacity of 31.4. The patient at this point from a clinical perspective was staged as a I A adenocarcinoma confined to the right upper lobe. The patient underwent a thoracoscopy with right upper lobectomy and lymph node sampling. The patient then developed an alveolar pleural fistula that had required a right pleural blood patch. The patient has been feeling well since this has been done and has some minimum to moderate post thoracotomy pain. He has been currently taking Tylenol for this and is able to sleep through the night. He is here with his for discussions regarding therapy. The patient has a past medical history of hypertension. He has also had a history of ankle surgery. 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 His was stationed in the [employer]. The patient was about a one to two pack a day smoker for at least 20-30 years. FAMILY HISTORY: His sister of lung cancer. Father has a history of bone cancer. Mother had a history of heart attack and is . ALLERGIES: Seasonal allergies. BEE VENOM PROTEIN IN [place]. CURRENT MEDICATIONS: Include: - albuterol sulfate two puffs inhalation q.i.d. - fluticasone 2 sprays daily p.r.n. - lisinopril/hydrochlorothiazide 10/20.5 - multivitamins 1 capsule p.o. daily - oxycodone / one p.o. q.4 h as needed REVIEW OF SYSTEMS: 1. CONSTITUTIONAL: No weight loss, fever chills or night sweats. 2. EYES: No blurring of vision, no visual loss partial or complete, no tearing, redness. 3. EAR, NOSE, THROAT and MOUTH: No hearing loss, sinusitis, sore throat, dental problems, tooth pain. Denies dysphagia, mouth sores, bleeding. 4. RESPIRATORY: Shortness of breath on exertion or prolonged speaking. Also, raising his arms on the postthoracotomy side is somewhat uncomfortable, but he is able to do it without restriction. 5. GI: No nausea, vomiting, diarrhea or constipation, change in color or caliber of stool. No hemorrhoids. No rectal bleeding. No hematemesis, heartburn. 6. : No hematuria, dysuria, frequency, stones. 7. CV: No chest pain, palpitations, murmur, fainting, lightheadedness or chest pressure. 8. ENDOCRINE: No cold or heat intolerance, diabetes, polyuria, polydipsia. 9. MUSCULOSKELETAL: No new joint stiffness, joint swelling, myalgias, gout. 10. ALLERGY/IMMUNOLOGY: No new allergies to food, medications. 11. HEMATOLOGICAL: Denies bruising, bleeding, lymph node enlargement. 12. PSYCHIATRIC: Denies depression, agitation, memory loss, panic attacks. 13. SKIN: Denies rashes, moles, dryness, pigment changes. 14. NEUROLOGIC: Denies dizziness, syncope, seizures, vertigo, weakness, tremor. PHYSICAL EXAMINATION: CONSTITUTIONAL: ECOG status 1/4, weight is 100 kg, BSA is 2.24, BMI is 32.6. HEENT: NC. AT, PERRL, EOMI, sclera is white, nonicteric, nares intact, oropharynx clear, no thrush, no buccal lesions, tongue without lesions, facial area without abnormalities. NECK: Trachea midline. No thyromegaly. No masses. CHEST: Decreased breath sounds at the bases. Postthoracotomy scar on the right is well healed. No signs of any erythema, edema, or any exudate. CV: S1 and S2 appreciated, no murmurs, gallops or rubs. Rhythm RR. ABDOMEN: Soft, nontender. No HSM. No ascites. No guarding or rebound. EXTREMITIES: No cyanosis, clubbing or edema. IMAGING STUDIES: CT scan of the chest shows a 2.4 spiculated nodule in the right upper lobe suspicious for primary pulmonary malignancy. The spiculated lesion measures 2 x 4 x 1.8 x 1.8 cm. The patient had a PET nuclear bone scan showing hypermetabolic uptake in the right upper lobe nodule. There is no abnormal hypermetabolic uptake in either hilus or in the mediastinum. There is no evidence of any adenopathy. On the patient's pathology, he had PD-L1 expression of 1%. Negative for ROS-1 gene mutation. He is ALK negative. There is no loss of nuclear expression of the MMR proteins and there is a low probability of microsatellite instability. LABORATORIES: WBC count of 15.8, hemoglobin and hematocrit of 10.5 over 33.1, RDW of 13.8, platelets of 390, neutrophils of 76, lymphocytes of 13. Serum chemistries show a sodium of 140, potassium 4.6, chloride of 104. CO2 of 30, BUN of 15, creatinine of 1.2. Pathology in the patient is fine needle aspiration from 12/14/2018 shows moderately differentiated adenocarcinoma of the lung. On his pathology from his lobectomy, the right upper and middle lobes did show moderately differentiated adenocarcinoma with mucinous differentiation. The tumor is 2 x 2 x 1.8 cm in its largest dimension. The tumor is subpleural, puckers the overlying pleura. There is no invasion into the overlying pleura noted. Peribronchial lymph nodes and bronchial margins appear to be free of any malignancy. The azygous lymph node shows metastatic adenocarcinoma completely replacing the lymph node and the paratracheal lymph nodes are also positive for malignancy with metastatic adenocarcinoma noted in at least two of the multiple lymph nodes. There also are a few clusters of malignant cells noted in the blood clot associated with the lymph node. ASSESSMENT: 1. [id number] moderate to poorly differentiated adenocarcinoma. EGFR, ROS-1, and ALK negative and PD-L1 1% expressed. 2. COPD. PLAN: I had a discussion with the patient and his regarding adjuvant therapy. I have recommended combined modality therapy with weekly Taxol and carboplatinum for 7 weeks followed by 2 months of Taxol at 200 mg per metered squared and carboplatinum with an AUC of 6. After that, I have also recommended, as per the NCCN guidelines, durvalumab therapy, which is to be given IV every 2 weeks for approximately 1 year for maintenance. The patient will be seeing Dr. Bebo Aviles for radiation oncology consultation. He will also need a Port-A-Cath placed as well and can get started on chemotherapy as soon as the consult from RAD/ONC is done and his Port-A-Cath is placed. Medications for his chemotherapy have been sent in electronically to his pharmacy for Decadron 4 mg tablets. Instructions are to take 2-1/2 tablets p.o. 12 hours and 2-1/2 tablets 6 hours before chemotherapy appointment, ondansetron 8 mg p.o. t.i.d. #30, and lidocaine / prilocaine cream to place over the Port-A-Cath site before accessing. cc: Dr Bebo Kelley ,Director Radiation Oncology / Cancer Center Dr. Angel Aldana , Director of Thoracic surgery Electronically Signed by Rubi Selby MD 11/22/2018 04:12 P DD: Rubi Selby MD 11/21/2018 05:12 P DT: calista 11/22/2018 02:05 P CC: MD Arash Arce DO, [facility]
[2018-11-30 09:50] VITALS: BP 152/93
--- NOTE | 2018-12-05 10:33 | MEDONC ---
HEMATOLOGY/ONCOLOGY PROGRESS NOTE DATE OF SERVICE: 11/30/2018 This is very pleasant 63 year old who is here today to discuss treatment planning for his [id number] moderate to poorly differentiated adenocarcinoma, EGFR, ROS1 and ALK negative, and PD-L1 1% expressed. The patient is to go on weekly Taxol and Carboplatin for 7 weeks, followed by 2 months of Taxol at 200 mg/m2 with Carboplatin with an AUC of 6. After that the patient has been recommended to get durvalumab therapy given IV every 2 weeks for approximately 1 year for maintenance. The patient has seen Dr. Dickerson for radiation oncology consultation and is currently awaiting treatment planning and simulation. The patient had a Port-A-Cath placed today. The patient's past medical, surgical, and family history remains unchanged since his date of service of 11/21/2018. The bandage was removed from the Port-A-Cath site. It shows a well-healed Port-A-Cath site with no signs of any erythema, edema, no signs of any exudates. I have reviewed the treatment plan with radiation oncology. At this point, unfortunately the patient has to go through some form of an insurance review for reimbursement issues and likely will be started in approximately 2 weeks. We will be more than happy to see him at that time. He has been given premedications for the steroids. These were given to him and they are in the pharmacy. The patient was reinforced to take 2-1/2 tablets 12 hours and 2-1/2 tablets 6 hours before his Taxol treatment. Antinausea medication was also called in. I verbally called in the prescription for the lidocaine, prilocaine as we have had technical difficulties getting the prescription through the [employer] portal. Electronically Signed by Rubi Selby MD 12/05/2018 12:10 P DD: Rubi Selby MD 11/30/2018 02:33 P DT: lyric 12/05/2018 10:25 A CC: Angel Lowery MD
[2018-12-14 07:57] VITALS: BP 151/94
[2018-12-14 08:06] LABS: BASO % 0.1 % (0.0-1.0); HEMATOCRIT 44.9 % (42.0-52.0); HEMOGLOBIN 13.9 g/dl (13.5-17.5); LYMPH # 0.8 10^3/uL (1.5-4.5); LYMPH % 9.5 % (24.0-44.0); MEAN CORPUSCULAR HEMOGLOBIN 27.3 pg (27.0-33.0); MEAN CORPUSCULAR VOLUME 88.2 fl (80.0-96.0); MONO % 0.5 % (0.0-5.0); NEUTROPHILS # 7.4 10^3/uL (1.8-7.7); NEUTROPHILS % 89.4 % (36.0-66.0); PLATELET COUNT, AUTOMATED 287 10^3/uL (150-450); RED BLOOD COUNT 5.09 10^6/uL (4.30-6.10); WHITE BLOOD COUNT 8.3 10^3/uL (4.0-10.0)
[2018-12-14 08:28] LABS: ALBUMIN 3.7 GM/DL (3.2-5.2); ALT/SGPT 29 U/L (12-78); BILIRUBIN,TOTAL 0.6 MG/DL (0.2-1.0); BLOOD UREA NITROGEN 12 MG/DL (7-18); CALCIUM LEVEL 9.5 MG/DL (8.8-10.2); CARBON DIOXIDE LEVEL 26 MEQ/L (21-32); CHLORIDE LEVEL 103 MEQ/L (98-107); GLOMERULAR FILTRATION RATE > 60.0 (>49); GLUCOSE, FASTING 244 MG/DL (70-100); POTASSIUM SERUM 4.1 MEQ/L (3.5-5.1); SODIUM LEVEL 137 MEQ/L (136-145)
--- NOTE | 2018-12-14 09:39 | ONC.PHACK ---
CHEMO ADMIN CHECKLIST Order Contains Pt ID: Name, Order on Chemo Order Form?: Yes Order Form Includes ALL: Correct Tx Day, Correct Date, Correct Cycle Number Pt ID on Order form Matches: Pt ID on PHA Label Med on Chemo OrderForm Matches: PHA Label, Med Used for Preparation [facility] Dec 14, 2018 09:39
[2018-12-14] MEDS: SODIUM CHLORIDE 0.9% INJ 10 ML SYR IV PRN (12:49)
--- NOTE | 2018-12-15 15:06 | MEDONC ---
MEDICAL ONCOLOGY PROGRESS NOTE DATE OF SERVICE: 12/14/2018 REASON FOR VISIT: The patient is here to initiate his chemotherapy regimen for a [id number] moderate to poorly differentiated adenocarcinoma, EGFR, ROS1 and ALK negative. The patient has PD-L1 percent expression. The patient's treatment plan is to go on weekly Taxol Carboplatin for 7 weeks with combined modality radiation followed by 2 months of Taxol at 200 mg/2 with Carboplatin with an AUC of 6. This will be every 28 days. After that the patient will be getting durvalumab at 10 mg/kg IV over 60 minutes on a 14 day cycle for a maximum of 12 months. Today's visit was about obtaining consent. I had gotten informed consent for the patient for Taxol and Carboplatin. We have reviewed the side effects, risks and benefits of the medication. The patient has confirmed that he has taken his premedications and steroids today. His Port-a-Cath has been good otherwise, and a printout of the durvalumab was given to the patient and his today for review. On physical exam, Port-a-Cath is intact. There are no signs of any erythema, edema or any exudates. Plan is to initiate chemotherapy and have the patient followup with me on a weekly basis to assess for any signs of any complications. I have reviewed with the patient that as we go on with chemotherapy side effects may become more prominent such as fatigue, weakness and to limit his activity to 50% of what he had previously done. Electronically Signed by Rubi Selby MD 12/15/2018 04:34 P DD: Rubi Selby MD 12/14/2018 08:55 A DT: lyric 12/15/2018 02:46 P CC: Angel Lowery MD
[2018-12-22 08:42] VITALS: BP 135/83
[2018-12-22 08:58] LABS: HEMATOCRIT 43.2 % (42.0-52.0); HEMOGLOBIN 14.5 g/dl (13.5-17.5); MEAN CORPUSCULAR HEMOGLOBIN 28.4 pg (27.0-33.0); MEAN CORPUSCULAR HGB CONC 33.6 g/dl (32.0-36.5); MEAN CORPUSCULAR VOLUME 84.8 fl (80.0-96.0); NEUTROPHILS # 5.6 10^3/uL (1.8-7.7); NEUTROPHILS % 79.5 % (36.0-66.0); RED BLOOD COUNT 5.1 10^6/uL (4.30-6.10); WHITE BLOOD COUNT 7.1 10^3/uL (4.0-10.0)
[2018-12-22 09:15] LABS: ALBUMIN 4.5 GM/DL (3.5-5.2); BLOOD UREA NITROGEN 15 MG/DL (6-20); CARBON DIOXIDE LEVEL 27 MEQ/L (23-31); CHLORIDE LEVEL 100 MMOL/L (98-107); CREATININE FOR GFR 0.89 MG/DL (0.90-1.30); GLUCOSE, FASTING 186 MG/DL (70-105); SODIUM LEVEL 134 MMOL/L (135-145); TOTAL PROTEIN 7.9 GM/DL (6.4-8.3)
[2018-12-22 09:16] LABS: GLOMERULAR FILTRATION RATE > 60.0 (>49)
--- NOTE | 2018-12-22 10:34 | ONC.PHACK ---
CHEMO ADMIN CHECKLIST Order Contains Pt ID: Name, Order on Chemo Order Form?: Yes Order Form Includes ALL: Correct Tx Day, Correct Date, Correct Cycle Number Pt ID on Order form Matches: Pt ID on PHA Label Med on Chemo OrderForm Matches: PHA Label, Med Used for Preparation [facility] Dec 22, 2018 10:34
[2018-12-22] MEDS: SODIUM CHLORIDE 0.9% INJ 10 ML SYR IV PRN (12:22)
--- NOTE | 2018-12-23 09:47 | MEDONC ---
HEMATOLOGY/ONCOLOGY PROGRESS NOTE DATE OF GUSDE: 12/22/2018 REASON FOR VISIT: The patient is here for week #2 of Taxol carboplatinum with combined modality radiation therapy for a [id number] moderate to poorly differentiated adenocarcinoma, EGFR, ROS-1 and ALK negative. The patient is on a regimen of carbo and Taxol weekly for 7 weeks, to be followed by 2 months of Taxol at 200 mg per metered squared with carboplatinum with an AUC of 6. This patient will then follow with durvalumab at 10 mg/kg IV on a 14-day cycle for maximum of 12 months. The patient tolerated his first chemotherapy well. He had a Decadron flush on his facial area but otherwise had no signs of any nausea, vomiting, diarrhea or any constipation. PAST MEDICAL HISTORY: Hypertension, history of ankle surgery. 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 His was also stationed in the [employer]. He has about one to two packs a day smoker for about 20-30 years. FAMILY HISTORY: He has a sister who of lung cancer. Father has a history of bone cancer. Mother who had an CA, is currently . ALLERGIES: Seasonal allergies, bee venom protein in honey bee. CURRENT MEDICATIONS: - albuterol sulfate 2 puffs q.i.d. - fluticasone 2 sprays daily p.r.n. - lisinopril / hydrochlorothiazide 10 /20.5 one p.o. daily - MVI 1 capsule p.o. daily - oxycodone 5/25 one p.o. q.4 h as needed p.r.n. for pain REVIEW OF SYSTEMS: 1. CONSTITUTIONAL: No weight loss, fever chills or night sweats. Decadron flush a day after he had gotten his chemotherapy and during the treatment infusion but no signs of any nausea, vomiting, diarrhea, constipation. 2. EYES: No blurring of vision, no visual loss partial or complete, no tearing, redness. 3. EAR, NOSE, THROAT and MOUTH: No hearing loss, sinusitis, sore throat, dental problems, tooth pain. Denies dysphagia, mouth sores, bleeding. 4. RESPIRATORY: Denies asthma, wheezing, cough, sputum production. 5. GI: No nausea, vomiting, diarrhea or constipation, change in color or caliber of stool. No hemorrhoids. No rectal bleeding. No hematemesis, heartburn. 6. : No hematuria, dysuria, frequency, stones. 7. CV: No chest pain, palpitations, murmur, fainting, lightheadedness or chest pressure. 8. ENDOCRINE: No cold or heat intolerance, diabetes, polyuria, polydipsia. 9. MUSCULOSKELETAL: No new joint stiffness, joint swelling, myalgias, gout. 10. ALLERGY/IMMUNOLOGY: No new allergies to food, medications. 11. HEMATOLOGICAL: Denies bruising, bleeding, lymph node enlargement. 12. PSYCHIATRIC: Denies depression, agitation, memory loss, panic attacks. 13. SKIN: Denies rashes, moles, dryness, pigment changes. 14. NEUROLOGIC: Denies dizziness, syncope, seizures, vertigo, weakness, tremor. PHYSICAL EXAMINATION: CONSTITUTIONAL: ECOG status 1/4, temperature 98, pulse 104, respiratory rate 20, blood pressure 135/83, pulse oximetry 95. HEENT: NC. AT, PERRL, EOMI, sclera is white, nonicteric, nares intact, oropharynx clear, no thrush, no buccal lesions, tongue without lesions, facial area without abnormalities. NECK: Trachea midline. No thyromegaly. No masses. CHEST: Normal AP diameter. No truncal lesions noted. No rales, rhonchi or wheezes noted. Clear to auscultation and percussion. CV: S1 and S2 appreciated, no murmurs, gallops or rubs. Rhythm RR. ABDOMEN: Soft, nontender. No HSM. No ascites. No guarding or rebound. : No CVA tenderness. Normal external genitalia, normal secondary sexual characteristics. EXTREMITIES: Upper extremities: No edema, swelling, abnormalities. Lower extremities show no cyanosis, clubbing or edema. No varicosities. Good capillary filling noted on right and left lower extremity. NEUROLOGICAL: Cranial nerves II- XII intact. No focal deficits, motor and sensory intact, no tremor. VASCULAR: Pulses equal and present in upper extremities and lower extremities. Good capillary filling in lower extremities. No carotid bruits. No abdominal bruits. MUSCULOSKELETAL: No point tenderness. Normal spinal alignment. Range of motion joints, no limitation. SKIN: No lesions, rashes noted. PSYCH: No agitation, normal behavior. LABORATORIES: WBC count is 7.1, hemoglobin and hematocrit of 14.5 over 43.2, MCV of 84.8, RDW of 13.3, platelets of 271, neutrophils of 79, lymphocytes are 18. Serum chemistries currently pending. ASSESSMENT: The patient tolerated first cycle of chemotherapy well. PLAN: Continue weekly carbo, taxol cachil dehe as scheduled. Follow up in 1 week with chemo, followup 2 weeks with the physician and laboratories on followup each week with CBC, CMP and LDH. Electronically Signed by Rubi Selby MD 12/25/2018 04:35 P DD: Rubi Selby MD 12/22/2018 09:07 A DT: calista 12/23/2018 09:42 A CC:
[2018-12-29 08:53] LABS: HEMATOCRIT 45.3 % (42.0-52.0); HEMOGLOBIN 14.9 g/dl (13.5-17.5); LYMPH % 17.6 % (24.0-44.0); MEAN CORPUSCULAR HEMOGLOBIN 27.9 pg (27.0-33.0); MEAN CORPUSCULAR HGB CONC 32.9 g/dl (32.0-36.5); MEAN CORPUSCULAR VOLUME 84.6 fl (80.0-96.0); NEUTROPHILS # 4.7 10^3/uL (1.8-7.7); NEUTROPHILS % 80.2 % (36.0-66.0); RED BLOOD COUNT 5.35 10^6/uL (4.30-6.10); WHITE BLOOD COUNT 5.8 10^3/uL (4.0-10.0)
[2018-12-29 09:04] VITALS: BP 141/88
[2018-12-29 09:33] LABS: ALBUMIN 4.6 GM/DL (3.5-5.2); BLOOD UREA NITROGEN 13 MG/DL (6-20); CARBON DIOXIDE LEVEL 26 MEQ/L (23-31); CHLORIDE LEVEL 100 MMOL/L (98-107); CREATININE FOR GFR 1.09 MG/DL (0.90-1.30); GLOMERULAR FILTRATION RATE > 60.0 (>49); GLUCOSE, FASTING 172 MG/DL (70-105); SODIUM LEVEL 135 MMOL/L (135-145); TOTAL PROTEIN 7.8 GM/DL (6.4-8.3)
--- NOTE | 2018-12-29 10:52 | ONC.PHACK ---
CHEMO ADMIN CHECKLIST Order Contains Pt ID: Name, Order on Chemo Order Form?: Yes Order Form Includes ALL: Correct Tx Day, Correct Date, Correct Cycle Number Pt ID on Order form Matches: Pt ID on PHA Label Med on Chemo OrderForm Matches: PHA Label, Med Used for Preparation [facility] Dec 29, 2018 10:52
[2019-01-05 09:56] VITALS: BP 148/88
[2019-01-05 10:09] LABS: HEMATOCRIT 42.7 % (42.0-52.0); LYMPH % 22.6 % (24.0-44.0); MEAN CORPUSCULAR HEMOGLOBIN 27.8 pg (27.0-33.0); MEAN CORPUSCULAR HGB CONC 32.8 g/dl (32.0-36.5); MEAN CORPUSCULAR VOLUME 84.9 fl (80.0-96.0); NEUTROPHILS # 3.1 10^3/uL (1.8-7.7); NEUTROPHILS % 71.2 % (36.0-66.0); RED BLOOD COUNT 5.03 10^6/uL (4.30-6.10); WHITE BLOOD COUNT 4.3 10^3/uL (4.0-10.0)
[2019-01-05 10:19] LABS: ALBUMIN 4.3 GM/DL (3.5-5.2); BLOOD UREA NITROGEN 18 MG/DL (6-20); CARBON DIOXIDE LEVEL 25 MEQ/L (23-31); CHLORIDE LEVEL 98 MMOL/L (98-107); CREATININE FOR GFR 1.22 MG/DL (0.90-1.30); GLOMERULAR FILTRATION RATE > 60.0 (>49); GLUCOSE, FASTING 219 MG/DL (70-105); SODIUM LEVEL 133 MMOL/L (135-145); TOTAL PROTEIN 7.4 GM/DL (6.4-8.3)
--- NOTE | 2019-01-05 11:10 | ONC.PHACK ---
CHEMO ADMIN CHECKLIST Order Contains Pt ID: Name, Order on Chemo Order Form?: Yes Order Form Includes ALL: Correct Tx Day, Correct Date, Correct Cycle Number Pt ID on Order form Matches: Pt ID on PHA Label Med on Chemo OrderForm Matches: PHA Label, Med Used for Preparation [facility] Jan 05, 2019 11:10
--- NOTE | 2019-01-08 14:02 | MEDONC ---
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 The patient is currently still able to eat. He has some heartburn. He has not had any problems with drinking water or other foods, it is just acidic foods that are bothering him. The patient's past medical, social and family history have remained unchanged since his date of service of 12/22/2018. REVIEW OF SYSTEMS: 1. CONSTITUTIONAL: Tiredness and fatigue as chemotherapy is going on and minimal anxiety that is easily handled by having discussions with his spouse and avoidance of citric or acidy foods. No weight loss, fever chills or night sweats. 2. EYES: No blurring of vision, no visual loss partial or complete, no tearing, redness. 3. EAR, NOSE, THROAT and MOUTH: No hearing loss, sinusitis, sore throat, dental problems, tooth pain. Denies dysphagia, mouth sores, bleeding. 4. RESPIRATORY: Denies asthma, wheezing, cough, sputum production. 5. GI: No nausea, vomiting, diarrhea or constipation, change in color or caliber of stool. No hemorrhoids. No rectal bleeding. No hematemesis, heartburn. 6. : No hematuria, dysuria, frequency, stones. 7. CV: No chest pain, palpitations, murmur, fainting, lightheadedness or chest pressure. 8. ENDOCRINE: No cold or heat intolerance, diabetes, polyuria, polydipsia. 9. MUSCULOSKELETAL: No new joint stiffness, joint swelling, myalgias, gout. 10. ALLERGY/IMMUNOLOGY: No new allergies to food, medications. 11. HEMATOLOGICAL: Denies bruising, bleeding, lymph node enlargement. 12. PSYCHIATRIC: Denies depression, agitation, memory loss, panic attacks. 13. SKIN: Denies rashes, moles, dryness, pigment changes. 14. NEUROLOGIC: Denies dizziness, syncope, seizures, vertigo, weakness, tremor. PHYSICAL EXAMINATION: CONSTITUTIONAL: ECOG status 0/4, temperature 97.7, pulse 126, respiratory rate 24, blood pressure 148/88, pulse oximetry is 96. HEENT is normocephalic, atraumatic. PERRL. EOMI. Sclerae is otherwise white and nonicteric. His oropharynx is otherwise clear. His neck is supple with no adenopathy. Chest is clear to auscultation percussion. Cardiovascular: S1, S2 are appreciated with no murmurs. His abdomen is otherwise soft. Extremities show no cyanosis, clubbing or any edema. LABORATORIES: WBC count of 4.3, hemoglobin and hematocrit of 14 over 42, MCV of 89, RDW of 13.6, platelet counts 155, neutrophils of 71, lymphocytes of 22. Sodium is 133, chloride is 98, creatinine is 1.22, calcium is 9.5, AST of 12, ALT of 17, alkaline phosphatase of 90. ASSESSMENT: Distal esophageal carcinoma, currently tolerating combined modality chemoradiation. The patient is for treatment #4 today. PLAN: I have prescribed some magic mouthwash to swish and swallow in case the patient should have any progression of symptoms. He will be following up to see me in approximately 2 weeks. Electronically Signed by Rubi Selby MD 01/15/2019 05:02 P DD: Rubi Selby MD 01/05/2019 03:14 P DT: calista 01/08/2019 01:53 P CC:
[2019-01-12 08:30] VITALS: BP 134/94
[2019-01-12 08:44] LABS: HEMATOCRIT 40.9 % (42.0-52.0); HEMOGLOBIN 13.6 g/dl (13.5-17.5); LYMPH % 27.4 % (24.0-44.0); MEAN CORPUSCULAR HEMOGLOBIN 27.6 pg (27.0-33.0); MEAN CORPUSCULAR HGB CONC 33.3 g/dl (32.0-36.5); NEUTROPHILS # 2.6 10^3/uL (1.8-7.7); NEUTROPHILS % 67.6 % (36.0-66.0); RED BLOOD COUNT 4.93 10^6/uL (4.30-6.10); WHITE BLOOD COUNT 3.8 10^3/uL (4.0-10.0)
[2019-01-12 08:57] LABS: ALBUMIN 4.2 GM/DL (3.5-5.2); BLOOD UREA NITROGEN 11 MG/DL (6-20); CARBON DIOXIDE LEVEL 26 MEQ/L (23-31); CHLORIDE LEVEL 99 MMOL/L (98-107); CREATININE FOR GFR 1.01 MG/DL (0.90-1.30); GLOMERULAR FILTRATION RATE > 60.0 (>49); GLUCOSE, FASTING 171 MG/DL (70-105); SODIUM LEVEL 136 MMOL/L (135-145); TOTAL PROTEIN 7.6 GM/DL (6.4-8.3)
--- NOTE | 2019-01-12 10:01 | MEDONC ---
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 CURRENT TREATMENT: Coordinate chemotherapy (Carboplatin with RIGHT). Today is week #5 of chemotherapy out of a seven total planned treatments. INTERVAL HISTORY: Gonzalo presents today for a scheduled followup visit. This is my first time meeting him. He is an established patient of Dr. Selby. I am seeing Gonzalo today while Dr. Selby is out of the office. Gonzalo reports an onset of fevers and chills with systemic erythema approximately 12 hours after his last chemotherapy treatment. He went to the [facility] ER for further evaluation. CBC was unremarkable. Temperature was noted to be 101.5. He was observed and treated with 2 liters of IV hydration and subsequently discharged to home. He states that his fever and the erythema resolved gradually and without any other intervention over the next 48 hours. Today, he denies any fevers, chills or rashes. At present, he claims to be in his usual state of health. Currently, Gonzalo is able to eat. He does not have any problems with solids or liquids at this time. He does have Magic Mouthwash on hand should he need it. Currently, no other new complaints offered. REVIEW OF SYSTEMS: 12 system review is completed and as noted above for pertinent positives and negatives. Otherwise, a negative review. PHYSICAL EXAMINATION: Weight is 100 kg. Temperature 97.5, pulse 128 (chronic tachycardia noted), BP 134/94, O2 sat 97% at rest on room air. GENERAL: Exam reveals a pleasant, tall, well-groomed, middle-aged man who is comfortable and in no acute distress. HEENT: No scleral icterus. Oral pharynx, oral mucous membranes normal. Conjunctivae normal. No thyroid enlargement or nodule. No jugular venous distention. Neck supple. Carotid upstrokes 1+; no bruits. Fundi normal bilaterally. RESPIRATORY: Lungs clear bilaterally to auscultation and percussion. No rales, rhonchi, or wheezing. CARDIOVASCULAR: PMI 5th left intercostal space, midline. S1, S2 normal. No S3, S4, or murmurs. Regular rhythm. Femoral, dorsalis pedis pulses 2+ bilaterally. LYMPHATICS: No palpable lymphadenopathy. ABDOMEN: Soft, nontender. Bowel sounds normal. No tenderness, guarding, or rebound. No palpable masses or hepatosplenomegaly. MUSCULOSKELETAL: No focal skeletal tenderness to percussion. No joint swelling, warmth, tenderness, or erythema. SKIN: No rash, ecchymosis, or petechiae. Normal turgor. EXTREMITIES: No edema, clubbing, cyanosis. No thigh or calf tenderness. Normal range of motion. LABORATORY DATA: WBC 3.8, ANC 2.6, RBC 4.93, H/H 13.6, 40.9, platelets 163. Chemistries are unremarkable with the exception of a nonfasting glucose of 171. 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 Receiving coordinate chemo RT. This will be Gonzalo's fifth weekly treatment of Carbo/Taxol. As noted above, approximately 12 hours after his most recent infusion, he experienced systemic erythema (slightly puretic) and a temperature of 101.5 with chills. Managed by the ER with observation and IV hydration. Symptoms resolving slowly thereafter over the next 48 hours. Gonzalo presents today in his usual state of health. No recurrent fevers or chills. No rashes. ECOG performance status 0. PLAN: 1. Obtain blood cultures per protocol from the patient's port and peripherally. 2. Add to chemotherapy premed Tylenol 650 mg p.o. x1 dose and increase Decadron 20 mg IV. 3. Proceed with chemotherapy today, cycle #5. 4. Return in 1 week for treatment #6 and a brief office visit with Dr. Selby with labs including a CBC and differential and stat CMP. 5. Gonzalo was instructed to call us via the answering service over the weekend or go to the nearest emergency room if in doubt. The patient and his verbalize understanding and agreement of our plan. Electronically Signed by Shaunna Gutierrez NP 01/12/2019 02:50 P DD: Shaunna Gutierrez NP 01/12/2019 09:23 A DT: lyric 01/12/2019 09:52 A CC: Angel Lowery MD
--- NOTE | 2019-01-12 10:18 | ONC.PHACK ---
CHEMO ADMIN CHECKLIST Order Contains Pt ID: Name, Order on Chemo Order Form?: Yes Order Form Includes ALL: Correct Tx Day, Correct Date, Correct Cycle Number Pt ID on Order form Matches: Pt ID on PHA Label Med on Chemo OrderForm Matches: PHA Label, Med Used for Preparation [facility] Jan 12, 2019 10:18
[2019-01-16 08:56] VITALS: BP 130/90
[2019-01-19 08:43] VITALS: BP 127/85
[2019-01-19 08:47] LABS: HEMATOCRIT 40.4 % (42.0-52.0); HEMOGLOBIN 13.8 g/dl (13.5-17.5); LYMPH % 14.8 % (24.0-44.0); MEAN CORPUSCULAR HEMOGLOBIN 28.5 pg (27.0-33.0); MEAN CORPUSCULAR HGB CONC 34.2 g/dl (32.0-36.5); MEAN CORPUSCULAR VOLUME 83.4 fl (80.0-96.0); NEUTROPHILS # 3.9 10^3/uL (1.8-7.7); NEUTROPHILS % 82.4 % (36.0-66.0); RED BLOOD COUNT 4.85 10^6/uL (4.30-6.10); WHITE BLOOD COUNT 4.7 10^3/uL (4.0-10.0)
[2019-01-19 09:03] LABS: ALBUMIN 4.4 GM/DL (3.5-5.2); BLOOD UREA NITROGEN 14 MG/DL (6-20); CARBON DIOXIDE LEVEL 25 MEQ/L (23-31); CHLORIDE LEVEL 99 MMOL/L (98-107); CREATININE FOR GFR 1.07 MG/DL (0.90-1.30); GLOMERULAR FILTRATION RATE > 60.0 (>49); GLUCOSE, FASTING 156 MG/DL (70-105); SODIUM LEVEL 136 MMOL/L (135-145); TOTAL PROTEIN 7.5 GM/DL (6.4-8.3)
--- NOTE | 2019-01-22 09:09 | ONC.PHACK ---
CHEMO ADMIN CHECKLIST Order Contains Pt ID: Name, Order on Chemo Order Form?: Yes Order Form Includes ALL: Correct Tx Day, Correct Date, Correct Cycle Number Pt ID on Order form Matches: Pt ID on PHA Label Med on Chemo OrderForm Matches: PHA Label, Med Used for Preparation [facility] Jan 22, 2019 09:09
[2019-01-26 08:02] VITALS: BP 131/89
[2019-01-26 08:07] LABS: HEMATOCRIT 41.6 % (42.0-52.0); HEMOGLOBIN 13.7 g/dl (13.5-17.5); LYMPH % 17.1 % (24.0-44.0); MEAN CORPUSCULAR HGB CONC 32.9 g/dl (32.0-36.5); MEAN CORPUSCULAR VOLUME 85.1 fl (80.0-96.0); NEUTROPHILS # 2.9 10^3/uL (1.8-7.7); NEUTROPHILS % 79.6 % (36.0-66.0); RED BLOOD COUNT 4.89 10^6/uL (4.30-6.10); WHITE BLOOD COUNT 3.6 10^3/uL (4.0-10.0)
[2019-01-26 08:24] LABS: ALBUMIN 4.3 GM/DL (3.5-5.2); BLOOD UREA NITROGEN 11 MG/DL (6-20); CARBON DIOXIDE LEVEL 26 MEQ/L (23-31); CHLORIDE LEVEL 100 MMOL/L (98-107); CREATININE FOR GFR 1.01 MG/DL (0.90-1.30); GLOMERULAR FILTRATION RATE > 60.0 (>49); GLUCOSE, FASTING 182 MG/DL (70-105); SODIUM LEVEL 137 MMOL/L (135-145); TOTAL PROTEIN 6.3 GM/DL (6.4-8.3)
--- NOTE | 2019-01-26 09:00 | ONC.PHACK ---
CHEMO ADMIN CHECKLIST Order Contains Pt ID: Name, Order on Chemo Order Form?: Yes Order Form Includes ALL: Correct Tx Day, Correct Date, Correct Cycle Number Pt ID on Order form Matches: Pt ID on PHA Label Med on Chemo OrderForm Matches: PHA Label, Med Used for Preparation [facility] Jan 26, 2019 09:00
--- NOTE | 2019-01-26 22:33 | MEDONC ---
HEMATOLOGY/ONCOLOGY PROGRESS NOTE REASON FOR VISIT The patient is here for evaluation of cycle #6 of weekly Taxol/carboplatinum as part of combined modality chemotherapy and radiation for a stage [id number] moderate to poorly differentiated adenocarcinoma of the lung . The patient relates that he is able to eat better. He feels better and that he is eating a greater variety of foods without any difficulty. TREATMENT HISTORY: 1. The patient developed an upper respiratory tract infection in July 2018. Chest x-ray had shown a right-sided lung lesion. The patient went for a biopsy consistent with moderately differentiated adenocarcinoma, EGFR negative, ALK negative, ROS1 mutation negative and PD-L1 percent positive. PET scan staging had shown hypermetabolic uptake in the right upper lobe lesion. No evidence of any disease in the mediastinum. The patient's pulmonary functions showed 75% predicted, FEV-1 which was 2.68, diffusion capacity of 31.4. The patient diagnosed as a stage I A adenocarcinoma of the right upper lobe. 2. The patient underwent a thoracoscopy with a right upper lobectomy and lymph node sampling. 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 3. Right upper and middle lobectomy done on 10/27/2018 showed again moderately differentiated adenocarcinoma with mucinous differentiation, tumor measured 2 x 2 x 1.8 cm in largest dimension. Tumor was subpleural, puckered over the overlying pleura but no invasion into the overlying pleura was noted. Peribronchial lymph nodes and bronchial margins appeared free of malignancy. The patient had one paratracheal lymph node that was positive, staging [id number]. The patient started chemotherapy on December 14, 2018. OTHER PAST MEDICAL HISTORY: Hypertension, history of ankle surgery. 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 His was also stationed in the [employer]. The patient was a one to two pack a day smoker for about 20-30 years. FAMILY HISTORY: Sister of lung cancer. Father has a history of bone cancer. Mother had a history of heart attack, currently . ALLERGIES: SEASONAL ALLERGIES as well as BEE VENOM, PROTEIN and HONEY BEE. MEDICATIONS: Include albuterol, dexamethasone, fluticasone, lisinopril and ondansetron. The patient takes 10 mg p.o. 12 hours and 6 hours before his weekly Taxol/carboplatinum. REVIEW OF SYSTEMS: 1. CONSTITUTIONAL: He feels better. He is able to eat better. No problems with any sleeping. No numbness or tingling. No signs of any mucositis. The remainder of the 12-point review of systems is otherwise negative. 2. EYES: No blurring of vision, no visual loss partial or complete, no tearing, redness. 3. EAR, NOSE, THROAT and MOUTH: No hearing loss, sinusitis, sore throat, dental problems, tooth pain. Denies dysphagia, mouth sores, bleeding. 4. RESPIRATORY: Denies asthma, wheezing, cough, sputum production. 5. GI: No nausea, vomiting, diarrhea or constipation, change in color or caliber of stool. No hemorrhoids. No rectal bleeding. No hematemesis, heartburn. 6. : No hematuria, dysuria, frequency, stones. 7. CV: No chest pain, palpitations, murmur, fainting, lightheadedness or chest pressure. 8. ENDOCRINE: No cold or heat intolerance, diabetes, polyuria, polydipsia. 9. MUSCULOSKELETAL: No new joint stiffness, joint swelling, myalgias, gout. 10. ALLERGY/IMMUNOLOGY: No new allergies to food, medications. 11. HEMATOLOGICAL: Denies bruising, bleeding, lymph node enlargement. 12. PSYCHIATRIC: Denies depression, agitation, memory loss, panic attacks. 13. SKIN: Denies rashes, moles, dryness, pigment changes. 14. NEUROLOGIC: Denies dizziness, syncope, seizures, vertigo, weakness, tremor. PHYSICAL EXAMINATION: CONSTITUTIONAL: ECOG status 0 out of 4. His temperature is 97.8, pulse is 131, respiratory rate is 20. Blood pressure is 131/89. Pulse oximetry is 96. HEENT: NC. AT, PERRL, EOMI, sclera is white, nonicteric, nares intact, oropharynx clear, no thrush. The buccal mucosa is intact. No signs of any lesions. Tongue without lesions, facial area without abnormalities. NECK: Trachea midline. No thyromegaly. No masses. CHEST: Normal AP diameter. No truncal lesions noted. No rales, rhonchi or wheezes noted. Clear to auscultation and percussion. CV: S1 and S2 appreciated, no murmurs, gallops or rubs. Rhythm RR. ABDOMEN: Soft, nontender. No HSM. No ascites. No guarding or rebound. : No CVA tenderness. Normal external genitalia, normal secondary sexual characteristics. EXTREMITIES: Upper extremities: No numbness or tingling in the fingertips and toes. No edema, swelling, abnormalities. Lower extremities show no cyanosis, clubbing or edema. No varicosities. Good capillary filling noted on right and left lower extremity. NEUROLOGICAL: Cranial nerves II- XII intact. No focal deficits, motor and sensory intact, no tremor. VASCULAR: Pulses equal and present in upper extremities and lower extremities. Good capillary filling in lower extremities. No carotid bruits. No abdominal bruits. MUSCULOSKELETAL: No point tenderness. Normal spinal alignment. Range of motion joints, no limitation. SKIN: No lesions, rashes noted. PSYCH: No agitation, normal behavior. LABORATORIES: His WBC count is 3.6, hemoglobin is 13.7 over 41.6, RDW is 14.7, platelets 161,000, neutrophils are 79,000, lymphocytes are 17. On his chemistries the patient has a sodium of 137, potassium of 4.4, chloride of 101, CO2 26, BUN of 11, creatinine of 1.01, GFR is greater than 60, fasting glucose of 182, calcium of 97, AST of 9, ALT of 11. PLAN: Continue the paclitaxel 50 mg per metered squared weekly for total of seven doses with carboplatinum with an AUC with concurrent thoracic radiation therapy. The patient will get two additional cycles to be given 21 days x2 with paclitaxel at 200 mg per metered squared and carboplatinum with an AUC 6/6. The patient will start his two cycles 21 days after the last chemotherapy and radiation session. Electronically Signed by Rubi Selby MD 01/29/2019 11:53 A DD: Rubi Selby MD 01/26/2019 08:49 A DT: magali 01/26/2019 09:50 P CC:
[2019-02-02 08:23] VITALS: BP 135/89
[2019-02-02 08:30] LABS: HEMATOCRIT 38.9 % (42.0-52.0); HEMOGLOBIN 12.9 g/dl (13.5-17.5); LYMPH % 18.5 % (24.0-44.0); MEAN CORPUSCULAR HEMOGLOBIN 28.2 pg (27.0-33.0); MEAN CORPUSCULAR HGB CONC 33.2 g/dl (32.0-36.5); MEAN CORPUSCULAR VOLUME 84.9 fl (80.0-96.0); NEUTROPHILS # 2.7 10^3/uL (1.8-7.7); NEUTROPHILS % 73.4 % (36.0-66.0); RED BLOOD COUNT 4.58 10^6/uL (4.30-6.10); WHITE BLOOD COUNT 3.7 10^3/uL (4.0-10.0)
[2019-02-02 08:49] LABS: BLOOD UREA NITROGEN 12 MG/DL (6-20); CARBON DIOXIDE LEVEL 28 MEQ/L (23-31); CHLORIDE LEVEL 99 MMOL/L (98-107); CREATININE FOR GFR 1.02 MG/DL (0.90-1.30); GLOMERULAR FILTRATION RATE > 60.0 (>49); GLUCOSE, FASTING 120 MG/DL (70-105); SODIUM LEVEL 135 MMOL/L (135-145); TOTAL PROTEIN 6.7 GM/DL (6.4-8.3)
--- NOTE | 2019-02-03 07:45 | MEDONC ---
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 The patient has completed six weekly cycles of Taxol carboplatinum with combined modality radiation. He is here to assess his response and to see where his white counts are. Please refer to his treatment history from his note of 01/26/2019. Past medical, surgical and family history, and medications have all remained unchanged since his date of service of 01/26/2019. The patient is on his review of system relates that he is coughing at night, having clear mucus, occasional blood tinged sputum but no signs of any gross hemoptysis. He has no numbness or tingling of the fingertips and toes and has had no mucositis. He does feel tired but states that the he is able to participate in all of his activities of daily living. The remainder of his 12-point review of systems is otherwise as per normals. 1. CONSTITUTIONAL: No weight loss, fever chills or night sweats. 2. EYES: No blurring of vision, no visual loss partial or complete, no tearing, redness. 3. EAR, NOSE, THROAT and MOUTH: No hearing loss, sinusitis, sore throat, dental problems, tooth pain. Denies dysphagia, mouth sores, bleeding. 4. RESPIRATORY: Denies asthma, wheezing, cough, sputum production. 5. GI: No nausea, vomiting, diarrhea or constipation, change in color or caliber of stool. No hemorrhoids. No rectal bleeding. No hematemesis, heartburn. 6. : No hematuria, dysuria, frequency, stones. 7. CV: No chest pain, palpitations, murmur, fainting, lightheadedness or chest pressure. 8. ENDOCRINE: No cold or heat intolerance, diabetes, polyuria, polydipsia. 9. MUSCULOSKELETAL: No new joint stiffness, joint swelling, myalgias, gout. 10. ALLERGY/IMMUNOLOGY: No new allergies to food, medications. 11. HEMATOLOGICAL: Denies bruising, bleeding, lymph node enlargement. 12. PSYCHIATRIC: Denies depression, agitation, memory loss, panic attacks. 13. SKIN: Denies rashes, moles, dryness, pigment changes. 14. NEUROLOGIC: Denies dizziness, syncope, seizures, vertigo, weakness, tremor. On his physical examination his weight is 98.4 kg, BSA is 2.22, BMI is 32, temperature is 97.8, pulse is 129, respiratory rate is 20, BP is 135/89, pulse oximetry is 96. His physical examination is otherwise as per normal with the exception of some generalized pallor. CONSTITUTIONAL: ECOG status 0/4 HEENT: NC. AT, PERRL, EOMI, sclera is white, nonicteric, nares intact, oropharynx clear, no thrush, no buccal lesions, tongue without lesions, facial area without abnormalities. NECK: Trachea midline. No thyromegaly. No masses. CHEST: Normal AP diameter. No truncal lesions noted. No rales, rhonchi or wheezes noted. Clear to auscultation and percussion. CV: S1 and S2 appreciated, no murmurs, gallops or rubs. Rhythm RR. ABDOMEN: Soft, nontender. No HSM. No ascites. No guarding or rebound. : No CVA tenderness. Normal external genitalia, normal secondary sexual characteristics. EXTREMITIES: Upper extremities: No edema, swelling, abnormalities. Lower extremities show no cyanosis, clubbing or edema. No varicosities. Good capillary filling noted on right and left lower extremity. NEUROLOGICAL: Cranial nerves II- XII intact. No focal deficits, motor and sensory intact, no tremor. VASCULAR: Pulses equal and present in upper extremities and lower extremities. Good capillary filling in lower extremities. No carotid bruits. No abdominal bruits. MUSCULOSKELETAL: No point tenderness. Normal spinal alignment. Range of motion joints, no limitation. SKIN: No lesions, rashes noted. PSYCH: No agitation, normal behavior. Laboratories from 02/02/2019 show a WBC of 3.7, hemoglobin of 12.9 over 38.9, RDW of 14.2, platelets 148, neutrophils are 73, lymphocytes are 18. Serum chemistries show a sodium of 135, potassium 4.1, chloride of 99, CO2 of 28, BUN 12, creatinine 1.02, GFR is 60, fasting glucose is 120, ALT is 10, AST is was 12, alkaline phosphatase of 88, LDH of 119, total protein 6.7, albumin is 4.0. ASSESSMENT: 1. This patient tolerated weekly chemotherapy radiation well. 2. Persistent cough at night likely due to some degree of mucositis and tumor effect. PLAN: Is to have the patient start on the codeine syrup for coughing, continue local supportive measures and the patient is to also started on February 23 his Taxol at 200 mg per metered squared every 21-days. The patient was advised to take five of the 4 mg Decadron tablets 12 hours and five of the 12 mg tablet 6 hours before his After the patient has finished with a two cycles of Taxol and carboplatinum he will then be started on durvalumab 10 mg/kg IV over 60 minutes as per the NCCN guidelines for a maximum of 12 months. I had these discussions initially with the patient and I have advised that I would be giving them some more information as we get closer to his next dose. PLAN: Is to have the patient followup on February 23 for chemotherapy in doctor visit with CBC, CMP and LDH. Electronically Signed by Rubi Selby MD 02/05/2019 02:03 P DD: Rubi Selby MD 02/02/2019 09:44 A DT: bassem 02/03/2019 07:21 A CC: Bebo Aviles MD
[2019-02-23 09:16] VITALS: BP 132/85
[2019-02-23 09:17] LABS: BASO % 0.1 % (0.0-1.0); HEMATOCRIT 40.8 % (42.0-52.0); HEMOGLOBIN 13.2 g/dl (13.5-17.5); LYMPH # 0.3 10^3/uL (1.5-5.0); MEAN CORPUSCULAR HEMOGLOBIN 27.7 pg (27.0-33.0); MEAN CORPUSCULAR HGB CONC 32.4 g/dl (32.0-36.5); MEAN CORPUSCULAR VOLUME 85.7 fl (80.0-96.0); MONO # 0.1 10^3/uL (0.0-0.8); MONO % 1.1 % (0.0-5.0); NEUTROPHILS # 8.9 10^3/uL (1.5-8.5); NEUTROPHILS % 95.4 % (36.0-66.0); PLATELET COUNT, AUTOMATED 252 10^3/uL (150-450); RED BLOOD COUNT 4.76 10^6/uL (4.30-6.10); WHITE BLOOD COUNT 9.3 10^3/uL (4.0-10.0)
[2019-02-23 09:45] LABS: ALBUMIN 3.6 GM/DL (3.2-5.2); ALT/SGPT 24 U/L (12-78); BILIRUBIN,TOTAL 0.4 MG/DL (0.2-1.0); BLOOD UREA NITROGEN 10 MG/DL (7-18); CALCIUM LEVEL 9.5 MG/DL (8.8-10.2); CARBON DIOXIDE LEVEL 28 MEQ/L (21-32); CHLORIDE LEVEL 105 MEQ/L (98-107); CREATININE FOR GFR 1.15 MG/DL (0.70-1.30); GLOMERULAR FILTRATION RATE > 60.0 (>49); GLUCOSE, FASTING 164 MG/DL (70-100); SODIUM LEVEL 138 MEQ/L (136-145)
--- NOTE | 2019-02-23 11:20 | ONC.PHACK ---
CHEMO ADMIN CHECKLIST Order Contains Pt ID: Name, Order on Chemo Order Form?: Yes Order Form Includes ALL: Correct Tx Day, Correct Date, Correct Cycle Number Pt ID on Order form Matches: Pt ID on PHA Label Med on Chemo OrderForm Matches: PHA Label, Med Used for Preparation [facility] Feb 23, 2019 11:20
--- NOTE | 2019-02-23 23:12 | MEDONC ---
HEMATOLOGY PROGRESS NOTE DATE OF SERVICE: 02/23/2019 The patient is here today for evaluation of Taxol and carboplatinum. The patient has completed seven weekly treatments of Taxol and carboplatinum for non-small cell lung carcinoma with concomitant radiation therapy. The patient was staged as a [id number] poorly differentiated adenocarcinoma of the lung. He will be starting 200 mg per metered squared of Taxol times two with carboplatinum with an AUC of 6 followed by consolidative maintenance with durvalumab. The patient has been feeling well. He has had no signs of any persistent or delayed mucositis and he has been able to eat and maintain his weight. ALLERGIES: BEE VENOM and HONEY BEES, HONEY. MEDICATIONS: Include albuterol, codeine, cough syrup, lisinopril and ondansetron for p.r.n. REVIEW OF SYSTEMS: The patient is getting sleep. Again, he has a little bit of discomfort, a little bit of cough, some tiredness, but is improving off of his weekly regimen and as his radiation esophagitis has been improving has had an improved performance status as well. The remainder of the 12 point review of systems is otherwise negative. PHYSICAL EXAMINATION: ECO out of 4. His height is 175. His BSA is 2.22. His temperature is 98.2, pulse is 132, respiratory rate is 22, BP is 132/85. HEENT is normocephalic, atraumatic. PERRL. EOMI. Sclerae is white, nonicteric. Oropharynx is otherwise clear. His neck is supple with no adenopathy. Chest: Decreased breath sounds at the bases. Cardiovascular: S1 and S2 are appreciated. Abdomen: Soft. Extremities: No edema. LABORATORIES Show a WBC count of 9.3, hemoglobin of 13.2 over 40.8, platelet counts are 252,000. The patient's serum creatinine is 1.15. ASSESSMENT: Poorly differentiated non-small cell lung carcinoma, [id number]. PLAN: Continue and proceed with the Taxol/carboplatinum last two doses as followed by maintenance durvalumab 10 mg/kg. Electronically Signed by Rubi Selby MD 02/26/2019 10:56 A DD: Rubi Selby MD 02/23/2019 10:31 A DT: magali 02/23/2019 10:27 P CC: Anegl Loewry MD
[2019-03-16 08:14] VITALS: BP 136/77
[2019-03-16 08:22] LABS: BASO % 0.1 % (0.0-1.0); HEMATOCRIT 39.8 % (42.0-52.0); HEMOGLOBIN 12.7 g/dl (13.5-17.5); LYMPH % 2.1 % (24.0-44.0); MEAN CORPUSCULAR HGB CONC 31.9 g/dl (32.0-36.5); MEAN CORPUSCULAR VOLUME 87.7 fl (80.0-96.0); MONO # 0.1 10^3/uL (0.0-0.8); MONO % 0.8 % (0.0-5.0); NEUTROPHILS # 10.7 10^3/uL (1.5-8.5); NEUTROPHILS % 96.5 % (36.0-66.0); PLATELET COUNT, AUTOMATED 276 10^3/uL (150-450); RED BLOOD COUNT 4.54 10^6/uL (4.30-6.10); WHITE BLOOD COUNT 11.1 10^3/uL (4.0-10.0)
[2019-03-16 08:30] LABS: LYMPH # 0.2 10^3/uL (1.5-5.0)
[2019-03-16 10:22] LABS: ALBUMIN 3.6 GM/DL (3.2-5.2); ALT/SGPT 26 U/L (12-78); BILIRUBIN,TOTAL 0.6 MG/DL (0.2-1.0); BLOOD UREA NITROGEN 16 MG/DL (7-18); CALCIUM LEVEL 8.8 MG/DL (8.8-10.2); CARBON DIOXIDE LEVEL 25 MEQ/L (21-32); CHLORIDE LEVEL 104 MEQ/L (98-107); CREATININE FOR GFR 1.15 MG/DL (0.70-1.30); GLOMERULAR FILTRATION RATE > 60.0 (>49); GLUCOSE, FASTING 194 MG/DL (70-100); POTASSIUM SERUM 4.1 MEQ/L (3.5-5.1); SODIUM LEVEL 138 MEQ/L (136-145); TOTAL PROTEIN 7.3 GM/DL (6.4-8.2)
[2019-03-26 11:05] VITALS: BP 123/80
--- NOTE | 2019-03-27 07:52 | MEDONC ---
ONCOLOGY FOLLOWUP PROGRESS NOTE: DATE OF SERVICE: 03/26/2019 The patient is a 64-year-old white male diagnosed with non-small cell lung cancer, stage [id number]. The patient has poorly differentiated adenocarcinoma of the lung. The patient completed concurrent chemo and radiation therapy. While under radiation therapy he received weekly lower dose Taxol and carboplatinum. After radiation he received higher dose of Taxol and carboplatinum. The patient completed chemo and radiation therapy. Patient is scheduled to have PET/CT scan. After that he will be started on consolidative maintenance with durvalumab. The patient has been feeling well. Patient's appetite it good and he is maintaining weight. ALLERGIES: BEE VENOM and HONEY BEES, HONEY. MEDICATIONS: Include: albuterol, codeine, cough syrup, lisinopril, and Zofran as needed. REVIEW OF SYSTEMS: The patient feels sleepy at times. He still has a little bit of discomfort, a little bit of cough, some tiredness, but is improving since he tougher chemotherapy. Review of other remaining systems were negative. Weight: 95.5 kilograms, BSA 2.18 m2. Vital signs: Temperature 98.3, pulse 118 per minute, respiratory rate 22, blood pressure 123/80, oxygen saturation 97% at room air. PHYSICAL EXAMINATION: Patient is a well developed, well nourished white male in no acute distress. HEENT is unremarkable. Head is normocephalic, atraumatic. PERRLA. EOMI. Sclera is white, nonicteric. Oropharynx is clear. Neck is supple with no adenopathy, supraclavicular glands and axillary glands. Chest: Decreased breath sounds at the bases. Cardiovascular system: S1 and S2 heard. No murmur. No gallop. Abdomen: Soft, nontender. No organomegaly. Extremities: No edema, clubbing, or cyanosis. LABORATORY DATA: Is not done today. ASSESSMENT: Poorly differentiated non-small cell lung carcinoma, [id number]. PLAN: The patient completed concurrent chemoradiation therapy. He will have PET/CT scan 4 weeks after chemo and radiation therapy. He will continue with maintenance durvalumab 10 mg per kg. Electronically Signed by Sasha Buenrostro MD 04/07/2019 03:29 P DD: Sasha Buenrostro MD 03/26/2019 05:35 P DT: bassem 03/27/2019 07:24 A CC:
[2019-04-06 08:55] VITALS: BP 134/78
[2019-04-06 09:55] LABS: BASO % 0.5 % (0.0-1.0); EOS % 0.4 % (0.0-3.0); HEMATOCRIT 38.8 % (42.0-52.0); HEMOGLOBIN 12.2 g/dl (13.5-17.5); LYMPH # 0.8 10^3/uL (1.5-5.0); LYMPH % 9.8 % (24.0-44.0); MEAN CORPUSCULAR HEMOGLOBIN 28.8 pg (27.0-33.0); MEAN CORPUSCULAR HGB CONC 31.4 g/dl (32.0-36.5); MEAN CORPUSCULAR VOLUME 91.5 fl (80.0-96.0); MONO # 0.6 10^3/uL (0.0-0.8); MONO % 7.4 % (0.0-5.0); NEUTROPHILS # 6.3 10^3/uL (1.5-8.5); NEUTROPHILS % 81.4 % (36.0-66.0); PLATELET COUNT, AUTOMATED 259 10^3/uL (150-450); RED BLOOD COUNT 4.24 10^6/uL (4.30-6.10); WHITE BLOOD COUNT 7.7 10^3/uL (4.0-10.0)
[2019-04-06 10:18] LABS: ALBUMIN 3.5 GM/DL (3.2-5.2); ALT/SGPT 24 U/L (12-78); BILIRUBIN,TOTAL 0.6 MG/DL (0.2-1.0); BLOOD UREA NITROGEN 12 MG/DL (7-18); CALCIUM LEVEL 9.1 MG/DL (8.8-10.2); CARBON DIOXIDE LEVEL 28 MEQ/L (21-32); CHLORIDE LEVEL 104 MEQ/L (98-107); CREATININE FOR GFR 0.88 MG/DL (0.70-1.30); GLOMERULAR FILTRATION RATE > 60.0 (>49); GLUCOSE, FASTING 116 MG/DL (70-100); POTASSIUM SERUM 3.8 MEQ/L (3.5-5.1); SODIUM LEVEL 138 MEQ/L (136-145); TOTAL PROTEIN 7.6 GM/DL (6.4-8.2)
[2019-04-09 08:59] VITALS: BP 102/60
--- NOTE | 2019-04-09 09:51 | ONC.PHACK ---
CHEMO ADMIN CHECKLIST Order Contains Pt ID: Name, Order on Chemo Order Form?: Yes Order Form Includes ALL: Correct Tx Day, Correct Date, Correct Cycle Number Pt ID on Order form Matches: Pt ID on PHA Label Med on Chemo OrderForm Matches: PHA Label, Med Used for Preparation [facility] Apr 09, 2019 09:51
--- NOTE | 2019-04-12 13:08 | MEDONC ---
ONCOLOGY FOLLOWUP PROGRESS NOTE DATE OF SERVICE: 04/06/2019 REASON FOR VISIT: For followup of PET CT scan to evaluate the response to chemoradiation treatment. The patient is a 64-year-old white male diagnosed with non-small cell lung cancer, stage [id number]. The patient has poorly differentiated adenocarcinoma of the lung. He completed concurrent chemoradiotherapy. The patient completed chemo and radiation therapy, had a PET scan and came together with his to check the result. ALLERGIES: Bee venom, honey bees, honey. PHYSICAL EXAMINATION: Weight 89.7 kg, temperature 98, pulse 63 per minute, respiratory rate 18, blood pressure 125/78, oxygen saturation 97% at room air. PET CT scan results done on 04/03/2019. The patient is explained about the PET scan results. Unfortunately he has evidence of disease progression with metastatic disease involving bilateral lungs, precarinal lymph nodes, right supraclavicular lymph nodes, liver lesion and at least three skeletal sites. ASSESSMENT/PLAN: The patient has non-small cell lung cancer adenocarcinoma. He was treated with concurrent chemotherapy and PET scan was performed to check response to therapy. PET CT scan showed progression of disease. The patient and his were somewhat upset. They questioned whether the quality of life will be much better if he does not receive anymore chemotherapy. The patient is explained that there are new treatments with more chemotherapy regimens and immunotherapy with Keytruda. Since he has more than >1% PD-L1 on the tissue biopsy specimen, we can treat him with Keytruda. If he has some response to this treatment he can live few more years. We will plan to use carboplatin and ALIMTA. The patient and his were explained about the new treatment and he finally agreed to start on the new treatment. Electronically Signed by Sasha Buenrostro MD 04/13/2019 07:38 P DD: Sasha Buenrostro MD 04/06/2019 06:00 P DT: maye 04/12/2019 12:57 P CC:
--- NOTE | 2019-04-13 15:07 | MEDONC ---
ONCOLOGY FOLLOWUP PROGRESS NOTE DATE OF SERVICE: 04/09/2019 PROGRESS NOTE: The patient is a 64-year-old white male diagnosed with non-small cell lung cancer, stage [id number]. The patient has poorly differentiated adenocarcinoma of the lung. He completed concurrent chemoradiotherapy. While under radiation therapy, he received weekly lower dose of Taxol and carboplatin. After radiation, he received higher dose of Taxol and carboplatin. The patient completed concurrent chemoradiotherapy. The patient had a PET scan. The PET scan done on 04/03/2019 the radiology report showed there is unfortunately evidence of progression and metastatic disease involving bilateral lungs, precarinal lymph nodes, right supraclavicular lymph nodes, liver lesion and at least three skeletal sites. ALLERGIES: BEE VENOM AND HONEY BEES, HONEY. REVIEW OF SYSTEMS: The patient feels sleepy at times. He still has a little bit of discomfort, a little bit of cough, some tiredness. The significant problem is pain apparently due to metastasis. He has pain in the spine and also right shoulder. He has tingling, numbness in the hands. The pain radiates from right shoulder to extremity. PHYSICAL EXAMINATION: Weight: 94 kg. Temperature 98.5. Pulse 117 per minute. Respiratory rate 22 per minute. Blood pressure 102/60. O2 98% at room air. Patient is a well-developed, well-nourished white male in acute distress because of the pain in the spine and the right shoulder pain. The patient complained that his pain is 7/10 scale. HEENT is unremarkable. Head is normocephalic, atraumatic. Eyes: PERRLA. EOMI. Sclera is white and anicteric. Throat and mouth are clear. Neck is supple with no adenopathy supraclavicular glands and axillary glands. Chest: Decreased breath sounds at the bases. Cardiovascular System: S1 and S2 heard. No murmur. No gallop. Abdomen: Soft, nontender. No organomegaly. Extremities: Right shoulder is slightly swollen. He has some tingling, numbness on the right hand. ASSESSMENT: Poorly differentiated non-small cell lung cancer. His cancer has progressed according to the PET scan which shows his cancer has spread and progression in bilateral lungs, precarinal lymph node, right supraclavicular lymph nodes, a liver lesion and at least three skeletal sites. Initially, he was planned to start on durvalumab maintenance therapy. Because of his disease progression, we will cancel the maintenance therapy with durvalumab. Pathology report showed the biopsy tissue specimen has more than 1% PD-L1. We will start a new chemotherapy with Alimta and carboplatin, including Keytruda. The clinical presentation on his right hand is suggestive on spinal cord compression. We will get MRI scan of the cervical and thoracic spine. If there is evidence of cord compression, we will get consult from radiation oncology to relieve the pain. Since the patient complains of severe pain 10/25, we will start on narcotic Percocet 5/325 q. 4-6 hours p.r.n. for pain. Every 3 weeks' time, he will get new chemotherapy regimen for 6 cycles. If he responds well, we can continue some more cycles until disease progression and or undue toxicity. We can also consider to continue with single agent Keytruda. Electronically Signed by Sasha Buenrostro MD 04/13/2019 07:38 P DD: Sasha Buenrostro MD 04/09/2019 05:06 P DT: lyric 04/13/2019 02:31 P CC:
--- NOTE | 2019-04-24 06:43 | MEDONCTEEN ---
MEDICAL ONCOLOGY TELEPHONE NOTE/URGENT CLINIC UPDATE DATE: 04/23/2019 Mr. Mcdonnell is a 64-year-old man with metastatic [id number] lung cancer having been treated with multiple lines of therapy. He was seen by Dr. Christopher 04/09/2019, concern for spinal cord compression was raised and he was ordered to have MRI scan immediately and return to clinic following MRI. Unfortunately, the scan was not done until 04/20/2019. It does show evidence of mild cord compressing lesions at several sites including T2, C5 and C7 with epidural disease and dural thickening circumferentially at C6 mild stenosis and mild cord compression with neoplastic infiltration in the right neural foramen of C5-6 and C6-7. The patient had complained of significant pain and Dr. Christopher started him on Percocet. He has at home a prescription for dexamethasone for 4 mg. I spoke to him tonight after receiving this through a fax report dated yesterday and in my today folder results. I instructed him to take one 4 mg tablet of dexamethasone tonight with food and another in the morning, to return to the clinic at 8:30 tomorrow morning and I will see him, likely referring him quickly to radiation oncology making sure he has adequate pain medication and dexamethasone. I cautioned him we may be holding systemic treatment until he has completed radiation. He repeated back to me my instructions and agreed to come in tomorrow morning. Electronically Signed by Shereen Crabtree MD 04/24/2019 07:49 A DD: Shereen Crabtree MD 04/23/2019 08:00 P DT: maye 04/24/2019 06:31 A CC:
[2019-04-24 09:54] VITALS: BP 109/79
[2019-04-24 10:48] LABS: BASO % 0.2 % (0.0-1.0); HEMATOCRIT 40.5 % (42.0-52.0); LYMPH # 0.3 10^3/uL (1.5-5.0); LYMPH % 3.3 % (24.0-44.0); MEAN CORPUSCULAR HEMOGLOBIN 28.9 pg (27.0-33.0); MEAN CORPUSCULAR HGB CONC 32.1 g/dl (32.0-36.5); MONO # 0.8 10^3/uL (0.0-0.8); MONO % 7.4 % (0.0-5.0); NEUTROPHILS # 8.9 10^3/uL (1.5-8.5); NEUTROPHILS % 88.7 % (36.0-66.0); PLATELET COUNT, AUTOMATED 189 10^3/uL (150-450); WHITE BLOOD COUNT 10.1 10^3/uL (4.0-10.0)
[2019-04-24 11:25] LABS: ALBUMIN 3.3 GM/DL (3.2-5.2); ALT/SGPT 26 U/L (12-78); BILIRUBIN,TOTAL 0.7 MG/DL (0.2-1.0); BLOOD UREA NITROGEN 13 MG/DL (7-18); CALCIUM LEVEL 9.7 MG/DL (8.8-10.2); CARBON DIOXIDE LEVEL 26 MEQ/L (21-32); CHLORIDE LEVEL 97 MEQ/L (98-107); CREATININE FOR GFR 0.98 MG/DL (0.70-1.30); GLOMERULAR FILTRATION RATE > 60.0 (>49); GLUCOSE, FASTING 137 MG/DL (70-100); POTASSIUM SERUM 4.2 MEQ/L (3.5-5.1); SODIUM LEVEL 133 MEQ/L (136-145); TOTAL PROTEIN 8.2 GM/DL (6.4-8.2)
[2019-04-24 12:38] LABS: FREE T4 1.34 NG/DL (0.76-1.46); THYROID STIMULATING HORMONE 0.709 uIU/ML (0.358-3.740)
--- NOTE | 2019-04-25 12:54 | MEDONC ---
MEDICAL ONCOLOGY URGENT VISIT DATE OF SERVICE: 04/24/2019 DIAGNOSIS: Metastatic moderately differentiated adenocarcinoma of lung with bilateral pulmonary nodules, liver, chest, lymph node and skeletal involvement now with evidence of thoracic spinal cord compressing lesion/epidural disease. TREATMENT HISTORY: 10/2018 diagnosis of stage IA, [id number] right upper lobe moderately differentiated adenocarcinoma of lung, ALK negative, ROS1 negative, PD-L1 TTS 1%, MMR proficient, no EGFR results (testing failed). Concurrent chemoradiation with weekly carboplatin/paclitaxel 01/14/2019 - 01/26/2019. Carboplatin/paclitaxel q. 21 days, two cycles, 02/23/2019 - 03/16/2019. Restaging PET 04/03/2019 with new bilateral lung nodules, precarinal, right supraclavicular lymphadenopathy, right liver lesion, skeletal metastases. Carboplatin/pemetrexed/pembrolizumab begun 04/09/2019. On 04/09/[address] Christopher, the patient complained of right shoulder pain radiating to right arm concerning for radicular involvement and MRI ordered; this was done 04/20/2019 revealing metastatic lesion in the right side of T2 without cord compression, mild cord compression T7-T8 due to central disc protrusion, to pulmonary nodules visible and multifocal hematogenous metastatic disease pattern pronounced at C6, T2, C5, C7 with epidural disease and dural thickening and enhancement circumferentially at C6 with mild central canal stenosis and mild cord compression as well as neoplastic infiltration right neural foramen at C5-6, C6-7. INTERVAL HISTORY: After receiving the stat report of the MRIs, only last night, I called Mr. Mcdonnell instructed him to start dexamethasone, and he is here today to see me and Dr. Aviles of radiation oncology. Overall he is feeling okay. He started the dexamethasone. He is accompanied by his . He has significant back pain with radiating to the right arm and finds it difficult to get comfortable. Medication list includes oxycodone 5/325. He has run out of these thought and requests a new prescription, which I placed for 7 days. He denies shortness of breath or cough, new headache or visual disturbance, leg weakness or pain. PHYSICAL EXAMINATION: Weight 89 kg, temperature 97, blood pressure 109/79, heart rate 131 (this is chronic over years), respiratory rate 22, O2 sat 94%. HEENT: No scleral icterus. Facies symmetric. No facial droop. Oropharynx is clear. RESPIRATORY: Clear lungs to auscultation bilaterally, anteriorly and posteriorly. CARDIAC: S1-S2, tachy, regular. ABDOMEN: Soft, nontender, nondistended. No hepatosplenomegaly or mass. EXTREMITIES: No asymmetry or edema. MUSCULOSKELETAL: No tenderness to percussion along the spinal column. There is some discomfort with moving the right arm, but no arm asymmetry or swelling. NEUROLOGIC: Cranial nerves II-XII grossly intact, sensation symmetric and intact throughout the body. Muscle strength 5/5 throughout flexor, extensor, upper and lower extremities, wrists, antecubital, shoulder, hips, knees, ankles. DTRs 2+ intact and symmetric bilaterally. IMPRESSION: Aggressive metastatic early recurrence of adenocarcinoma of lung one month after completing adjuvant chemotherapy with visceral skeletal and spinal involvement, symptomatic with right shoulder pain and radicular pain syndrome involving right arm, no focal weakness on neurologic exam, status post one cycle of carboplatin/pemetrexed/pembrolizumab with PD-L1 tumor proportion score relatively low. PLAN: 1. Dexamethasone 4 mg t.i.d. on a full stomach and daily Prilosec. 2. Stat radiation oncology referral. The patient will see Dr. Aviles today. 3. Brain MRI with Gadolinium, rule out intracranial metastases. 4. Return to clinic 04/30/2018. The patient was scheduled for cycle two treatment on that day; assuming start of palliative radiation will hold this, but I can reassess him and make sure his pain is under control. If needed will refer him to palliative care, but the acute issue remains whether there is intracranial disease and getting his spinal compressing lesions under control. The patient and his thanked me for today's followup. I answered all their questions. They expressed understanding. TIME STATEMENT: 40 minutes [id number] with the patient, more than 50% involving counseling regarding the nature of the spread of disease, risk of spinal cord compressing lesion, need for radiotherapy and steroids, and answering the patient's questions. Electronically Signed by Shereen Crabtree MD 04/25/2019 06:50 P DD: Shereen Crabtree MD 04/24/2019 07:04 P DT: maye 04/25/2019 12:35 P CC: MD Angel Damon MD David Rechlin, , [facility]
[~2019-04-30] VITALS: Ht 175.3 cm; Wt 88.1 kg
[~2019-04-30 07:59] MED LIST changes: +ACETAMINOPHEN 650 MG PO PO ONE; +CARBOPLATIN IV ONE; +CYANOCOBALAMIN 1,000MCG/ML VIAL (J3420) IM ONE; +FAMOTIDINE 20 MG IV IV ONE; +FOSAPREPITANT PERIPHERAL LINE 30 MIN INFUSION (PREMIX) IV ONE; +FOSAPREPITANT PERIPHERAL LINE 30 MIN INFUSION IV ONE; -LISI10TA4; +LISI10TA4 PO; +NS 1,000 ML IV ONE; +NS IV ONE; +PACLITAXEL IV ONE; +PALONOSETRON 250 MCG IV IV ONE; +PEGFILGRASTIM 6MG/0.6ML ONPRO KIT (J2505 PER 6MG) (FOR ONCOLOGY) SC ONE; +PEMBROLIZUMAB OVER 30 MINUTES IV ONE; +PEMETREXED DISODIUM IV ONE; +PERCOCET 5MG/325MG TAB PO ONE; +SODIUM CHLORIDE 0.9% INJ 10 ML SYR IV PRN; +[UNRECOGNIZED DRUG - REMARK] As Ordered ONE; +dexameTHASONE 10 MG IV IV ONE; +dexameTHASONE 12 MG IV IV ONE; +dexameTHASONE 20 MG IV IV ONE; +diphenhydrAMINE 25 MG IV IV ONE; +diphenhydrAMINE 50 MG IV IV ONE
[2019-04-30] MEDS ORDERED: SODIUM CHLORIDE 0.9% INJ 10 ML SYR IV PRN (08:00)
[2019-04-30 08:47] LABS: BASO % 0.1 % (0.0-1.0); EOS % 0.1 % (0.0-3.0); HEMATOCRIT 40.1 % (42.0-52.0); LYMPH # 0.9 10^3/uL (1.5-5.0); LYMPH % 6.6 % (24.0-44.0); MEAN CORPUSCULAR HEMOGLOBIN 29.3 pg (27.0-33.0); MEAN CORPUSCULAR HGB CONC 32.4 g/dl (32.0-36.5); MEAN CORPUSCULAR VOLUME 90.5 fl (80.0-96.0); MONO # 1.2 10^3/uL (0.0-0.8); MONO % 9.1 % (0.0-5.0); NEUTROPHILS # 11.1 10^3/uL (1.5-8.5); NEUTROPHILS % 83.1 % (36.0-66.0); PLATELET COUNT, AUTOMATED 228 10^3/uL (150-450); RED BLOOD COUNT 4.43 10^6/uL (4.30-6.10); WHITE BLOOD COUNT 13.4 10^3/uL (4.0-10.0)
[2019-04-30] MEDS ORDERED: FOSAPREPITANT PERIPHERAL LINE 30 MIN INFUSION IV ONE ×2 (09:00)
[2019-04-30] MEDS ORDERED: dexameTHASONE 12 MG IV IV ONE (09:00)
[2019-04-30] MEDS ORDERED: PALONOSETRON 250 MCG IV IV ONE (09:00)
[2019-04-30 09:10] LABS: ALBUMIN 3.1 GM/DL (3.2-5.2); ALT/SGPT 57 U/L (12-78); BILIRUBIN,TOTAL 0.6 MG/DL (0.2-1.0); BLOOD UREA NITROGEN 20 MG/DL (7-18); CARBON DIOXIDE LEVEL 27 MEQ/L (21-32); CHLORIDE LEVEL 98 MEQ/L (98-107); GLOMERULAR FILTRATION RATE > 60.0 (>49); GLUCOSE, FASTING 117 MG/DL (70-100); POTASSIUM SERUM 3.9 MEQ/L (3.5-5.1); SODIUM LEVEL 135 MEQ/L (136-145); TOTAL PROTEIN 7.1 GM/DL (6.4-8.2)
[2019-04-30] MEDS ORDERED: PEMBROLIZUMAB OVER 30 MINUTES IV ONE ×2 (10:00)
[2019-04-30] MEDS ORDERED: PEMETREXED DISODIUM IV ONE (10:30)
[2019-04-30] MEDS ORDERED: NS IV ONE ×2 (10:30→10:40)
[2019-04-30] MEDS ORDERED: CARBOPLATIN IV ONE (10:40)
[2019-04-30] MEDS ORDERED: PERCOCET PO ×2 (16:04→16:36)
--- NOTE | 2019-05-01 10:38 | RADONC ---
RADIATION ONCOLOGY PROGRESS NOTE DATE OF SERVICE: 04/30/2019 CHART NUMBER: [id number] Mr. Mcdonnell was taken to the linear accelerator today and underwent his first fraction of radiation to his cervical spine. It was tolerated without difficulty or discomfort. The patient overall is been doing well. His review of systems is positive for continued neck pain but is otherwise noncontributory. Denies nausea, vomiting, fevers, chills, night sweats, diplopia, headaches, anxiety or depression, anorexia, weight loss, visual disturbances, chest pain, urinary or bowel difficulties, bone pain, or neurological problems. PHYSICAL EXAMINATION Clearly, there was no evidence of radiation change present since this was his first fraction. Great care was undertaken to avoid overlap with the previous field. A gap calculation was done with the calculation point at 10 cm, 3 cm past the prescription point, thereby adding an extra measure of safety. In addition, we used a half beam block on the upper field. Mr. Mcdonnlel will continue radiation as scheduled.
== END 2019-04-30 08:00 | disposition home or self-care (01) ==
LOC: M ONCM 07:59
PROVIDERS: ATTEND Internal Medicine Hematology & Oncology
DX: C34.11 Malignant neoplasm of upper lobe, right bronchus or lung (principal); C77.8 Secondary and unspecified malignant neoplasm of lymph nodes of multiple regions; J44.9 Chronic obstructive pulmonary disease, unspecified; I10 Essential (primary) hypertension; Z91.030 Bee allergy status
CPT/HCPCS: 36591; 80053; 82378; 83615; 84439; 84443; 85027; 86300; 87040; 96367; 96372; 96375; 96377; 96413; 96415; 96417; G0463; J1100; J1200; J1453; J1642; J2469; J2505; J3420; J9045; J9267; J9271; J9305

== ENCOUNTER → 2019-05-03 | Outpatient (CLI) | payer OTHER ==
[~2019-05-03] MED LIST changes: -ACETAMINOPHEN 650 MG PO PO ONE; -CARBOPLATIN IV ONE; -CYANOCOBALAMIN 1,000MCG/ML VIAL (J3420) IM ONE; -FAMOTIDINE 20 MG IV IV ONE; -FOSAPREPITANT PERIPHERAL LINE 30 MIN INFUSION (PREMIX) IV ONE; -FOSAPREPITANT PERIPHERAL LINE 30 MIN INFUSION IV ONE; +GABA-843 PO; -NS 1,000 ML IV ONE; -NS IV ONE; -PACLITAXEL IV ONE; -PALONOSETRON 250 MCG IV IV ONE; -PEGFILGRASTIM 6MG/0.6ML ONPRO KIT (J2505 PER 6MG) (FOR ONCOLOGY) SC ONE; -PEMBROLIZUMAB OVER 30 MINUTES IV ONE; -PEMETREXED DISODIUM IV ONE; -PERCOCET 5MG/325MG TAB PO ONE; +PRIL20TA2 PO; +PROHANCE 279.3MG/ML 15ML VIAL (A9576) As Ordered ONE; +PROHANCE 279.3MG/ML 5ML VIAL (A9576) As Ordered ONE; -SODIUM CHLORIDE 0.9% INJ 10 ML SYR IV PRN; -[UNRECOGNIZED DRUG - REMARK] As Ordered ONE; -dexameTHASONE 10 MG IV IV ONE; -dexameTHASONE 12 MG IV IV ONE; -dexameTHASONE 20 MG IV IV ONE; -diphenhydrAMINE 25 MG IV IV ONE; -diphenhydrAMINE 50 MG IV IV ONE
--- NOTE | 2019-05-04 08:22 | REP ---
INDICATION: NSCLC ?metastases PROCEDURE: MRI brain with and without contrast. Axial T1, T2, FLAIR, diffusion images obtained. Sagittal, coronal and axial T1 post contrast images obtained. COMPARISON STUDIES: No prior similar studies FINDINGS: No evidence of restricted diffusion to suggest acute infarction. No gradient-echo susceptibility to suggest hemorrhage. The ventricles and extra-axial CSF spaces are within normal limits. No mass effect or midline shift. No abnormal fluid collections. Paranasal sinuses and mastoid air cells appear unremarkable. IMPRESSION: No mass lesion or abnormal enhancement. No findings to suggest metastatic disease to brain or calvarium. Electronically Signed by Felice Erickson MD 05/04/2019 08:13 A
== END ==
LOC: M RAD 17:19
PROVIDERS: ATTEND Internal Medicine Medical Oncology
DX: C34.90 Malignant neoplasm of unspecified part of unspecified bronchus or lung (principal)
CPT/HCPCS: 70553; A9576

== ENCOUNTER 2019-05-04 10:13 | Outpatient (RCR) | payer OTHER ==
--- NOTE | 2019-04-30 16:24 | RADONC ---
RADIATION ONCOLOGY SIMULATION NOTE DATE: 04/27/2019 CHART NUMBER: [id number] SIMULATION NOTE: Mr. Cole was taken to the CT scan for CT simulation of the cervical spine field. CT was accomplished without difficulty or discomfort. Radiation treatment planning is underway and radiation treatments will begin subsequently. An immobilization device including a mask was made in order to make sure of the accuracy of this treatment. I was physically present throughout the course of CT simulation. Great care will be undertaken to avoid an overlap with his previously treated field.
[~2019-05-04 10:13] MED LIST changes: -GABA-843 PO; -PRIL20TA2 PO; -PROHANCE 279.3MG/ML 15ML VIAL (A9576) As Ordered ONE; -PROHANCE 279.3MG/ML 5ML VIAL (A9576) As Ordered ONE
[2019-05-04] MEDS ORDERED: GABA-843 PO (11:20)
[2019-05-04] MEDS ORDERED: DEXA4TA PO (11:20)
[2019-05-04] MEDS ORDERED: PRIL20TA2 PO (13:48)
--- NOTE | 2019-05-07 11:47 | RADONC ---
RADIATION ONCOLOGY PROGRESS NOTE DATE OF SERVICE: 05/07/2019 CHART NUMBER: [id number] Mr. Mcdonnell was admitted for sepsis and remains as an inpatient with pneumonia. In light of this, he remains on rest. He had a total dose to the C-spine of 1200 cGy of 3000 cGy. We will continue to follow him closely and resume radiation as soon as possible.
== END 2019-05-08 ==
LOC: M ONCR 10:13
PROVIDERS: ATTEND Radiology Radiation Oncology
DX: C79.51 Secondary malignant neoplasm of bone (principal)

== ENCOUNTER 2019-05-04 10:41 | Inpatient (IN) | payer OTHER ==
[~2019-05-04] VITALS: Ht 175.3 cm; Wt 86.5 kg
[2019-05-04] MEDS ORDERED: DEXA4TA PO (11:20)
[2019-05-04] MEDS ORDERED: GABA-843 PO (11:20)
[2019-05-04 11:22] LABS: BASO # 0.1 10^3/uL (0.0-0.2); BASO % 0.2 % (0.0-1.0); LYMPH # 0.5 10^3/uL (1.5-5.0); LYMPH % 1.9 % (24.0-44.0); MEAN CORPUSCULAR HEMOGLOBIN 29.4 pg (27.0-33.0); MEAN CORPUSCULAR HGB CONC 32.6 g/dl (32.0-36.5); MEAN CORPUSCULAR VOLUME 90.3 fl (80.0-96.0); MONO # 1.2 10^3/uL (0.0-0.8); MONO % 4.7 % (0.0-5.0); NEUTROPHILS # 23.9 10^3/uL (1.5-8.5); NEUTROPHILS % 91.7 % (36.0-66.0); PLATELET COUNT, AUTOMATED 169 10^3/uL (150-450); RED BLOOD COUNT 4.76 10^6/uL (4.30-6.10)
[2019-05-04 11:26] LABS: INR 1.14; PROTHROMBIN TIME 14.3 SECONDS (11.8-14.0)
[2019-05-04 11:27] LABS: PARTIAL THROMBOPLASTIN TIME 25.8 SECONDS (25.0-38.4)
--- NOTE | 2019-05-04 12:09 | REP ---
CHEST, SINGLE VIEW: Single view of the chest is performed. COMPARISON: 01/06/2019. There is moderate elevation of the right hemidiaphragm unchanged. Patchy bilateral infiltrates are seen mainly in the lower lung zones. Focal subcentimeter nodular opacity is seen in the mid right lung. There appear to be a few nodular densities in the left lung base with one inferiorly laterally measuring about 2.7 cm in diameter. The heart does not appear to be significantly enlarged. Right central venous catheter is again noted. IMPRESSION: Bilateral infiltrates with suspected underlying pulmonary nodules more so on the left than on the right. Electronically Signed by Bebo Daily MD 05/09/2019 09:42 A
[2019-05-04 12:25] LABS: BLOOD UREA NITROGEN 34 MG/DL (7-18); CARBON DIOXIDE LEVEL 35 MEQ/L (21-32); CHLORIDE LEVEL 95 MEQ/L (98-107); CREATININE FOR GFR 1.02 MG/DL (0.70-1.30); GLOMERULAR FILTRATION RATE > 60.0 (>49); GLUCOSE, FASTING 161 MG/DL (70-100); POTASSIUM SERUM 4.7 MEQ/L (3.5-5.1); SODIUM LEVEL 131 MEQ/L (136-145)
[2019-05-04 12:26] LABS: ALT/SGPT 60 U/L (12-78); BILIRUBIN,DIRECT 0.3 MG/DL (0.0-0.2); BILIRUBIN,TOTAL 0.9 MG/DL (0.2-1.0); CALCIUM LEVEL 8.6 MG/DL (8.8-10.2); CK-MB VALUE MASS 4.5 NG/ML (<3.6); CPK CREATINE PHOSPHOKINASE 75 U/L (39-308); TOTAL PROTEIN 6.5 GM/DL (6.4-8.2)
[2019-05-04 12:27] LABS: C REACTIVE PROTEIN QUANTITATIV 5.44 MG/DL (0.00-0.30); LIPASE 60 U/L (73-393); NT-PRO BNP 1477 PG/ML (<125); TROPONIN I 0.08 NG/ML (< 0.10)
[2019-05-04] MEDS ORDERED: PIPERACILLIN/TAZOBACTAM SOD 3.375 GM in D5W MINI-BAG PLUS 50 ML IV ONE (12:30)
[2019-05-04] MEDS ORDERED: NS 1,000 ML IV ONE (12:30)
[2019-05-04] MEDS ORDERED: ISOVUE-370 76% 100ML VIAL (Q9967) As Ordered ONE (12:32)
[2019-05-04] MEDS: MORPHINE 2 MG/ML 1ML VIAL (J2270) IV PRN ×2 (13:38→22:07)
--- NOTE | 2019-05-04 13:43 | REP ---
CT PULMONARY ANGIOGRAM: With IV contrast. HISTORY: Hemoptysis. COMPARISON STUDIES: Comparison chest CT study August 07, 2018. CONTRAST DOSE: 75 mL of Isovue [address] TECHNIQUE: Helical scanning is acquired and overlapping 1.5 mm and contiguous 3 mm axial images are reformatted. In addition, maximum intensity projection and multiplanar re-formation images are generated in sagittal and coronal imaging projections. CT PULMONARY ANGIOGRAPHIC FINDINGS: There is good opacification of the pulmonary arterial tree. There is no CT evidence of pulmonary embolus. Thoracic aorta shows no evidence of aneurysm or dissection. There are innumerable rounded lung nodules in a pattern consistent with hematogenous metastasis. These nodules range in size up to 2.6 cm in greatest diameter. There are also patchy areas of interstitial infiltrate bilaterally most heavily involving the left lower lobe, left upper lobe, and the base of the remaining right lung. The patient is status post thoracotomy and partial pneumonectomy on the right. There is left hilar adenopathy. There is right hilar lymphadenopathy. There is a confluent nodular opacity anteriorly in the left upper lobe measuring 5.8 cm in greatest diameter. No pericardial effusion is seen. There is a small quantity of right pleural fluid. No adrenal lesion is observed. An accessory splenule is noted in the left upper quadrant. There is an ill-defined low density lesion in the right lobe of the liver. This is new from the August 07, 2018 study and is compatible with a liver metastasis. This measures 4.4 cm. There are multiple old rib fractures on the right. No definite bony destructive lesion. IMPRESSION: No CT evidence of pulmonary embolus. There is widespread pulmonary metastatic pattern and interstitial infiltrate pattern in the lung mena. Bilateral hilar adenopathy is seen. There is a mass in the right lobe of the liver consistent with a liver metastasis. Electronically Signed by Justin Orosco MD 05/04/2019 08:46 P
[2019-05-04] MEDS ORDERED: PRIL20TA2 PO (13:48)
[2019-05-04] MEDS ORDERED: VANCOMYCIN HCL 1,310 MG in IV FLUID PLACE HOLDER 1 EA IV SCH (15:00)
[2019-05-04] MEDS ORDERED: EMLA CREAM 5GM (LIDOCAINE/PRILOCAINE) TOP SCH (15:00)
[2019-05-04] MEDS ORDERED: ACETAMINOPHEN TAB 650MG DOSE (2X325MG) PO PRN (15:00)
[2019-05-04] MEDS ORDERED: FLUTICASONE PROP 0.05% NASAL SPRAY 16 GM (FLONASE) PRN (15:00)
[2019-05-04 15:55] VITALS: BP 134/95
--- NOTE | 2019-05-04 15:58 | HPEPDOC ---
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 Aviles for tachycardia, shortness of breath, decreased O2 saturation and hemoptysis. He is status post 10 rounds of chemotherapy, last chemotherapy was discontinued right before [place] and started on radiation therapy metastatic disease. According to patient, he was scheduled for his routine radiation treatment today. When he presented, he developed shortness of breath, tachycardia, without chest pain or chest pressure. Patient also reported hemoptysis that has been going on for several days. He reports blood-tinged sputum, denies any fevers, denies any chills, denies any body aches, denies any headache, denies any nausea or vomiting, does admit to occasional diarrhea. Patient admits to chronic back pain and right-sided pain. He also admits to significant weight loss since beginning therapy. He admits to dysphagia, On initial evaluation in the emergency room. Patient was afebrile, tachypneic, hypotensive, and saturating at 82% on nasal cannula. Hospitalist team was called for admission for possible pneumonia, and desaturation, hypotension, tachycardia and hemoptysis. PAST MEDICAL HISTORY: Hypertension, history of pneumonia, adenocarcinoma of the lungs with metastases PAST SURGICAL HISTORY: right upper middle lobe lobectomy and mediastinal node dissection Ankle surgery, Teeth removal SOCIAL HISTORY: [id number] history, patient stopped smoking in 2013, denies alcohol. Denies illicit drugs FAMILY HISTORY: Family history significant for cancer of the bone in father's side. ALLERGIES: Please see below. REVIEW OF SYSTEMS: CONSTITUTIONAL: No fevers, denies chills, positive for weight loss loss, denies lethargy HEENT: No rhinorrhea, no itchy eyes, no congesion, No tonsilor exudates, positive for dysphasia CARDIOVASCULAR: No murmurs no palpitations and arrhythmias RESPIRATORY: Positive shortness of breath, along with decreased O2 saturation GASTROINTESTINAL: No nausea, no vomiting, no difficulty swallowing, no pain with eating, occasional diarrhea HEMATOLOGICAL: No bleeding GENITOURINARY:No Issues PE GENERAL APPEARANCE: Nontoxic appearing gentleman, resting in bed, speaking in full sentences, accompanied by his SKIN: Slightly pale, nonjaundiced in appearance ENT: Neck is supple, no blood in oral mucosa LUNGS: Decreased air entry bilaterally, no wheezing, no rhonchi, no rales, HEART: Normal S1, S2. Tachycardic without murmur, rubs or gallops ABDOMEN: Soft. No masses. Bowel sounds are present. EXTREMITIES: Moves all extremities equally. No gross deformities. PULSES: 2+ upper and lower extremity . VIEW OF SYSTEMS: HOME MEDICATIONS: Please see below. LABORATORY DATA: See below. IMAGING: Chest XRAY: Bilateral infiltrates with suspected underlying pulmonary nodules more so on the left than on the right CT Chest: No CT evidence of pulmonary embolus. There is widespread pulmonary metastatic pattern and interstitial infiltrate pattern in the lung mena. Bilateral hilar adenopathy is seen. There is a mass in the right lobe of the liver consistent with a liver metastasis. MICROBIOLOGY: Please see below. ASSESSMENT: Patient is a 64 year-old gentleman with past medical history significant for lung cancer with metastases, presenting with pneumonia, shortness of breath, decreased saturation, hemoptysis, and tachycardia. He'll be admitted and treated for pneumonia. PLAN: #Sepsis, secondary to health care associated pneumonia -Will start patient on vancomycin, cefepime, Flagyl for empiric coverage. -Sputum culture ordered cultured ordered -Blood cultures ordered -Presenting lactic acid of 3.0. Repeat 4 hours -IV fluids on board -Oxygen therapy on board -BIPAP at night -Monitor for fever, trending white count Lung cancer -Adenocarcinoma of the lungs with metastases to spine, patient's no longer candidate for chemotherapy. Is currently undergoing radiation therapy for metastases. Patient does not feel like he is ready to surrender on treatment options. He is aware that with treatment. He has approximately 3-6 months before . -He is currently DNI and DNR. Does not wish to begin hospice process at the moment Decreased TSH, secondary to acute illness, -Will investigate with free T4 and T3 Dysphia speech therapy evaluation, aspiration protocol Hypertension -Continue home meds DVT prophylaxis -Lovenox Vital Signs Vital Signs Date Time Temp Pulse Resp B/P (MAP) Pulse Ox O2 Delivery O2 Flow Rate FiO2 05/04/19 15:30 106 20 127/78 (94) 92 Venturi Mask 50 05/04/19 15:27 98.7 Laboratory Data Labs 24H Laboratory Tests 2 05/04/19 11:00: Immature Granulocyte % (Auto) 1.5, Neutrophils (%) (Auto) 91.7H, Lymphocytes (%) (Auto) 1.9L, Monocytes (%) (Auto) 4.7, Eosinophils (%) (Auto) 0.0, Basophils (%) (Auto) 0.2, Neutrophils # (Auto) 23.9H, Lymphocytes # (Auto) 0.5L, Monocytes # (Auto) 1.2H, Eosinophils # (Auto) 0.0, Basophils # (Auto) 0.1, Nucleated Red Blood Cells % (auto) 0.0, Prothrombin Time 14.3H, Prothromb Time International Ratio 1.14, Activated Partial Thromboplast Time 25.8, Anion Gap 1L, Glomerular Filtration Rate > 60.0, Lactic Acid Level 3.0*H, Calcium Level 8.6L, Total Bilirubin 0.9, Direct Bilirubin 0.3H, Aspartate Amino Transf (AST/SGOT) 25, Alanine Aminotransferase (ALT/SGPT) 60, Alkaline Phosphatase 94, Total Creatine Kinase 75, Creatine Kinase MB 4.5H, Creatine Kinase MB Relative Index 6.00H, Troponin I 0.08, C-Reactive Protein, Quantitative 5.44H, EK-Qcf-Y-Type Natriuretic Peptide 1477H, Total Protein 6.5, Albumin 3.0L, Albumin/Globulin Ratio 0.86L, Lipase 60L, Thyroid Stimulating Hormone (TSH) 0.330L 05/04/19 11:41: POC pH (Misc Panel) 7.496H, POC Base Excess (Misc Panel) 6.0H, POC Saturated Percent O2 (Misc) 95, POC pO2 (Misc Panel) 68.0L, POC pCO2 (Misc Panel) 38.3, POC HCO3 (Misc Panel) 29.6H, POC Total CO2 (Misc Panel) 31.0H CBC/BMP Laboratory Tests 05/04/19 11:00 Microbiology Microbiology 05/04/19 Blood Culture, Received Pending 05/04/19 Blood Culture, Received Pending Home Medications Scheduled Dexamethasone (Dexamethasone) 4 Mg Tablet, 4 TAB PO TID Folic Acid (Folic Acid) 1 Mg Tablet, 1 TAB PO DAILY Gabapentin (Gabapentin) 300 Mg Capsule, 300 MG PO BID Lidocaine/Prilocaine (Lidocaine-Prilocaine Cream) 2.5%/2.5% Cream..g., 1 DOSE TOP ASDIRECTED Apply dime size to port area. Do not rub in, cover with cellophane. Leave the cellophane in place until the nurse takes it off Lisinopril (Lisinopril) 10 Mg Tablet, 10 MG PO DAILY Multivitamin (Multivitamins) 1 Each Capsule, 1 CAP PO DAILY Omeprazole Magnesium (Prilosec Otc) 20 Mg Tablet.dr, 20 MG PO DAILY Ondansetron (Ondansetron Odt) 8 Mg Tab.rapdis, 8 MG PO TID for nausea/vomiting Scheduled PRN Albuterol Sulfate (Proair Hfa) 8.5 Gm Hfa.aer.ad, 2 PUFF INH QID PRN for SHORTNESS OF BREATH Fluticasone Propionate (Flonase Allergy Relief) 9.9 Ml [place].susp, 2 SPRAY NA DAILY PRN for NASAL CONGESTION Oxycodone/Acetaminophen (Oxycodone-Acetaminophen 5-325) 1 Each Tablet, 1 TAB PO 1-2 tabs q 4 hrs prn PRN for pain Allergies Coded Allergies: SEASONAL ALLERGIES (Verified Allergy, Unknown, 10/26/18) bee venom protein (honey bee) (Verified Allergy, Unknown, 10/26/18) DAVID HIGUERA DO May 04, 2019 15:57
[2019-05-04] MEDS: ONDANSETRON 4 MG ORAL DISINTEGRATING TAB (Q0162 PER 1MG) PO SCH ×2 (16:00→21:59)
[2019-05-04] MEDS: methylPREDNISolone INJ 40 MG/1 ML VIAL (J2920) IV SCH (17:11)
[2019-05-04] MEDS: NS 1,000 ML IV SCH ×2 (17:12→23:10)
[2019-05-04] MEDS: metroNIDAZOLE 500 MG in IV 1 EA IV SCH (17:12)
[2019-05-04] MEDS: PERCOCET 5MG/325MG TAB PO PRN ×2 (17:13→22:27)
[2019-05-04 18:00] VITALS: BP 119/76
[2019-05-04] MEDS: CEFEPIME HCL 2 GM in D5W MINI-BAG PLUS 50 ML IV SCH (19:51)
[2019-05-04] MEDS ORDERED: VANCOMYCIN HCL 1,000 MG, VIAL MATE ADAPTER 1 EACH in D5W 250 ML IV ONE ×2 (20:00→21:00)
[2019-05-04] MEDS: GABAPENTIN 300 MG CAP PO SCH (21:59)
[2019-05-04 22:00] VITALS: BP 116/68
[2019-05-04 23:39] VITALS: O2SAT 94
[2019-05-05] MEDS: methylPREDNISolone INJ 40 MG/1 ML VIAL (J2920) IV SCH ×3 (00:17→16:22)
[2019-05-05] MEDS: metroNIDAZOLE 500 MG in IV 1 EA IV SCH ×3 (00:17→16:22)
[2019-05-05 02:00] VITALS: BP 129/78
[2019-05-05] MEDS: CEFEPIME HCL 2 GM in D5W MINI-BAG PLUS 50 ML IV SCH ×3 (02:28→17:50)
[2019-05-05] MEDS ORDERED: FUROSEMIDE 20 MG/2 ML VIAL (J1940) IV ONE ×2 (03:00→11:00)
[2019-05-05] MEDS: PERCOCET 5MG/325MG TAB PO PRN ×4 (04:34→22:16)
[2019-05-05 05:19] LABS: FREE T3 2.4 PG/ML (2.2-4.0); FREE T4 1.34 NG/DL (0.76-1.46)
[2019-05-05 06:00] VITALS: BP 130/82
[2019-05-05 06:05] LABS: HEMOGLOBIN 13.1 g/dl (13.5-17.5); MEAN CORPUSCULAR HEMOGLOBIN 29.1 pg (27.0-33.0); MEAN CORPUSCULAR VOLUME 91.1 fl (80.0-96.0); PLATELET COUNT, AUTOMATED 134 10^3/uL (150-450); WHITE BLOOD COUNT 20.2 10^3/uL (4.0-10.0)
[2019-05-05 06:29] LABS: BLOOD UREA NITROGEN 29 MG/DL (7-18); CALCIUM LEVEL 8.8 MG/DL (8.8-10.2); CARBON DIOXIDE LEVEL 27 MEQ/L (21-32); CHLORIDE LEVEL 94 MEQ/L (98-107); CREATININE FOR GFR 0.79 MG/DL (0.70-1.30); GLOMERULAR FILTRATION RATE > 60.0 (>49); GLUCOSE, FASTING 151 MG/DL (70-100); POTASSIUM SERUM 4.6 MEQ/L (3.5-5.1); SODIUM LEVEL 131 MEQ/L (136-145)
[2019-05-05] MEDS: FOLIC ACID 1 MG TAB PO SCH (08:55)
[2019-05-05] MEDS: ENOXAPARIN 40 MG/0.4 ML SYRINGE (J1650) SC SCH (08:56)
[2019-05-05] MEDS: GABAPENTIN 300 MG CAP PO SCH ×3 (08:56→21:47)
[2019-05-05] MEDS: lisinopriL 10 MG TAB PO SCH (08:56)
[2019-05-05] MEDS: ONDANSETRON 4 MG ORAL DISINTEGRATING TAB (Q0162 PER 1MG) PO SCH (08:57)
[2019-05-05] MEDS ORDERED: VANCOMYCIN HCL 500 MG in D5W MINI-BAG PLUS 100 ML IV SCH (09:00)
[2019-05-05] MEDS ORDERED: ONDANSETRON 4 MG ORAL DISINTEGRATING TAB (Q0162 PER 1MG) PO PRN (09:15)
--- NOTE | 2019-05-05 09:54 | ECGEPIP ---
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
--- NOTE | 2019-05-05 09:56 | IPNPDOC ---
Text Note Date of Service The patient was seen on 05/05/19. NOTE SUBJECTIVE: Patient was examined bedside, he was accompanied by his and his family. Overnight his fluids was discontinued due to fluid overload status. He was given 20 mg grams of IV Lasix. He denies cough, no shortness of breath denies any chest pain today. He does complain of significant arm pain on the right side as well as back pain. OBJECTIVE: PHYSICAL EXAMINATION: GENERAL APPEARANCE: Elderly gentleman, nontoxic appearing, resting in bed. SKIN: Slightly pale in color, no jaundice, no icterus, no bruising, no bleeding LUNGS: Diminished breath sounds, no wheezing, no rhonchi, slightly coarse breath sounds throughout lung emna, moderate rales HEART: Normal S1, S2. No murmurs, no rubs, no gallops EXTREMITIES: Moves all extremities equally. No gross deformities. PULSES: 2+ upper and lower extremity . LABORATORY DATA: Please see below. PLAN: #Sepsis, secondary to care associated pneumonia -Continue vancomycin, cefepime, Flagyl for empiric coverage. -Sputum positive for many gram positive cocci in pairs, chains and clusters- Will continue emperic coverage until cultures are available -Blood cultures Pending -Lactic acid has normalized -Oxygen therapy, -Down trending WBC -Repeat chest xray tomorrow AM -D/C IV fluids due to volume overload, status post Lasix 20 mg 2. #Chronic Pain secondary to metastatic carcinoma of the lungs. -Oxycodone 2 tabs when necessary every 6 hours -Increase patient's gabapentin from twice a day to 300 mg 3 times a day -Monitor for respiratory compromise #Lung cancer -Adenocarcinoma of the lungs with metastases to spine, patient's no longer candidate for chemotherapy. Is currently undergoing radiation therapy for metastases. Patient does not feel like he is ready to surrender on treatment options. He is aware that with treatment. He has approximately 3-6 months before . -He is currently DNI and DNR. Does not wish to begin hospice process at the moment #Decreased TSH, secondary to acute illness, -Patient has normal Free T4, #Dysphia speech therapy evaluation, aspiration protocol #Elevated Glucose -Patient does not gray #Hypertension -Continue home meds #DVT prophylaxis -Lovenox VS,Fishbone, I+O VS, Fishbone, I+O Laboratory Tests 05/04/19 11:00 05/05/19 05:32 Vital Signs Date Time Temp Pulse Resp B/P (MAP) Pulse Ox O2 Delivery O2 Flow Rate FiO2 05/05/19 08:56 130/82 05/05/19 06:00 96.8 105 16 95 High Flow Cannula 15.0 05/04/19 20:00 50 I&O- Last 24 Hours up to 6 AM 05/05/19 05:59 Intake Total 3800 ml Output Total 950 ml Balance 2850 ml DAVID HIGUERA DO May 05, 2019 09:56
[2019-05-05 10:00] VITALS: BP 120/85
[2019-05-05] MEDS: VANCOMYCIN HCL 750 MG, VIAL MATE ADAPTER 1 EACH in D5W 250 ML IV SCH ×2 (12:49→21:47)
[2019-05-05 14:00] VITALS: BP 132/73
[2019-05-05 18:00] VITALS: BP 133/70
[2019-05-05 22:00] VITALS: BP 123/73
[2019-05-06] MEDS: metroNIDAZOLE 500 MG in IV 1 EA IV SCH ×2 (00:35→09:50)
[2019-05-06] MEDS: methylPREDNISolone INJ 40 MG/1 ML VIAL (J2920) IV SCH ×2 (00:35→08:21)
[2019-05-06] MEDS: CEFEPIME HCL 2 GM in D5W MINI-BAG PLUS 50 ML IV SCH ×3 (01:51→17:50)
[2019-05-06 02:00] VITALS: BP 126/81
[2019-05-06] MEDS: ALBUTEROL 90 MCG/ACT 8GM HFA INHALER INH PRN ×2 (03:15→17:37)
[2019-05-06] MEDS: PERCOCET 5MG/325MG TAB PO PRN ×3 (04:53→17:51)
[2019-05-06 06:00] VITALS: BP 148/81
[2019-05-06 06:23] LABS: HEMATOCRIT 40.5 % (42.0-52.0); HEMOGLOBIN 13.7 g/dl (13.5-17.5); MEAN CORPUSCULAR HEMOGLOBIN 30.6 pg (27.0-33.0); MEAN CORPUSCULAR HGB CONC 33.8 g/dl (32.0-36.5); MEAN CORPUSCULAR VOLUME 90.4 fl (80.0-96.0); PLATELET COUNT, AUTOMATED 144 10^3/uL (150-450); RED BLOOD COUNT 4.48 10^6/uL (4.30-6.10); WHITE BLOOD COUNT 25.7 10^3/uL (4.0-10.0)
[2019-05-06 06:45] LABS: BLOOD UREA NITROGEN 27 MG/DL (7-18); CALCIUM LEVEL 8.5 MG/DL (8.8-10.2); CARBON DIOXIDE LEVEL 31 MEQ/L (21-32); CHLORIDE LEVEL 93 MEQ/L (98-107); CREATININE FOR GFR 0.75 MG/DL (0.70-1.30); GLOMERULAR FILTRATION RATE > 60.0 (>49); GLUCOSE, FASTING 129 MG/DL (70-100); POTASSIUM SERUM 4.8 MEQ/L (3.5-5.1); SODIUM LEVEL 131 MEQ/L (136-145)
[2019-05-06] MEDS ORDERED: VANCOMYCIN HCL 500 MG in D5W MINI-BAG PLUS 100 ML IV SCH (08:00)
[2019-05-06] MEDS: FOLIC ACID 1 MG TAB PO SCH (08:22)
[2019-05-06] MEDS: GABAPENTIN 300 MG CAP PO SCH ×3 (08:22→20:18)
[2019-05-06] MEDS: lisinopriL 10 MG TAB PO SCH (08:22)
[2019-05-06] MEDS: ENOXAPARIN 40 MG/0.4 ML SYRINGE (J1650) SC SCH (08:23)
--- NOTE | 2019-05-06 08:34 | REP ---
CHEST X-RAY: TWO VIEWS. HISTORY: Pneumonia. COMPARISON CHEST X-RAY: May 04, 2019 FINDINGS: Umbbgk-I-Mqzy catheter is again seen. The right hemidiaphragm remains somewhat elevated. Extensive infiltrates and nodular densities persist throughout the lung mena, left more extensively than right. Opacities are somewhat more prominent diffusely. Heart size is unchanged. IMPRESSION: Extensive infiltrates and nodular opacities bilaterally. Electronically Signed by Justin Orosco MD 05/06/2019 08:56 A
--- NOTE | 2019-05-06 09:45 | IPNPDOC ---
Text Note Date of Service The patient was seen on 05/06/19. NOTE TIME OF SERVICE 9:30 AM is a 64-year-old former smoker with a medical history of moderately differentiated ROS1 negative PDL 1 TTS 1% lung adenocarcinoma with metastases to the thoracic and cervical spine, liver status post chemoradiation with carboplatin and paclitaxel and chronic hypertension is admitted for management of sepsis secondary to pneumonia SUBJECTIVE: He reports feeling more short of breath and coughing more today. OBJECTIVE: Temperature 97.2, pulse 104, respiratory rate 26, blood pressure 148/81, pulse oximetry 91% on 15 L via high flow nasal cannula GEN: well nourished / well developed HEENT:NCAT / lips acyanotic / NC in place / mucus membranes moist and pink CVS: Tachycardic/ radial pulses intact LUNGS coarse rhonchi bilaterally ABDOMEN: soft & not tender with palpation MSK/EXTREMITIES: range of motion intact in all 4 extremities NEURO: CN 2-12 are grossly intact / speech is not dysarthric PSYCH: alert and oriented to person place and time/ able to understand and follow all commands LABS: See below ASSESSMENT & PLAN: 1. Sepsis secondary to pneumonia / asthma, early ARDS. He also has metastatic adenocarcinoma of the lungs in his DNI, DNR status The pneumonia may be due to aspiration or obstructive pneumonia in the setting of cancer ? Sputum cultures growing few yeast. Blood cultures negative. He still has high oxygen requirement is tachypneic. Repeat chest x-ray reviewed. It appears as if he is developing early ARDS Plan: DC metro add Zosyn / continue cefepime and vancomycin / switch from high flow nasal cannula to Vapotherm/ this patient is not a candidate for fisher sponge hooking consult because he is DNR/DNI status . We will readdress transitioning to hospice 2. Dysphagia secondary to metastatic adenocarcinoma. The lungs metastases. Swallow eval done on Tuesday did not identify obvious aspiration Plan: Follow up repeat swallow eval in the morning. Continue with regular diet for now 3. Chronic pain secondary to metastasis Plan: Continue gabapentin and oxycodone /switch from Solu-Medrol to home dose of Decadron 4.Chronic hypertension. Plan: Continue with lisinopril DVT PX Lovenox DISPO pending clinical course VS,Fishbone, I+O VS, Fishbone, I+O Laboratory Tests 05/06/19 05:23 Vital Signs Date Time Temp Pulse Resp B/P (MAP) Pulse Ox O2 Delivery O2 Flow Rate FiO2 05/06/19 08:22 148/81 05/06/19 06:00 97.2 104 22 91 High Flow Cannula 15.0 05/04/19 20:00 50 I&O- Last 24 Hours up to 6 AM 05/06/19 06:00 Intake Total 2100 ml Output Total 1325 ml Balance 775 ml EDWIN CANALES MD May 06, 2019 09:45
[2019-05-06 10:00] VITALS: BP 115/84
[2019-05-06] MEDS: VANCOMYCIN HCL 750 MG, VIAL MATE ADAPTER 1 EACH in D5W 250 ML IV SCH ×2 (10:56→20:18)
[2019-05-06] MEDS: PIPERACILLIN/TAZOBACTAM SOD 4.5 GM in D5W MINI-BAG PLUS 100 ML IV SCH ×2 (13:46→17:51)
[2019-05-06 14:00] VITALS: BP 115/85
[2019-05-06 16:40] VITALS: BP 137/84
[2019-05-06] MEDS: dexameTHASONE 4 MG/ML 1ML VIAL (J1100) IV SCH (17:50)
[2019-05-06 20:00] VITALS: BP 131/76
[2019-05-06] MEDS: RAMELTEON 8 MG TAB (ROZEREM) PO SCH (20:18)
[2019-05-06] MEDS: VANCOMYCIN HCL 500 MG in D5W MINI-BAG PLUS 100 ML IV SCH (20:18)
[2019-05-06] MEDS ORDERED: MIRTAZAPINE 7.5MG PER 1/2 TABLET PO PRN (21:00)
[2019-05-07] VITALS (19 sets, daily range): BP systolic 104–133; BP diastolic 67–78; O2SAT 85–92
[2019-05-07] MEDS: PIPERACILLIN/TAZOBACTAM SOD 4.5 GM in D5W MINI-BAG PLUS 100 ML IV SCH ×4 (00:09→18:29)
[2019-05-07] MEDS: PERCOCET 5MG/325MG TAB PO PRN ×4 (00:11→18:29)
[2019-05-07] MEDS: RAMELTEON 8 MG TAB (ROZEREM) PO SCH (00:14)
[2019-05-07] MEDS: CEFEPIME HCL 2 GM in D5W MINI-BAG PLUS 50 ML IV SCH ×2 (01:23→10:26)
[2019-05-07] MEDS: dexameTHASONE 4 MG/ML 1ML VIAL (J1100) IV SCH ×3 (02:00→18:28)
[2019-05-07 06:58] LABS: HEMATOCRIT 41.7 % (42.0-52.0); HEMOGLOBIN 13.5 g/dl (13.5-17.5); MEAN CORPUSCULAR HEMOGLOBIN 29.2 pg (27.0-33.0); MEAN CORPUSCULAR HGB CONC 32.4 g/dl (32.0-36.5); MEAN CORPUSCULAR VOLUME 90.3 fl (80.0-96.0); PLATELET COUNT, AUTOMATED 120 10^3/uL (150-450); RED BLOOD COUNT 4.62 10^6/uL (4.30-6.10); WHITE BLOOD COUNT 23.2 10^3/uL (4.0-10.0)
[2019-05-07 07:22] LABS: BLOOD UREA NITROGEN 35 MG/DL (7-18); CALCIUM LEVEL 8.8 MG/DL (8.8-10.2); CARBON DIOXIDE LEVEL 30 MEQ/L (21-32); CHLORIDE LEVEL 88 MEQ/L (98-107); CREATININE FOR GFR 0.87 MG/DL (0.70-1.30); GLOMERULAR FILTRATION RATE > 60.0 (>49); GLUCOSE, FASTING 126 MG/DL (70-100); POTASSIUM SERUM 4.9 MEQ/L (3.5-5.1); SODIUM LEVEL 126 MEQ/L (136-145)
[2019-05-07] MEDS: VANCOMYCIN HCL 750 MG, VIAL MATE ADAPTER 1 EACH in D5W 250 ML IV SCH ×2 (07:41→19:54)
[2019-05-07] MEDS: GABAPENTIN 300 MG CAP PO SCH ×3 (09:01→19:55)
[2019-05-07] MEDS: lisinopriL 10 MG TAB PO SCH (09:01)
[2019-05-07] MEDS: ENOXAPARIN 40 MG/0.4 ML SYRINGE (J1650) SC SCH (09:01)
[2019-05-07] MEDS: VANCOMYCIN HCL 500 MG in D5W MINI-BAG PLUS 100 ML IV SCH ×2 (09:01→19:54)
[2019-05-07] MEDS: FOLIC ACID 1 MG TAB PO SCH (09:02)
--- NOTE | 2019-05-07 10:34 | IPNPDOC ---
Text Note Date of Service The patient was seen on 05/07/19. NOTE is a 64-year-old former smoker with a medical history of moderately differentiated ROS1 negative PDL 1 TTS 1% lung adenocarcinoma with metastases to the thoracic and cervical spine, liver status post chemoradiation with carboplatin and paclitaxel and chronic hypertension that was admitted for management of sepsis secondary to pneumonia SUBJECTIVE: Patient was examined this morning at bedside. He had no acute complaints. He was afebrile overnight. OBJECTIVE: PHYSICAL EXAMINATION: VITALS: see below GENERAL APPEARANCE: Pleasant gentleman, on supplemental oxygen, alert and oriented, answers questions appropriately SKIN: Slightly pale in color, no jaundice, no icterus, no bruising, no bleeding LUNGS: Decreased breath sounds, with coarse breath sounds throughout lung mena, no wheezing HEART: Normal S1, S2. No murmurs, no rubs, no gallops EXTREMITIES: Moves all extremities equally. No sign of cyanosis ABDOMEN: Soft, nontender, no organomegaly PULSES: 2+ upper and lower extremity . LABS: See below ASSESSMENT & PLAN: 1. Sepsis secondary to aspiration pneumonia vs worsening lung CA - he has underlying asthma, - DNI, DNR status, - Chest xray: 05/07/19: Extensive infiltrates and nodular opacities - WBC # elevated - Sputum cultures growing few yeast. - Currently on vapotherm, patient still has high oxygen requirement due to tachypnea - will downgrade abx to Zosyn alone and switch to doxy with Augmentin tomorrow - Pallative Care Consult & Social work consults have been placed for assistance with discharge planning 2. Dysphagia secondary to metastatic adenocarcinoma. -Swallow eval done on Tuesday did not identify obvious aspiration -Continue with regular diet for now 3. Chronic pain secondary to metastasis -Home dose of Decadron, continue gabapentin and OxyContin, 4.Chronic hypertension. -Continue with lisinopril 5. Asymptomatic Hypovolemic Hyponatremia -Secondary to poor oral intake - will will f/u serum Na, urine Na, urine osmolality and serum osmolality tomorrow to help classify the subtype of hyponatremia -in the meanwhile we encouraged him to increase his oral intake 6. Depression / Insomnia -Plan: Start mirtazapine DVT PX Lovenox DISPO pending clinical course VS,Fishbone, I+O VS, Fishbone, I+O Laboratory Tests 05/07/19 06:30 Vital Signs Date Time Temp Pulse Resp B/P (MAP) Pulse Ox O2 Delivery O2 Flow Rate FiO2 05/07/19 09:01 129/78 05/07/19 08:00 96.3 98 20 90 High Flow Cannula 15.0 05/07/19 02:00 90 I&O- Last 24 Hours up to 6 AM 05/07/19 06:00 Intake Total 1560 ml Output Total 1200 ml Balance 360 ml GME ATTESTATION GME ATTESTATION My faculty preceptor for this patient encounter was physically present during the encounter and was fully available. All aspects of the patient interview, examination, medical decision making process, and medical care plan development were reviewed and approved by the faculty preceptor. The faculty preceptor is aware and concurs with the plan as stated in the body of this note and will attest to such by his/her cosignature. ATTENDING NOTE I examined the patient the patient at 8:15AM and reviewed and edited Dr.Owusu- Ingram's note and agree with the findings as documented. DAVID HIGUERA DO May 07, 2019 10:34 EDWIN CANALES MD May 07, 2019 14:41
[2019-05-07] MEDS ORDERED: SLF 3 ML SYR IV PRN (17:00)
[2019-05-07] MEDS ORDERED: SLF 3 ML SYR IV SCH (22:00)
[2019-05-07] MEDS ORDERED: BISACODYL 10 MG SUPP PR PRN (22:45)
[2019-05-07] MEDS ORDERED: LORazepam 2 MG/ML VIAL (J2060) IV PRN (22:45)
[2019-05-07] MEDS ORDERED: MORPHINE 2 MG/ML 1ML VIAL (J2270) IV PRN (22:45)
--- NOTE | 2019-05-08 02:32 | IPNPDOC ---
Date Seen The patient was seen on 05/08/19. Progress Note I was called at bedside around 2100 for the family wanted to discuss FLOOR CARE TECHNICIAN status for the patient that was not satting appropriately on vapotherm. The and patient were adamant that they did not want him to suffer anymore and would like to their options. They patient was made FLOOR CARE TECHNICIAN at 2240 and he at 0148. VS, I&O, 24H, Fishbone Vital Signs/I&O Vital Signs Date Time Temp Pulse Resp B/P (MAP) Pulse Ox O2 Delivery O2 Flow Rate FiO2 05/07/19 22:59 28 05/07/19 21:00 85 Nasal Cannula 35.0 05/07/19 21:00 95 05/07/19 20:00 96.1 118 104/72 (83) I&O- Last 24 Hours up to 6 AM 05/08/19 06:00 Intake Total 540 ml Output Total 800 ml Balance -260 ml Laboratory Data 24H LABS Laboratory Tests 2 05/07/19 06:30: Nucleated Red Blood Cells % (auto) 0.0, Anion Gap 8, Glomerular Filtration Rate > 60.0, Calcium Level 8.8, Vancomycin Level Trough 14.6 CBC/BMP Laboratory Tests 05/07/19 06:30 Microbiology Microbiology 05/04/19 Gram Stain - Final, Resulted 05/04/19 Sputum Culture - Preliminary, Resulted Staphylococcus Aureus Yeast Like Organism 05/04/19 Blood Culture - Preliminary, Resulted No Growth after 72 hours. All specime... 05/04/19 Blood Culture - Preliminary, Resulted No Growth after 72 hours. All specime... JIM GIRON DO May 08, 2019 02:32
--- NOTE | 2019-05-08 14:50 | DS.PDOC ---
Discharge Summary General Date of Admission May 04, 2019 at 14:38 Date of Discharge May 08 2019 Attending Physician: EDWIN CANALES MD Discharge Summary PROCEDURES PERFORMED DURING STAY: [None]. ADMITTING DIAGNOSES: 1. Sepsis, secondary to health care associated pneumonia 2. Lung cancer 3. Decreased TSH, secondary to acute illness, 4. Dysphia 5. Hypertension DISCHARGE DIAGNOSES: 1. Acute hypoxemic respiratory failure likely due to aspiration pneumonia vs worsening lung CA His dyspnea, cough, shortness of breath, and infiltrates did not improve despite antibiotics and he became dependent on Vapotherm 2. Dysphagia secondary to metastatic adenocarcinoma. 3. Chronic pain secondary to metastasis of cancer to the thoracic and cervical spine 4.Chronic hypertension. 5. Asymptomatic Hypovolemic Hyponatremia 6. Depression / Insomnia COMPLICATIONS/CHIEF COMPLAINT: Lung Cancer. 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 Aviles for tachycardia, shortness of breath, decreased O2 saturation and hemoptysis. He is status post 10 rounds of chemotherapy, last chemotherapy was discontinued right before and started on radiation therapy metastatic disease. According to patient, he was scheduled for his routine radiation treatment today. When he presented, he developed shortness of breath, tachycardia, without chest pain or chest pressure. Patient also reported hemoptysis that has been going on for several days. He reports blood-tinged sputum, denies any fevers, denies any chills, denies any body aches, denies any headache, denies any nausea or vomiting, does admit to occasional diarrhea. Patient admits to chronic back pain and right-sided pain. He also admits to significant weight loss since beginning therapy. He admits to dysphagia, On initial evaluation in the emergency room. Patient was afebrile, tachypneic, hypotensive, and saturating at 82% on nasal cannula. Hospitalist team was called for admission for possible pneumonia, and desaturation, hypotension, tachycardia and hemoptysis." HOSPITAL COURSE: He was treated with antibiotics for suspected aspiration pneumonia, but didn't improve despite therapy. His WBC count remained elevated and remained persistently short of breath and hypoxic and required higher amounts of oxygen. The infiltrates on his chest x-ray became worse. Eventually, the patient decided to transition to palliative care and then [facility]. He on May 08 at 1:48 AM. The cause of was likely acute hypoxemic respiratory failure in the setting of progressive lung cancer. DISCHARGE MEDICATIONS: Please see below. ALLERGIES: Please see below. PHYSICAL EXAMINATION ON DISCHARGE: n/a LABORATORY DATA: Please see below. IMAGING: See EMR DISPOSITION: 20 . TIME SPENT ON DISCHARGE: Approximately 10 minutes. Vital Signs/I&Os Vital Signs Date Time Temp Pulse Resp B/P (MAP) Pulse Ox O2 Delivery O2 Flow Rate FiO2 05/07/19 22:59 28 05/07/19 21:00 85 Nasal Cannula 35.0 05/07/19 21:00 95 05/07/19 20:00 96.1 118 104/72 (83) I&O- Last 24 Hours up to 6 AM 05/08/19 06:00 Intake Total 540 ml Output Total 800 ml Balance -260 ml Microbiology Microbiology 05/04/19 Gram Stain - Final, Complete 05/04/19 Sputum Culture - Final, Complete Staphylococcus Aureus Yeast Like Organism 05/04/19 Blood Culture - Preliminary, Resulted No Growth after 72 hours. All specime... 05/04/19 Blood Culture - Preliminary, Resulted No Growth after 72 hours. All specime... Discharge Medications Scheduled Dexamethasone (Dexamethasone) 4 Mg Tablet, 4 TAB PO TID, (Reported) Folic Acid (Folic Acid) 1 Mg Tablet, 1 TAB PO DAILY Gabapentin (Gabapentin) 300 Mg Capsule, 300 MG PO BID, (Reported) Lidocaine/Prilocaine (Lidocaine-Prilocaine Cream) 2.5%/2.5% Cream..g., 1 DOSE TOP ASDIRECTED Apply dime size to port area. Do not rub in, cover with cellophane. Leave the cellophane in place until the nurse takes it off Lisinopril (Lisinopril) 10 Mg Tablet, 10 MG PO DAILY, (Reported) Multivitamin (Multivitamins) 1 Each Capsule, 1 CAP PO DAILY, (Reported) Omeprazole Magnesium (Prilosec Otc) 20 Mg Tablet.dr, 20 MG PO DAILY, (Reported) Ondansetron (Ondansetron Odt) 8 Mg Tab.rapdis, 8 MG PO TID for nausea/vomiting Scheduled PRN Albuterol Sulfate (Proair Hfa) 8.5 Gm Hfa.aer.ad, 2 PUFF INH QID PRN for SHORT NESS OF BREATH, (Reported) Fluticasone Propionate (Flonase Allergy Relief) 9.9 Ml [place].susp, 2 SPRAY NA DAILY PRN for NASAL CONGESTION, (Reported) Oxycodone/Acetaminophen (Oxycodone-Acetaminophen 5-325) 1 Each Tablet, 1 TAB PO 1-2 tabs q 4 hrs prn PRN for pain Allergies Coded Allergies: SEASONAL ALLERGIES (Verified Allergy, Unknown, 10/26/18) bee venom protein (honey bee) (Verified Allergy, Unknown, 10/26/18) EDWIN CANALES MD May 08, 2019 14:50
== END 2019-05-08 03:03 | disposition expired | DRG 871 ==
LOC: M ED 10:41 → M ED INP 14:38 → ENRESERV 14:54 → M MSPAV 15:52 → M PCU 05-06 16:32
PROVIDERS: ADMIT Internal Medicine; ATTEND Internal Medicine
DX: A40.3 Sepsis due to Streptococcus pneumoniae (principal); J96.01 Acute respiratory failure with hypoxia; J69.0 Pneumonitis due to inhalation of food and vomit; C79.51 Secondary malignant neoplasm of bone; E87.1 Hypo-osmolality and hyponatremia; C34.90 Malignant neoplasm of unspecified part of unspecified bronchus or lung; C78.7 Secondary malignant neoplasm of liver and intrahepatic bile duct; Z66 Do not resuscitate; Z51.5 Encounter for palliative care; G89.29 Other chronic pain; I10 Essential (primary) hypertension; F32.9 Major depressive disorder, single episode, unspecified; G47.00 Insomnia, unspecified; Z92.21 Personal history of antineoplastic chemotherapy; Z90.2 Acquired absence of lung [part of]; Z87.891 Personal history of nicotine dependence; E87.70 Fluid overload, unspecified; E03.9 Hypothyroidism, unspecified; Z91.030 Bee allergy status; J30.2 Other seasonal allergic rhinitis; Z79.899 Other long term (current) drug therapy; R13.10 Dysphagia, unspecified; R73.09 Other abnormal glucose